=== PATIENT | female | born 1940 | race Caucasian/White ===

== ENCOUNTER 2016-07-08 08:50 | Inpatient (IN) | payer OTHER ==
[~2016-07-08] VITALS: Ht 144.8 cm; Wt 65.0 kg
[~2016-07-08 08:50] MED LIST: METF500T4 PO
[2016-07-08] MEDS ORDERED: SOD CHLORIDE 0.9% 1,000 ML IV STA (09:15)
[2016-07-08] MEDS ORDERED: ONDANSETRON 4 MG INJ IV STA (09:15)
[2016-07-08] MEDS ORDERED: HYDROmorphONE 1 MG/ML SYG IV STA (09:15)
[2016-07-08] MEDS ORDERED: ACETAMINOPHEN 500 MG TAB PO STA (09:20)
--- NOTE | 2016-07-08 09:20 | ERA ---
ER Documentation Chief Complaint Date/Time DATE: 07/08/16 TIME: 09:18 Chief Complaint VOMITING, FEVER, SOB X 2 DAYS HPI This is a 76-year-old female who had the onset this morning at 5 AM of nausea vomiting and diarrhea that is nonbilious and nonbloody. She is complaining of crampy pain in bilateral lower quadrants of the abdomen. She also has pain in her left lower extremity. She has chronic swelling in her left leg which she says the pain is worse in the calf region. No shortness of breath no cough. She patient has had chills and does not know if she has had a fever. Blood sugar is elevated today at 379 at home. The patient takes metformin 500 mg a day. Denies any cough dysuria ROS All systems reviewed and are negative except as per history of present illness. Medications Home Meds Reported Medications Meloxicam* (Meloxicam*) 7.5 Mg/5 Ml Oral.susp, 15 MG PO DAILY, #300 ML 07/08/16 Calcium Carbonate/Vitamin D3 (Oysco 500+D Tablet) 1 Each Tablet, 1 TAB PO DAILY , TAB 07/08/16 Metformin* (Glucophage*) 500 Mg Tab, 500 MG PO 09/21/10 Allergies Allergies: Coded Allergies: No Known Allergy (Verified , 06/06/11) PMhx/Soc History of Surgery: Yes (CSECTION) Anesthesia Reaction: No Hx Neurological Disorder: No Hx Respiratory Disorders: No Hx Cardiac Disorders: No Hx Psychiatric Problems: No Hx Miscellaneous Medical Probl: Yes (CERVICAL CANCER S/P CHEMO XRT 2006) Hx Alcohol Use: No Hx Substance Use: No Hx Tobacco Use: No FmHx Family History: No coronary disease Physical Exam Vitals Vital Signs Date Time Temp Pulse Resp B/P Pulse Ox O2 Delivery O2 Flow Rate FiO2 07/08/16 12:50 92 18 115/50 96 Room Air 07/08/16 11:53 90 18 126/59 96 Room Air 07/08/16 08:56 100.6 99 18 129/60 96 Physical Exam Const: Well-developed, well-nourished Head: Atraumatic, normocephalic Eyes: Normal Conjunctiva, PERRLA, EOMI, normal sclera, no nystagmus ENT: Normal External Ears, Nose and Mouth, moist mucus membranes. Neck: Full range of motion. No meningismus, no lymphadenopathy. Resp: Clear to auscultation bilaterally, no wheezing, rhonchi, rales Cardio: Regular rate and rhythm, no murmurs, S1 S2 present Abd: Soft, mild bilateral lower quadrant abdominal tenderness, non distended. Normal bowel sounds, no guarding or rebound, no pulsitile abdominal masses or bruits Skin: No petechiae or rashes, no ecchymosis , no maculopapular rash Back: No midline or flank tenderness Ext: No cyanosis, left lower leg edema which appears chronic from lymphedema with some firm cath soft tissue is some moderate tenderness, FROM x 4 , normal inspection, neurovascularly intact x 4 Neur: Awake and alert, STR 5/5 x 4, sensation intact x 4, no focal findings, cerebellum intact Psych: Normal Mood and Affect Result Diagram: 07/08/16 0912 07/08/16 0912 Results 24 hrs Laboratory Tests Test 07/08/16 09:12 07/08/16 12:00 White Blood Count 1.210^3/ul Red Blood Count 4.3910^6/ul Hemoglobin 12.4g/dl Hematocrit 38.6% Mean Corpuscular Volume 87.9fl Mean Corpuscular Hemoglobin 28.2pg Mean Corpuscular Hemoglobin Concent 32.1g/dl Red Cell Distribution Width 12.7% Platelet Count 87232^3/UL Mean Platelet Volume 10.8fl Neutrophils % 46.0% Band Neutrophils % 30.0% Lymphocytes % 17.0% Monocytes % 6.0% Eosinophils % 1.0% Neutrophils # 0.610^3/ul Lymphocytes # 0.210^3/ul Monocytes # 0.110^3/ul Eosinophils # 0.010^3/ul Sodium Level 137mmol/L Potassium Level 4.0mmol/L Chloride Level 102mmol/L Carbon Dioxide Level 23mmol/L Anion Gap 16 Blood Urea Nitrogen 24mg/dl Creatinine 1.22mg/dl Glucose Level 295mg/dl Calcium Level 8.9mg/dl Total Bilirubin 0.4mg/dl Direct Bilirubin 0.00mg/dl Indirect Bilirubin 0.4mg/dl Aspartate Amino Transf (AST/SGOT) 29IU/L Alanine Aminotransferase (ALT/SGPT) 34IU/L Alkaline Phosphatase 80IU/L Total Protein 7.3g/dl Albumin 3.8g/dl Globulin 3.50g/dl Albumin/Globulin Ratio 1.08 Lipase 105U/L Urine Color LT. YELLOW Urine Clarity CLEAR Urine pH 6.0 Urine Specific [place] 1.010 Urine Ketones NEGATIVE Urine Nitrite NEGATIVE Urine Bilirubin NEGATIVE Urine Urobilinogen 0.2 E.U./dL Urine Leukocyte Esterase NEGATIVE Urine Microscopic RBC 0-2/HPF Urine Microscopic WBC 0-2/HPF Urine Hemoglobin TRACE Urine Glucose 0.5%% Urine Total Protein NEGATIVE Current Medications Medications (Trade) Dose Ordered Sig/Tristin Route PRN Reason Start Time Stop Time Status Last Admin Dose Admin Sodium Chloride (NS) 1,000 ml @ 1,000 mls/hr Q1H STAT IV 07/08/16 09:15 07/08/16 10:14 DC 07/08/16 09:26 Hydromorphone HCl (Dilaudid) 1 mg ONCE STAT IV 07/08/16 09:15 07/08/16 09:17 DC 07/08/16 09:26 Ondansetron HCl (Zofran Inj) 4 mg ONCE STAT IV 07/08/16 09:15 07/08/16 09:17 DC 07/08/16 09:26 Acetaminophen (Tylenol Tab) 1,000 mg ONCE STAT PO 07/08/16 09:20 07/08/16 09:21 DC 07/08/16 09:26 IV Flush 10 ml 10 ml STK-MED ONCE .ROUTE 07/08/16 10:24 07/08/16 10:25 DC 07/08/16 10:50 Sodium Chloride (NS) 100 ml @ ud STK-MED ONCE .ROUTE 07/08/16 10:24 07/08/16 10:25 DC 07/08/16 10:50 Iohexol 30 ml 30 ml STK-MED ONCE .ROUTE 07/08/16 10:24 07/08/16 10:25 DC 07/08/16 10:50 Cefepime HCl 50 ml @ 100 mls/hr ONCE STAT IVPB 07/08/16 11:17 07/08/16 11:46 DC 07/08/16 11:17 Vancomycin HCl (Vancocin) 250 ml @ 125 mls/hr ONCE ONCE IVPB 07/08/16 11:30 07/08/16 13:29 07/08/16 11:49 Procedures/MDM PROCEDURE: US Lower extremity Venous. CLINICAL INDICATION: Left leg edema TECHNIQUE: Multiple sonographic images of the left lower extremity deep venous system was obtained utilizing grayscale, color-flow, compressive sonography and doppler imaging with augmentation. The images were reviewed on a PACS workstation. COMPARISON: None. FINDINGS: There is normal compressibility and flow within the left common femoral, femoral , posterior tibial, and popliteal veins. The left peroneal vein was not visualized due to edema. RPTAT: AA IMPRESSION: No sonographic evidence for deep venous thrombosis. Left peroneal vein not visualized due to edema. .Davy Bello MD, MD Date Time Electronically viewed and signed by .Davy Bello MD, MD on 07/08/2016 09: 57 .S/ CC: GAGE ORTIZ DO PROCEDURE: CT Abdomen and Pelvis with contrast. CLINICAL INDICATION: Lower abdominal pain. TECHNIQUE: Multiple contiguous axial CT images of the abdomen and pelvis were obtained following the administration of 90 cc of Omnipaque-300. Coronal and sagittal reconstructions were also performed. CTDIvol (mGy): 8.89; Total Exam DLP (mGy-cm): 448.74. One or more of the following dose reduction techniques were utilized: - Automated exposure control. - Adjustment of the mA and/or kV according to patient size. - Use of iterative reconstruction technique. COMPARISON: PET CT 11/20/2011. FINDINGS: Limited imaging of the lower thorax is unremarkable. The liver and spleen are homogeneous in enhancement. The gallbladder, pancreas and adrenal glands are unremarkable. There is considerable decreased asymmetric enhacment of the right kidney which appears secondary to occlusion or severe stenosis of main right renal artery. Enhancement of the peripheral right renal artery branches is observed. The right renal vein appears patent. The right kidney is slightly smaller in size relative to the right kidney. The size of the right kidney is unchanged to slightly smaller when compared to prior examination. There is no perinephric edema. There are no ureteral stones. The abdominal aorta is normal in caliber. Atherosclerotic calcification is present. There is no periaortic / retroperitoneal lymphadenopathy. There is a small hiatal hernia. The stomach is collapsed. The small intestines are unremarkable. Diverticulosis is present. The appendix is normal. There are no focal inflammatory changes of the mesentery. There is no mesenteric lymphadenopathy. There is no ascites. The bladder is distended and normal in contour. Wall thickening of the base of the bladder is observed. Surgical changes compatible with trachelectomy are identified. Extensive arcuate vessel calcification of the residual uterine body is observed. There is no free pelvic fluid. There is no pelvic sidewall or inguinal lymphadenopathy. There is mild concentric wall thickening of the rectosigmoid colon with very mild infiltration of the perirectal fat. Mild facet degenerative changes of the spine are observed. Body wall soft tissues are unremarkable. IMPRESSION: Mild concentric wall thickening of the rectosigmoid colon with very mild infiltration of the perirectal fat. Imaging findings may reflect sequelae of proctocolitis in the appropriate clinical setting. Surgical changes compatible with trachelectomy. The mild thickening of the wall of the base the bladder as well as the thickening of the rectosigmoid colon may be a result of past radiation therapy. Diverticulosis. No evidence of diverticulitis. Considerable decreased asymmetric enhancement of the right kidney with extensive atherosclerotic plaque of the main right renal artery. The smaller peripheral branches demonstrate enhancement. In addition, the right kidney is atrophic. Imaging features suggest sequelae of chronic occlusion or severe stenosis of the right main renal artery. Call report: Imaging findings discussed with Dr. Ortiz at approximately 1135 hours. RPTAT: HLST .Julianne Gama MD, Date Time Electronically viewed and signed by .Julianne Gama MD, MD on 07/08/2016 11:38 .T/ CC: GAGE ORTIZ DO Patient has a low white blood count of 1.2 with 30% bandemia. There is CT evidence of some thickened sigmoid colon could be consistent with a colitis which does fit her clinical picture. Patient had a low-grade temperature 100.6. Lactic acid is currently pending. She received IV fluids as well as intravenous antibiotics. I will admit her to the hospital for fluid resuscitation and intravenous antibiotic therapy and observation. Her neutropenic lab work is concerning Departure Diagnosis: Primary Impression: Neutropenia Qualified Code: D70.9 - Neutropenia, unspecified type Additional Impressions: Bandemia Colitis Condition: Stable GAGE ORTIZ DO July 08, 2016 09:20
[2016-07-08 09:30] LABS: ADD SCAN DIFF NO
[2016-07-08 09:32] LABS: ABNORMAL IP MESSAGE 1; HEMATOCRIT 38.6 % (37.0-47.0); HEMOGLOBIN 12.4 g/dl (12.0-16.0); MEAN CORPUSCULAR HEMOGLOBIN 28.2 pg (29.0-33.0); MEAN CORPUSCULAR HGB CONC 32.1 g/dl (32.0-37.0); MEAN CORPUSCULAR VOLUME 87.9 fl (82.0-101.0); MEAN PLATELET VOLUME 10.8 fl (7.4-10.4); PLATELET COUNT 210 10^3/UL (140-415); RED BLOOD COUNT 4.39 10^6/ul (4.20-5.40); RED CELL DISTRIBUTION WIDTH 12.7 % (11.5-14.5); WHITE BLOOD COUNT 1.2 10^3/ul (4.8-10.8)
--- NOTE | 2016-07-08 09:58 | RADRPT ---
PROCEDURE: US Lower extremity Venous. CLINICAL INDICATION: Left leg edema TECHNIQUE: Multiple sonographic images of the left lower extremity deep venous system was obtained utilizing grayscale, color-flow, compressive sonography and doppler imaging with augmentation. The images were reviewed on a PACS workstation. COMPARISON: None. FINDINGS: There is normal compressibility and flow within the left common femoral, femoral, posterior tibial, and popliteal veins. The left peroneal vein was not visualized due to edema. RPTAT: AA IMPRESSION: No sonographic evidence for deep venous thrombosis. Left peroneal vein not visualized due to edema. .Davy Bello MD, MD Date Time Electronically viewed and signed by .Davy Bello MD, on 07/08/2016 09:57 .S/
[2016-07-08 10:12] LABS: ALBUMIN 3.8 g/dl (3.3-4.9); ALBUMIN/GLOBULIN RATIO 1.08; BILIRUBIN,INDIRECT 0.4 mg/dl (0-1.1); BILIRUBIN,TOTAL 0.4 mg/dl (0.2-1.3); CALCIUM 8.9 mg/dl (8.4-10.2); CREATININE 1.22 mg/dl (0.44-1.00); TOTAL PROTEIN 7.3 g/dl (6.1-8.1)
[2016-07-08] MEDS ORDERED: IOHEXOL 300MG/ML 30 ML BTL ONE (10:24)
[2016-07-08] MEDS ORDERED: SOD CHLORIDE 0.9% 100 ML ONE (10:24)
[2016-07-08] MEDS ORDERED: CALC1TAB79 PO (10:55)
[2016-07-08] MEDS ORDERED: MELO7.5O PO (10:55)
[2016-07-08 11:06] LABS: LYMPHOCYTES # 0.2 10^3/ul (0.8-2.9); MONOCYTE # 0.1 10^3/ul (0.3-0.9); NEUTROPHIL # 0.6 10^3/ul (1.6-7.5)
[2016-07-08] MEDS ORDERED: CEFEPIME 2GM/50 ML (PMX) 50 ML IVPB STA (11:17)
[2016-07-08] MEDS ORDERED: VANCOMYCIN 1 GM (PMX) 250 ML IVPB ONE (11:30)
--- NOTE | 2016-07-08 11:38 | RADRPT ---
PROCEDURE: CT Abdomen and Pelvis with contrast. CLINICAL INDICATION: Lower abdominal pain. TECHNIQUE: Multiple contiguous axial CT images of the abdomen and pelvis were obtained following t he administration of 90 cc of Omnipaque-300. Coronal and sagittal reconstructions were also perform ed. CTDIvol (mGy): 8.89; Total Exam DLP (mGy-cm): 448.74. One or more of the following dose reduction techniques were utilized: - Automated exposure control. - Adjustment of the mA and/or kV according to patient size. - Use of iterative reconstruction technique. COMPARISON: PET CT 11/20/2011. FINDINGS: Limited imaging of the lower thorax is unremarkable. The liver and spleen are homogeneous in enhancement. The gallbladder, pancreas and adrenal glands a re unremarkable. There is considerable decreased asymmetric enhacment of the right kidney which appears secondary to occlusion or severe stenosis of main right renal artery. Enhancement of the peripheral right renal a rtery branches is observed. The right renal vein appears patent. The right kidney is slightly smal ler in size relative to the right kidney. The size of the right kidney is unchanged to slightly sma ller when compared to prior examination. There is no perinephric edema. There are no ureteral ston es. The abdominal aorta is normal in caliber. Atherosclerotic calcification is present. There is no candido aortic / retroperitoneal lymphadenopathy. There is a small hiatal hernia. The stomach is collapsed. The small intestines are unremarkable. Diverticulosis is present. The appendix is normal. There are no focal inflammatory changes of the mesentery. There is no mesenteric lymphadenopathy. There is no ascites. The bladder is distended and normal in contour. Wall thickening of the base of the bladder is obser ihsan. Surgical changes compatible with trachelectomy are identified. Extensive arcuate vessel calcif ication of the residual uterine body is observed. There is no free pelvic fluid. There is no pelvic sidewall or inguinal lymphadenopathy. There is mild concentric wall thickening of the rectosigmoid colon with very mild infiltration of the perirectal fat. Mild facet degenerative changes of the spine are observed. Body wall soft tissues are unremarkable. IMPRESSION: Mild concentric wall thickening of the rectosigmoid colon with very mild infiltration of the perirec jessica fat. Imaging findings may reflect sequelae of proctocolitis in the appropriate clinical setting . Surgical changes compatible with trachelectomy. The mild thickening of the wall of the base the stacy dder as well as the thickening of the rectosigmoid colon may be a result of past radiation therapy. Diverticulosis. No evidence of diverticulitis. Considerable decreased asymmetric enhancement of the right kidney with extensive atherosclerotic jose que of the main right renal artery. The smaller peripheral branches demonstrate enhancement. In ad dition, the right kidney is atrophic. Imaging features suggest sequelae of chronic occlusion or sev ere stenosis of the right main renal artery. Call report: Imaging findings discussed with Dr. Ortiz at approximately 1135 hours. RPTAT: HLST .Julianne Gama MD, MD Date Time Electronically viewed and signed by .Julianne Gama MD, MD on 07/08/2016 11:38 .T/
[2016-07-08 12:19] LABS: ADD UMIC YES; URINE BILIRUBIN (Dip) NEGATIVE (NEGATIVE); URINE BLOOD (Dip) TRACE (NEGATIVE); URINE COLOR LT. YELLOW (YELLOW); URINE KETONES (Dip) NEGATIVE (NEGATIVE); URINE LEUKOCYTE ESTERASE (Dip) NEGATIVE (NEGATIVE); URINE NITRITE (Dip) NEGATIVE (NEGATIVE); URINE TOTAL PROTEIN (Dip) NEGATIVE (NEGATIVE); URINE UROBILINOGEN (Dip) 0.2 E.U./dL (0.1-1.0)
[2016-07-08 12:34] LABS: URINE RBCS 0-2 /HPF (0)
[2016-07-08] MEDS ORDERED: SOD CHLORIDE 0.9% 1,000 ML IV SCH (13:26)
[2016-07-08] MEDS ORDERED: ACETAMINOPHEN 325 MG TAB PO PRN ×2 (13:30→17:30)
[2016-07-08] MEDS ORDERED: ONDANSETRON 4 MG INJ IV PRN (13:30)
[2016-07-08] MEDS ORDERED: SODIUM CHLORIDE 0.9% 1L BAG IV* STA (14:02)
[2016-07-08] MEDS ORDERED: METF500T4 PO (14:54)
[2016-07-08 16:12] VITALS: PULSE 94
[2016-07-08 16:39] VITALS: Ht 144.8 cm; Wt 65.0 kg
[2016-07-08 16:47] VITALS: BP 176/64; PULSE 69; RESP 16
[2016-07-08] MEDS ORDERED: GLUCAGON 1 MG INJ IM PRN (17:30)
[2016-07-08] MEDS ORDERED: GLUCOSE GEL 15 GRAM TUBE BUCCAL PRN (17:30)
[2016-07-08] MEDS ORDERED: NACL 0.9% 3 ML SYG IV SCH (17:30)
[2016-07-08] MEDS ORDERED: DEXTROSE 50% 50 ML SYRINGE IV PRN ×2 (17:30)
[2016-07-08] MEDS ORDERED: VANCOMYCIN IV PER PHARMACY XX SCH (17:30)
[2016-07-08] MEDS ORDERED: ZOLPIDEM 5 MG TAB PO PRN (17:30)
[2016-07-08] MEDS ORDERED: GLUCOSE GEL 15 GRAM TUBE PO PRN ×2 (17:30)
[2016-07-08] MEDS ORDERED: DOCUSATE SODIUM 100 MG CAP PO PRN (17:30)
[2016-07-08] MEDS ORDERED: morphine 2 MG INJ IV PRN (17:30)
[2016-07-08] MEDS ORDERED: HYDROCODONE/APAP (5/325) TAB PO PRN (17:30)
[2016-07-08] MEDS: INSULIN ASPART [NOVOLOG] 3 ML PEN SC SCH ×2 (18:02→20:38)
[2016-07-08] MEDS: SOD CHLORIDE 0.9% 1,000 ML IV SCH (18:07)
[2016-07-08] MEDS: PIPER-TAZO 3.375 GM IV (PMX) 100 ML IVPB SCH (18:07)
[2016-07-08 20:25] VITALS: PULSE 92
[2016-07-08] MEDS: INSULIN GLARGINE [LANtus] 3 ML PEN SC SCH (20:37)
[2016-07-08] MEDS: HEPARIN 5,000 UNIT/0.5 ML VIAL SC SCH (20:37)
[2016-07-08 20:44] VITALS: BP 92/55; RESP 18
[2016-07-08] MEDS ORDERED: SOD CHLORIDE 0.9% 500 ML IV ONE (21:55)
--- NOTE | 2016-07-08 23:07 | CONS ---
DATE OF ADMISSION: 07/08/2016 DATE OF CONSULTATION: 07/08/2016 TYPE OF CONSULTATION: Infectious disease. REASON FOR CONSULTATION: Antibiotic management. HISTORY OF PRESENT ILLNESS: Shakira Byrd is a 76-year-old female who comes in with nausea, vo miting, fever, and shortness of breath of 2 days' duration. The patient had the onset of nausea and vomiting at 5:00 a.m. this morning. She is complaining of crampy abdominal pain in both lower quad rants of the abdomen. She has pain in her left lower extremity as well as swelling, which is chroni c, in her left leg. The pain is worse in the calf region. She complains of chills without fever. Her blood sugar was 379 at home. She takes metformin 500 mg per day. PAST SURGICAL HISTORY: Status post . PAST MEDICAL HISTORY: History of cervical cancer status post chemotherapy in 2006. PHYSICAL EXAMINATION: GENERAL: The patient is an elderly appearing female who is awake, responsive with her daug hter by the bedside. She is in no acute distress, but complaining of pain in both lower extremities . SKIN: Without generalized rash. HEENT: Within normal limits. NECK: Supple. LYMPH NODES: None palpable. CHEST: Decreased breath sounds at the bases. HEART: Without murmur or gallop. ABDOMEN: Soft. She has some bilateral lower quadrant abdominal tenderness without rebound or guard ing. BACK: Without flank tenderness. EXTREMITIES: Without cyanosis or clubbing. The left lower extremity is edematous and also quite re d. The right lower extremity is bandaged. RECTAL AND GENITAL: She has a Angulo catheter in place. NEUROLOGIC: No focal neurological abnormalities. ANCILLARY LABORATORY DATA: White count is 1.2. She has 46% neutrophils, 30% bands, so she is clear ly septic. H and H 12.4 and, platelet count 210,000. BUN and creatinine 24/1.22, glucose is 295. She is chilling, while I am examining her. HOSPITAL COURSE: The patient was started on vancomycin and cefepime. I added 2 blood cultures to h er regimen. An abdominal CT scan was done which showed mild concentric wall thickening of the recto sigmoid colon with very mild infiltration of the perirectal fat that may reflect sequelae of proctoc olitis in the appropriate clinical setting. Surgical changes compatible with ____ colectomy, mild t hickening of the wall at the base of the bladder as well as thickening of the rectosigmoid colon may be result of past radiation therapy for her cervical cancer. IMPRESSION AND PLAN: The patient, no doubt, is septic, etiology is unclear. Her urine is negative, nitrites negative, leukocyte esterase is negative. We have a chest x-ray that I can see. So, ther e are limited images of the lower thorax, which are unremarkable. We should get a chest x-ray in th e a.m. We got 2 sets of blood cultures. I will dictate my findings to the hospitalist. Dictated By: SHANTA JAEGER MD CHET/NTS Conf#: [id number] DID#: [id number] CC: HEDY MAY MD;*End*
--- NOTE | 2016-07-08 23:09 | CONS ---
DATE OF ADMISSION: 07/08/2016 DATE OF CONSULTATION: 07/08/2016 ADDENDUM The patient is obviously septic. The most likely source is cellulitis of the left lower extremity. We have to rule out the possibility of pneumonia as well. The redness in her leg goes up to her th igh and almost up to her groin, so this is the most likely source of her leukopenia and her sepsis. Dictated By: SHANTA JAEGER MD, JD/NTS Conf#: [id number] DID#: [id number] CC: HEDY MAY MD;*EndCC*
[2016-07-08 23:26] VITALS: BP 93/45; RESP 20
[2016-07-09] VITALS (12 sets, daily range): BP systolic 90–128; BP diastolic 54–65; PULSE 45–92; RESP 16–20
[2016-07-09] MEDS: PIPER-TAZO 3.375 GM IV (PMX) 100 ML IVPB SCH ×4 (01:36→17:33)
[2016-07-09] MEDS: ACCU-CHEK XX SCH (01:40)
[2016-07-09 06:47] LABS: ADD SCAN DIFF NO
[2016-07-09 06:52] LABS: ABNORMAL IP MESSAGE 1; HEMATOCRIT 35.7 % (37.0-47.0); HEMOGLOBIN 11.3 g/dl (12.0-16.0); MEAN CORPUSCULAR HGB CONC 31.7 g/dl (32.0-37.0); MEAN CORPUSCULAR VOLUME 88.4 fl (82.0-101.0); MEAN PLATELET VOLUME 10.9 fl (7.4-10.4); PLATELET COUNT 157 10^3/UL (140-415); RED BLOOD COUNT 4.04 10^6/ul (4.20-5.40); RED CELL DISTRIBUTION WIDTH 13.2 % (11.5-14.5); WHITE BLOOD COUNT 9.6 10^3/ul (4.8-10.8)
--- NOTE | 2016-07-09 06:59 | HP ---
DATE OF ADMISSION: 07/08/2016 CHIEF COMPLAINT: Nausea, vomiting and diarrhea. HISTORY OF PRESENT ILLNESS: The patient is a 76-year-old female with a history of cervical cancer, stage II, status post chemoradiation in 2011 as well as bilateral groin lymph node dissection. Stefany ent has had recurrent left lower extremity cellulitis with chronic lymphedema. The patient states t hat starting last night she began to have severe nausea, vomiting as well as diarrhea. She felt ext remely weak to the point where she could not ambulate. The patient presented to the ED where she knox d a CT abdomen that showed proctocolitis. The patient currently has no significant complaints. Mos t of the history is obtained from the patient's daughter who is bedside. PAST MEDICAL HISTORY: 1. Stage II cervical cancer, status post-surgery and chemoradiation in 2011. The patient is not on any chemotherapy at this time, has not been since 2011. 2. Noninsulin requiring diabetes. HOME MEDICATIONS: Calcium vitamin D, metformin, Meloxicam. ALLERGIES: NO KNOWN DRUG ALLERGIES. FAMILY HISTORY: Diabetes. SOCIAL HISTORY: Denies any alcohol, tobacco, or drug abuse. REVIEW OF SYSTEMS: A 12-point review of systems negative except as described. PHYSICAL EXAMINATION: VITAL SIGNS: T-current is 98.1, T-max is 100.6, pulse 69, respiratory rate 16, BP is 136/64, satura tion 97% on room air. GENERAL: No acute distress, lethargic. HEENT: Normocephalic, atraumatic. CHEST: Clear to auscultation. CARDIOVASCULAR: Regular rate and rhythm. ABDOMEN: Nondistended, nontender, soft. EXTREMITIES: No clubbing, cyanosis. Cellulitis with erythema is noted in the left lower extremity. LABORATORY DATA: White count is 1.2, hemoglobin is 12.4. Chemistry within normal limits except for glucose of ____. Lactic acid is 5.3. DIAGNOSTICS: Ultrasound of the lower extremity venous shows no evidence for DVT. Abdominopelvic CT shows proctocolitis, diverticulosis, no evidence of diverticulitis, atherosclerosis in the right re nal artery, right kidney is atrophic. Image suggests sequellae of coronary occlusion or severe sten osis of the right renal artery. ASSESSMENT AND PLAN: 1. Severe sepsis, likely secondary to colitis and/or cellulitis in the left lower extremity. The p atient has been having symptoms of gastroenteritis. The patient also has cellulitis in the left low er extremity, but this is a chronic issue as the patient has presumed lymphedema with intermittent e rythema. Will treat with broad spectrum antibiotics. We will follow up on lactic acid level. We w ill get an infectious disease consultation. We will follow up on cultures. 2. History of diabetes. Will check A1c. Sugars are severely elevated at this time. Will put the patient on sliding scale as well as Lantus. 3. History of cervical cancer, status post-surgery and chemoradiation in 2011. The patient is no l onger on any chemotherapy. 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 5. Severe leukopenia, this could be from underlying sepsis. We will continue to monitor. 6. Acute versus chronic kidney injury. The patient's creatinine was normal in 2011. The patient m ay have elevation of creatinine secondary to acute tubular necrosis from sepsis. Will monitor renal function. Will treat with IV fluids. 7. Prophylaxis. Lovenox. Dictated By: HEDY MAY MD BS/NTS Conf#: [id number] DID#: [id number]
[2016-07-09 07:09] LABS: ALBUMIN 2.6 g/dl (3.3-4.9); POTASSIUM 4.7 mmol/L (3.5-5.1)
[2016-07-09 07:12] LABS: ALBUMIN/GLOBULIN RATIO 0.81; BILIRUBIN,INDIRECT 0.2 mg/dl (0-1.1); BILIRUBIN,TOTAL 0.2 mg/dl (0.2-1.3); CALCIUM 7.4 mg/dl (8.4-10.2); CREATININE 1.78 mg/dl (0.44-1.00); PHOSPHORUS 5.6 mg/dl (2.5-4.9); TOTAL PROTEIN 5.8 g/dl (6.1-8.1)
[2016-07-09 07:13] LABS: CHOL/HDL RATIO 2.1 RATIO; MAGNESIUM 1.2 mg/dl (1.7-2.5)
[2016-07-09] MEDS: INSULIN ASPART [NOVOLOG] 3 ML PEN SC SCH ×4 (07:55→20:20)
--- NOTE | 2016-07-09 08:11 | RADRPT ---
PROCEDURE: XR Chest. CLINICAL INDICATION: Sepsis TECHNIQUE: A single AP view of the chest was obtained. COMPARISON: Chest x-ray dated 11/26/2006 FINDINGS: No focal airspace opacification, pleural effusion or pneumothorax is seen. There is mild bibasilar a telectasis. The cardiomediastinal silhouette is within normal limits for size. Calcifications are s een within the aortic arch. The osseous structures are unremarkable. IMPRESSION: 1. No radiographic evidence of acute cardiopulmonary disease. 2. Mild bibasilar atelectasis. 3. Aortic atherosclerosis. RPTAT: HH .Delphine Burns MD, MD Date Time Electronically viewed and signed by .Delphine Burns MD, on 07/09/2016 08:10 .G/
[2016-07-09] MEDS: HEPARIN 5,000 UNIT/0.5 ML VIAL SC SCH ×2 (08:51→20:27)
[2016-07-09] MEDS: SOD CHLORIDE 0.9% 1,000 ML IV SCH ×3 (08:51→21:20)
[2016-07-09 09:19] LABS: MONOCYTE # 0.3 10^3/ul (0.3-0.9); MYELOCYTES # 0.5; NEUTROPHIL # 2.5 10^3/ul (1.6-7.5)
[2016-07-09] MEDS ORDERED: VANCOMYCIN 1 GM in NS 250 ML IVPB SCH (11:00)
--- NOTE | 2016-07-09 11:56 | CONS ---
DATE OF ADMISSION: 07/08/2016 DATE OF CONSULTATION: 07/09/2016 TYPE OF CONSULTATION: Nephrology. REASON FOR CONSULTATION: Acute kidney injury. PHYSICIAN REQUESTING CONSULT: Dr. Albarran. HISTORY OF PRESENT ILLNESS: This is a 76-year-old female with a past medical history of cervical ca ncer stage II, status post chemo and radiation in 2011, history of diabetes, questionable history of CKD, who presents to [facility] with fever, vomiting and shortness of breath x2 d ays. Patient does complain of abdominal pain with associated nausea and vomiting during this time. She was also noted to have increased erythema o the lower extremity. As a result, she came to [facility] for evaluation. Upon arrival, the patient had a CT scan of the abdomen and pelvis with contrast which showed evidence of right renal artery stenosis and concentric wall thick ening of the rectosigmoid colon suggesting proctocolitis. The patient in the emergency room was giv en IV fluids, IV antibiotics and admitted to telemetry for evaluation. In terms of the patient's renal history, the patient is not aware of having underlying CKD. The pat iebob does have longstanding diabetes. She denies any diabetic retinopathy. She does complain of na usea, vomiting, but denies any rash or frothy urine. PAST MEDICAL HISTORY: As stated above, history of cervical cancer, history of diabetes. PAST SURGICAL HISTORY: Status post , status post cervical resection. ALLERGIES: NO KNOWN DRUG ALLERGIES. FAMILY HISTORY: Noncontributory. SOCIAL HISTORY: Does not drink, smoke or do drugs. MEDICATIONS: Patient medications have been reviewed. REVIEW OF SYSTEMS: A 14-point review of systems was conducted. Pertinent positives stated in HPI, otherwise negative. PHYSICAL EXAMINATION: VITAL SIGNS: Blood pressure is 103/55, respirations 20, pulse 68, temperature 98.4. HEENT: Head is normocephalic. NECK: Supple. HEART: Regular rate. LUNGS: Show diminished breath sounds at the base. ABDOMEN: Soft, nontender to palpation. No rebound or guarding. EXTREMITIES: Negative for clubbing, cyanosis. Positive edema, positive erythema of lower extremity . DERMATOLOGIC: No rashes. MUSCULOSKELETAL: No joint effusions. NEUROLOGIC: No focal deficits. MEDICATIONS: Have been reviewed. LABORATORY DATA: Shows a white count of 9.6, hemoglobin 9.2, hematocrit 35.7, platelet count of 157 . Sodium 135, potassium 4.7, chloride 103, BUN 32, creatinine 1.78. Lactic acid 3.2. Hemoglobin A 1c 8.6. Urinalysis reviewed. No RBCs, WBCs, no protein noted. IMAGING STUDIES: As stated in HPI. ASSESSMENT AND PLAN: This is a 76-year-old female who presents with: 1. Nonoliguric acute kidney injury on top of chronic kidney disease with unknown baseline creatinin e. Etiology of acute kidney injury is likely multifactorial secondary to hemodynamics, sepsis, NSAI D use, possible contrast-associated nephropathy. The patient's initial urinalysis was bland. The p atient's CT scan shows no hydronephrosis, but there is evidence of renal artery stenosis. Plan at t his point is to repeat the patient's urinalysis. Will check urine electrolytes, check a FENa (fract ional excretion of urea). We will also quantify the patient's proteinuria by checking a protein/cre atinine ratio and albumin/creatinine ratio. Would continue IV fluids. Continue IV antibiotics. Ot herwise, continue supportive care, renally dose meds, avoid nephrotoxins. 2. Chronic kidney disease secondary to possible renal vascular hypertension and diabetes. The yogesh ent is currently in acute kidney injury as stated above. The patient's CT scan does show evidence o f right renal artery stenosis. Plan at this point is to treat acute kidney injury as stated above. Will continue disease factor modification. We will do further evaluation of renal artery stenosis. 3. Renal artery stenosis. Patient's CT angio shows possible stenosis of the right main artery. Pl an at this point is to get a right renal arterial Doppler ultrasound to evaluate renal parenchyma an d to blood flow in the right renal artery. If the patient's right kidney is significantly atrophic, it is unclear if intervention would provide any clinical benefit. Would also possibly consider a v ascular surgery evaluation. Will monitor closely. 4. Mineral bone disorder. Continue to monitor calcium and phosphorus levels. 5. Anemia. Continue to monitor H and H levels. No need for Epogen. 6. Severe sepsis and lower extremity cellulitis. Continue current antibiotic regimen. 7. Diabetes. Continue current insulin regimen. 8. Gastrointestinal and deep vein thrombosis prophylaxis. 9. History of cervical cancer status post chemoradiation. 10. Hypomagnesemia. Replete with magnesium sulfate. Dictated By: KANDY MCELROY Conf#: [id number] DID#: [id number]
--- NOTE | 2016-07-09 12:04 | PN ---
Date/Time of Note Date/Time of Note DATE: 07/09/16 TIME: 11:57 Assessment/Plan VTE Prophylaxis VTE Prophylaxis Intervention: LMWH Lines/Catheters IV Catheter Type (from Nrs): Peripheral IV Assessment/Plan Chief Complaint/Hosp Course 1. Severe sepsis secondary to sepsis from left lower extremity cellulitis as well as UTI Patient has chronic lymphedema in this left lower extremity secondary to previous surgery for cervical cancer Blood culture shows likely strep and 2 out of 2 cultures Urine culture is positive for gram-negative rods Continue broad-spectrum antibiotics with vancomycin and Zosyn ID consultation appreciated 2. History of diabetes-A1c is 8.6 Continue Lantus and sliding scale 3. History of cervical cancer, status post-surgery and chemoradiation in 2012 The patient is no longer on any chemotherapy, no acute issues 4. 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 5. Severe leukopenia secondary to severe sepsis-resolved 6. Acute versus chronic kidney injury likely secondary to ATN from sepsis Creatinine was normal in 2012 Nephrology consultation Increase IV fluid rate 7. Chronic ulcer in medial malleolus of right lower extremity likely a venous insufficiency ulcer Vascular consult Wound care consult Prophylaxis- Lovenox Problems: Subjective 24 Hr Interval Summary Constitutional: no complaints Exam/Review of Systems Vital Signs Vitals Vital Signs Date Time Temp Pulse Resp B/P Pulse Ox O2 Delivery O2 Flow Rate FiO2 07/09/16 11:15 98.2 78 16 98/65 97 07/08/16 16:47 Room Air Intake and Output 07/08/16 07/08/16 07/09/16 15:00 23:00 07:00 Intake Total 150 ml 1550 ml Output Total 400 ml 350 ml Balance -250 ml 1200 ml Exam Constitutional: alert Respiratory: clear to auscultation Cardiovascular: regular rate and rhythm Gastrointestinal: soft, No distended Musculoskeletal: No nl extremities to inspection Results Result Diagram: 07/09/16 0610 07/09/16 0610 Results 24 hrs Laboratory Tests Test 07/08/16 12:00 07/08/16 12:55 07/08/16 17:35 07/08/16 20:29 Urine Color LT. YELLOW Urine Clarity CLEAR Urine pH 6.0 Urine Specific [place] 1.010 Urine Ketones NEGATIVE Urine Nitrite NEGATIVE Urine Bilirubin NEGATIVE Urine Urobilinogen 0.2 E.U./dL Urine Leukocyte Esterase NEGATIVE Urine Microscopic RBC 0-2 Urine Microscopic WBC 0-2 Urine Hemoglobin TRACE Urine Glucose 0.5% H Urine Total Protein NEGATIVE Lactic Acid Level 5.3 *H Bedside Glucose 165 206 Test 07/08/16 21:05 07/09/16 01:40 07/09/16 06:10 07/09/16 08:34 Lactic Acid Level 4.7 *H 3.2 H Bedside Glucose 164 114 White Blood Count 9.6 # Red Blood Count 4.04 L Hemoglobin 11.3 L Hematocrit 35.7 L Mean Corpuscular Volume 88.4 Mean Corpuscular Hemoglobin 28.0 L Mean Corpuscular Hemoglobin Concent 31.7 L Red Cell Distribution Width 13.2 Platelet Count 157 # Mean Platelet Volume 10.9 H Neutrophils % 26.0 L Band Neutrophils % 48.0 H Lymphocytes % 10.0 L Monocytes % 3.0 Eosinophils % Metamyelocytes % 7.0 H Myelocytes % 5.0 H Promyelocytes % 1.0 H Neutrophils # 2.5 Lymphocytes # 1.0 Monocytes # 0.3 Eosinophils # Metamyelocytes # 0.7 Myelocytes # 0.5 Promyelocytes # 0.1 Differential Comment MANUAL DIFF Sodium Level 135 Potassium Level 4.7 Chloride Level 103 Carbon Dioxide Level 22 Anion Gap 15 Blood Urea Nitrogen 32 H Creatinine 1.78 H Glucose Level 138 # Hemoglobin A1c 8.6 H Calcium Level 7.4 L Phosphorus Level 5.6 H Magnesium Level 1.2 L Total Bilirubin 0.2 Direct Bilirubin 0.00 Indirect Bilirubin 0.2 Aspartate Amino Transf (AST/SGOT) 71 H Alanine Aminotransferase (ALT/SGPT) 36 Alkaline Phosphatase 39 #L Total Protein 5.8 #L Albumin 2.6 #L Globulin 3.20 Albumin/Globulin Ratio 0.81 Triglycerides Level 83 Cholesterol Level 104 LDL Cholesterol, Calculated 38 HDL Cholesterol 49 Cholesterol/HDL Ratio 2.1 Medications Medications Current Medications Sodium Chloride (NS) 1,000 ml @ 150 mls/hr Q6H40M IV Last administered on 07/09t 08:51; Admin Dose 100 MLS/HR; Start 07/08/16 at 17:04 Ondansetron HCl (Zofran Inj) 4 mg Q6H PRN IV NAUSEA AND/OR VOMITING; Start at 17:30 Acetaminophen (Tylenol Tab) 650 mg Q6H PRN PO PAIN LEVEL 1-3 OR FEVER; Start at 17:30 Acetaminophen/ Hydrocodone Bitart ([place] (5/325)) 1 tab Q6H PRN PO MODERATE PAIN LEVEL 4-6; Start 07/08/16 at 17:30 Morphine Sulfate (morphine) 2 mg Q4H PRN IV SEVERE PAIN LEVEL 7-10 Last administered on 07/08/16 21:30; Admin Dose 2 MG; Start 07/08/16 at 17:30 Docusate Sodium (Colace) 100 mg Q12H PRN PO CONSTIPATION; Start 07/08/16 at 17: 30 Zolpidem Tartrate (Ambien) 5 mg QHS PRN PO SLEEP; Start 07/08/16 at 17:30 Heparin Sodium (Porcine) 5000 unit 5,000 unit Q12 SC Last administered on 08:51; Admin Dose 5,000 UNIT; Start 07/08/16 at 21:00 Piperacillin Sod/ Tazobactam Sod (Zosyn 3.375gm/ 100 ml (Pmx)) 100 ml @ 200 mls /hr Q6 IVPB Last administered on 07/09/16 06:43; Admin Dose 200 MLS/HR; Start 07/08/16 at 18:00 Insulin Glargine (Lantus) 10 unit DAILY@20 SC Last administered on 07/08/16 20 :37; Admin Dose 10 UNIT; Start 07/08/16 at 20:00 Diagnostic Test (Pha) (Accu-Chek) 1 ea 02 XX ; Start 07/09/16 at 02:00 Miscellaneous Information 1 ea NOTE XX ; Start 07/08/16 at 17:30 Glucose (Glutose) 15 gm Q15M PRN PO DECREASED GLUCOSE; Start 07/08/16 at 17:30 Glucose (Glutose) 22.5 gm Q15M PRN PO DECREASED GLUCOSE; Start 07/08/16 at 17: 30 Dextrose (D50w Syringe) 25 ml Q15M PRN IV DECREASED GLUCOSE; Start 07/08/16 at 17:30 Dextrose (D50w Syringe) 50 ml Q15M PRN IV DECREASED GLUCOSE; Start 07/08/16 at 17:30 Glucagon (Glucagen) 1 mg Q15M PRN IM DECREASED GLUCOSE; Start 07/08/16 at 17:30 Glucose 15 gm 15 gm Q15M PRN BUCCAL DECREASED GLUCOSE; Start 07/08/16 at 17:30 Vancomycin HCl (Vancocin) 250 ml @ 125 mls/hr Q24H IVPB Last administered on t 11:18; Admin Dose 125 MLS/HR; Start 07/09/16 at 11:00 HEDY MAY July 09, 2016 12:04
[2016-07-09] MEDS: ONDANSETRON 4 MG INJ IV PRN ×2 (12:31→17:32)
--- NOTE | 2016-07-09 19:00 | PN ---
DATE: 07/09/2016 SUBJECTIVE: The patient is alert, lying comfortably in bed, complaining of left lower extremity miladis n. No fevers. WBC today 9.6, platelets 157, neutrophils 26, bands 48, lymphs 10, monos 3. BUN 32, creatinine 1.78 . MICROBIOLOGY: Blood cultures are growing gram-positive cocci in pairs and chains. Urine culture gr owing gram-negative rods. ANTIMICROBIALS: The patient is on: 1. IV vancomycin. 2. Zosyn. PHYSICAL EXAMINATION: GENERAL: This is an obese, well-developed, elderly woman who is awake, in no distress. HEENT: Head atraumatic, normocephalic. Sclerae anicteric. Buccal mucosa dry. NECK: Supple, trachea midline. CHEST: Rise symmetrical. Breath sounds diminished to bases. HEART: S1, S2. ABDOMEN: Soft, bowel tones present. EXTREMITIES: With left lower extremity edema, erythema. ASSESSMENT: 1. Sepsis with fever, bandemia, leukopenia, present on admission. 2. Bacteremia, possibly secondary to cellulitis of left lower extremity. 3. Gram-negative rods urinary tract infection. 4. History of cervical cancer, status post chemotherapy in 2006 as well as radiation. 5. Diabetes. PLAN: The patient remains clinically stable. Extremity ultrasound revealed no evidence of thrombos is. She is on broad-spectrum antibiotics. Chest x-ray revealed no evidence of pneumonia, pending f inal cultures. Dictated By: MAXIME BLACKWELL CERTIFIED NOVELL ADMINISTRATOR for SHANTA CURTIS/NTS Conf#: [id number] DID#: [id number]
[2016-07-09] MEDS: INSULIN GLARGINE [LANtus] 3 ML PEN SC SCH (20:27)
[2016-07-10] VITALS (13 sets, daily range): BP systolic 116–142; BP diastolic 54–68; PULSE 79–92; RESP 18–20
[2016-07-10] MEDS: PIPER-TAZO 3.375 GM IV (PMX) 100 ML IVPB SCH ×2 (00:46→05:46)
[2016-07-10] MEDS: ACCU-CHEK XX SCH (02:00)
[2016-07-10] MEDS: SOD CHLORIDE 0.9% 1,000 ML IV SCH ×3 (05:46→21:05)
[2016-07-10 07:20] LABS: ADD SCAN DIFF NO
[2016-07-10 07:38] LABS: ABNORMAL IP MESSAGE 1; HEMATOCRIT 30.9 % (37.0-47.0); HEMOGLOBIN 10.3 g/dl (12.0-16.0); MEAN CORPUSCULAR HEMOGLOBIN 28.5 pg (29.0-33.0); MEAN CORPUSCULAR HGB CONC 33.3 g/dl (32.0-37.0); MEAN CORPUSCULAR VOLUME 85.4 fl (82.0-101.0); MEAN PLATELET VOLUME 11.3 fl (7.4-10.4); PLATELET COUNT 144 10^3/UL (140-415); RED BLOOD COUNT 3.62 10^6/ul (4.20-5.40); RED CELL DISTRIBUTION WIDTH 13.2 % (11.5-14.5); WHITE BLOOD COUNT 12.4 10^3/ul (4.8-10.8)
[2016-07-10 07:54] LABS: POTASSIUM 3.4 mmol/L (3.5-5.1)
[2016-07-10] MEDS: INSULIN ASPART [NOVOLOG] 3 ML PEN SC SCH ×4 (07:55→20:23)
[2016-07-10 07:57] LABS: CREATININE 1.64 mg/dl (0.44-1.00)
[2016-07-10 07:58] LABS: CALCIUM 6.9 mg/dl (8.4-10.2); MAGNESIUM 1.4 mg/dl (1.7-2.5); PHOSPHORUS 3.4 mg/dl (2.5-4.9)
[2016-07-10] MEDS ORDERED: POTASSIUM CHLORIDE (SR) 20 MEQ TAB PO STA ×2 (08:12→10:02)
[2016-07-10 09:51] LABS: LYMPHOCYTES # 0.4 10^3/ul (0.8-2.9)
[2016-07-10] MEDS: HEPARIN 5,000 UNIT/0.5 ML VIAL SC SCH ×2 (10:01→21:09)
--- NOTE | 2016-07-10 10:22 | PN ---
DATE: 07/10/2016 SUBJECTIVE: The patient is stable, no acute events overnight. No fevers, chills, nausea, vomiting. No shortness of breath. OBJECTIVE: VITAL SIGNS: Blood pressure is 131/56, respirations 18, pulse 90, temperature 97.9. HEENT: Head is normocephalic. NECK: Supple. HEART: Regular rate. LUNGS: Show diminished breath sounds at the bases. ABDOMEN: Soft, nontender to palpation. No rebound or guarding. EXTREMITIES: Negative for clubbing, cyanosis. Positive erythema. Trace edema. DERMATOLOGIC: No rashes. MUSCULOSKELETAL: No joint effusions. NEUROLOGIC: No change in exam. MEDICATIONS: The patient's medications have been reviewed. LABORATORY DATA: Shows sodium 132, potassium 3.4, chloride 109, BUN 36, creatinine 1.65, glucose __ ___65. White count 12.4, hemoglobin 10.3, hematocrit 30.9, platelet count is 144. IMAGING: The patient's CT scan was reviewed. Doppler renal arterial ultrasound is pending. ASSESSMENT AND PLAN: 1. Nonoliguric acute kidney injury on top of chronic kidney disease with unknown baseline creatinin e. Etiology of acute kidney injury is multifactorial secondary to hemodynamics, sepsis, NSAID use, possible contrast-associated nephropathy. The patient's renal function appears to be stabilized in the last 24 hours, as patient may be entering maintenance phase of acute tubular necrosis. Repeat u rinalysis, urine electrolytes are pending. At this point, continue current treatment plan, supporti ve care. We will decrease the IV fluids to 75 mL an hour and monitor closely. 2. Chronic kidney disease likely secondary to renovascular hypertension and diabetes. The patient is currently in acute kidney injury as stated above. We will continue current treatment plan. Cont inue disease factor modification and monitor closely. 3. Renal artery stenosis. The patient's CT angio shows possible stenosis right main artery. We wi ll get a right renal arterial Doppler ultrasound to evaluate renal parenchyma and blood flow to righ t renal artery. If patient's renal artery is significantly atrophic, it is unclear if intervention would provide benefit. We would also consider possible vascular evaluation. 4. Mineral bone disorder. Continue to monitor calcium and phosphorus levels. 5. Hypokalemia, replete with potassium chloride. 6. Anemia. Continue to monitor hemoglobin and hematocrit levels. 7. Severe sepsis and cellulitis. Continue current antibiotic regimen. 8. Diabetes. Continue current insulin regimen. 9. History of cervical cancer, status post chemoradiation. 10. Hypomagnesemia. 11. Gastrointestinal and deep venous thrombosis prophylaxis. Dictated By: KANDY JUDD/NICOL Conf#: [id number] DID#: [id number]
[2016-07-10 10:52] LABS: ADD UMIC YES; URINE BILIRUBIN (Dip) NEGATIVE (NEGATIVE); URINE BLOOD (Dip) 2+ (NEGATIVE); URINE COLOR LT. YELLOW (YELLOW); URINE GLUCOSE (Dip) NEGATIVE (NEGATIVE); URINE KETONES (Dip) NEGATIVE (NEGATIVE); URINE LEUKOCYTE ESTERASE (Dip) NEGATIVE (NEGATIVE); URINE NITRITE (Dip) NEGATIVE (NEGATIVE); URINE TOTAL PROTEIN (Dip) 1+ (NEGATIVE); URINE UROBILINOGEN (Dip) 0.2 E.U./dL (0.1-1.0)
--- NOTE | 2016-07-10 11:47 | RADRPT ---
PROCEDURE: US Renal Artery Duplex CLINICAL INDICATION: renal artery stenosis TECHNIQUE: Pulse wave and color duplex Doppler ultrasound of the aorta and the renal arteries was done. COMPARISON: None. FINDINGS: The right kidney measures 9.8 cm in length and the left kidney 10.7 cm in length. Bilaterally, ther e is no evidence of hydronephrosis, cysts, mass or calcifications. Peak systolic velocity within the aorta was 69 cm/sec. The right renal artery is not visualized. Peak systolic velocities within the left renal artery were as follows: Flow in the proximal to mid left renal artery is not visualized. Distal -60 cm/sec Left Renal-Aortic ratio: 0.9 IMPRESSION: Markedly limited study. The right renal artery and flow in the proximal to mid left renal artery are not visualized. Consid er an MRA study for further evaluation of renal artery stenosis. No hydronephrosis bilaterally. RPTAT: EE Physician Gail Date Time Electronically viewed and signed by Physician Gail on 07/10/2016 11:46 /
[2016-07-10] MEDS ORDERED: MAGNESIUM SULFATE 4 GM/100 ML 100 ML IVPB ONE (12:00)
[2016-07-10] MEDS ORDERED: PIPER-TAZO 2.25 GM (PMX) 50 ML IVPB SCH (12:00)
[2016-07-10] MEDS: CEFTRIAXONE 1 GM/50 ML (PMX) 50 ML IVPB SCH (12:29)
--- NOTE | 2016-07-10 13:14 | PN ---
DATE: 07/10/2016 SUBJECTIVE: No acute changes. The patient is alert, feels better. Looks comfortable, no fevers. WBC 12.4, platelets 144, neutrophils 89, bands 8, lymphs 3. BUN 33, creatinine 1.64. ANTIMICROBIALS: 1. Vancomycin. 2. Zosyn. MICROBIOLOGY: Blood culture growing strep. Urine culture growing E. coli. Repeat blood cultures n egative. PHYSICAL EXAMINATION: GENERAL: Obese, well-developed elderly woman who is awake, in no distress. HEENT: Head atraumatic, normocephalic. Sclerae anicteric. Buccal mucosa pink. NECK: Supple, trachea midline. CHEST: Rise symmetrical. Breath sounds clear. HEART: S1, S2. ABDOMEN: Soft, bowel tones present. EXTREMITIES: Left lower extremity decreasing erythema. ASSESSMENT: 1. Resolving sepsis. 2. Streptococcal bacteremia with repeat blood cultures preliminary negative. 3. Urinary tract infection. 4. Left lower extremity acute on chronic cellulitis. 5. History of cervical cancer status post chemoradiation. 6. Diabetes. PLAN: The patient remains stable and overall improving. We are going to change Zosyn to Rocephin, continue vancomycin, continue left lower extremity elevation. Dictated By: MAXIME BLACKWELL GEOPHYSICAL SUPPORT SPECIALIST for SHANTA CURTIS/NICOL Conf#: [id number] DID#: [id number]
--- NOTE | 2016-07-10 17:18 | PN ---
Date/Time of Note Date/Time of Note DATE: 07/10/16 TIME: 17:10 Assessment/Plan VTE Prophylaxis VTE Prophylaxis Intervention: LMWH Lines/Catheters IV Catheter Type (from Nrs): Peripheral IV Assessment/Plan Chief Complaint/Hosp Course 1. Severe sepsis secondary to sepsis from left lower extremity cellulitis as well as UTI Patient has chronic lymphedema in this left lower extremity secondary to previous surgery for cervical cancer Blood culture shows likely strep and 2 out of 2 cultures Urine culture is positive for gram-negative rods Continue broad-spectrum antibiotics with vancomycin and Zosyn ID consultation appreciated 2. History of diabetes-A1c is 8.6 Continue Lantus and sliding scale 3. History of cervical cancer, status post-surgery and chemoradiation in 2011 The patient is no longer on any chemotherapy, no acute issues 4. 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 5. Severe leukopenia secondary to severe sepsis-resolved 6. Acute versus chronic kidney injury likely secondary to ATN from sepsis- creatinine now trending down Creatinine was normal in 2011 Nephrology consultation appreciated Continue IV fluids 7. Chronic ulcer in medial malleolus of right lower extremity likely a venous insufficiency ulcer Vascular consult Wound care consult Prophylaxis- Lovenox Problems: Subjective 24 Hr Interval Summary Constitutional: no complaints Exam/Review of Systems Vital Signs Vitals Vital Signs Date Time Temp Pulse Resp B/P Pulse Ox O2 Delivery O2 Flow Rate FiO2 07/10/16 16:13 79 07/10/16 15:40 98.2 19 118/56 98 07/08/16 16:47 Room Air Intake and Output 07/09/16 07/09/16 07/10/16 15:00 23:00 07:00 Intake Total 580 ml 1325 ml Output Total 500 ml Balance 80 ml 1325 ml Exam Constitutional: alert Respiratory: clear to auscultation Cardiovascular: regular rate and rhythm Gastrointestinal: soft, No distended Musculoskeletal: No nl extremities to inspection Results Result Diagram: 07/10/16 0705 07/10/16 0705 Results 24 hrs Laboratory Tests Test 07/09/16 17:34 07/09/16 20:19 07/10/16 06:45 07/10/16 07:05 Bedside Glucose 115 104 Urine Color LT. YELLOW Urine Clarity CLEAR Urine pH 5.5 Urine Specific [place] 1.025 Urine Ketones NEGATIVE Urine Nitrite NEGATIVE Urine Bilirubin NEGATIVE Urine Urobilinogen 0.2 E.U./dL Urine Leukocyte Esterase NEGATIVE Urine Microscopic RBC 2-5 Urine Microscopic WBC 0-2 Urine Coarse Granular Casts RARE Urine Hemoglobin 2+ H Urine Random Creatinine 57.84 Urine Random Sodium 114 H Urine Glucose NEGATIVE Urine Total Protein 77.0 H White Blood Count 12.4 #H Red Blood Count 3.62 L Hemoglobin 10.3 L Hematocrit 30.9 L Mean Corpuscular Volume 85.4 Mean Corpuscular Hemoglobin 28.5 L Mean Corpuscular Hemoglobin Concent 33.3 Red Cell Distribution Width 13.2 Platelet Count 144 Mean Platelet Volume 11.3 H Neutrophils % 89.0 H Band Neutrophils % 8.0 H Lymphocytes % 3.0 L Monocytes % Eosinophils % Basophils % Nucleated Red Blood Cells % Neutrophils # 11.0 H Lymphocytes # 0.4 L Monocytes # Eosinophils # Basophils # Nucleated Red Blood Cells # Sodium Level 136 Potassium Level 3.4 L Chloride Level 109 Carbon Dioxide Level 20 L Anion Gap 10 # Blood Urea Nitrogen 33 H Creatinine 1.64 H Glucose Level 65 #L Calcium Level 6.9 L Phosphorus Level 3.4 # Magnesium Level 1.4 L Test 07/10/16 08:14 07/10/16 08:33 07/10/16 09:13 07/10/16 12:16 Bedside Glucose 68 L 69 L 111 98 Medications Medications Current Medications Sodium Chloride (NS) 1,000 ml @ 75 mls/hr [id number] IV Last administered on 07/10 15:49; Admin Dose 75 MLS/HR; Start 07/08/16 at 17:04 Ondansetron HCl (Zofran Inj) 4 mg Q6H PRN IV NAUSEA AND/OR VOMITING Last administered on 07/09/16 17:32; Admin Dose 4 MG; Start 07/08/16 at 17:30 Acetaminophen (Tylenol Tab) 650 mg Q6H PRN PO PAIN LEVEL 1-3 OR FEVER Last administered on 07/10/16 12:17; Admin Dose 650 MG; Start 07/08/16 at 17:30 Acetaminophen/ Hydrocodone Bitart ([place] (5/325)) 1 tab Q6H PRN PO MODERATE PAIN LEVEL 4-6; Start 07/08/16 at 17:30 Morphine Sulfate (morphine) 2 mg Q4H PRN IV SEVERE PAIN LEVEL 7-10 Last administered on 5/22/17at 21:30; Admin Dose 2 MG; Start 07/08/16 at 17:30 Docusate Sodium (Colace) 100 mg Q12H PRN PO CONSTIPATION; Start 07/08/16 at 17: 30 Zolpidem Tartrate (Ambien) 5 mg QHS PRN PO SLEEP; Start 07/08/16 at 17:30 Heparin Sodium (Porcine) (Heparin (5000 Units/0.5 ml)) 5,000 unit Q12 SC Last administered on 07/10/16 10:01; Admin Dose 5,000 UNIT; Start 07/08/16 at 21:00 Insulin Glargine (Lantus) 10 unit DAILY@20 SC Last administered on 07/09/16 20 :27; Admin Dose 10 UNIT; Start 07/08/16 at 20:00 Diagnostic Test (Pha) (Accu-Chek) 1 ea 02 XX ; Start 07/09/16 at 02:00 Miscellaneous Information 1 ea NOTE XX ; Start 07/08/16 at 17:30 Glucose (Glutose) 15 gm Q15M PRN PO DECREASED GLUCOSE Last administered on 07/10 08:22; Admin Dose 15 GM; Start 07/08/16 at 17:30 Glucose (Glutose) 22.5 gm Q15M PRN PO DECREASED GLUCOSE; Start 07/08/16 at 17: 30 Dextrose (D50w Syringe) 25 ml Q15M PRN IV DECREASED GLUCOSE; Start 07/08/16 at 17:30 Dextrose (D50w Syringe) 50 ml Q15M PRN IV DECREASED GLUCOSE; Start 07/08/16 at 17:30 Glucagon (Glucagen) 1 mg Q15M PRN IM DECREASED GLUCOSE; Start 07/08/16 at 17:30 Glucose 15 gm 15 gm Q15M PRN BUCCAL DECREASED GLUCOSE; Start 07/08/16 at 17:30 Vancomycin HCl 250 ml @ 125 mls/hr Q48H IVPB ; Start 07/11/16 at 11:00 Ceftriaxone Sodium (Rocephin) 50 ml @ 100 mls/hr Q24H IVPB Last administered on 07/10/16 12:29; Admin Dose 100 MLS/HR; Start 07/10/16 at 12:30 HEDY MAY July 10, 2016 17:18
[2016-07-10] MEDS: ONDANSETRON 4 MG INJ IV PRN (17:26)
[2016-07-10] MEDS: INSULIN GLARGINE [LANtus] 3 ML PEN SC SCH (20:00)
--- NOTE | 2016-07-10 22:17 | CONS ---
DATE OF ADMISSION: 07/08/2016 DATE OF CONSULTATION: 07/09/2016 Dear Doctors: HISTORY OF PRESENT ILLNESS: Ms. Byrd is a 76-year-old female who presents to [facility] secondary to recurrent left lower extremity cellulitis and chronic lymphedema. It seems the patient has had a previous history of cervical cancer, stage II, status post chemoradiation in 2011. The patient further presents with a right lower extremity venous stasis ulcer, which she ment ioned that actually gotten worse since she had gone to [place] and upon her return when it has just g yuniel larger in size. At the moment, the patient denies shortness of breath, chest pain, nausea, vo miting, fever, or chills. The patient does have disabling claudication and has become a little bit limited with left lower extremity recurrent cellulitis and the chronic lymphedema. REVIEW OF SYSTEMS: A 14-point review performed and negative except what is mentioned in the HPI. PAST MEDICAL HISTORY: Entails hypertension, hyperlipidemia, diabetes, cholesterol, cervical cancer stage II status post chemoradiation in 2011, morbidly obese, left lower extremity venous insufficien cy. ALLERGIES: NO KNOWN DRUG ALLERGIES. FAMILY HISTORY: Diabetes and hypertension. SOCIAL HISTORY: Denies tobacco, alcohol, or illicit drug use. PHYSICAL EXAMINATION: GENERAL: Alert and oriented x3, no apparent distress. HEENT: Normocephalic, atraumatic. PERRLA, EOMI. Mucosa moist. NECK: Supple. No carotid bruit. PULMONARY: Clear to auscultation bilaterally. No crackles. CARDIOVASCULAR: S1, S2 present. No murmurs. ABDOMEN: Soft, nontender, nondistended. Bowel sounds positive. Truncal obesity. Some mild abdomi nal tenderness diffusely. EXTREMITIES: Right lower extremity: Palpable femoral pulse, nonpalpable pedal pulse. Motor, sensory intact. Ca p refill 3 to 4 seconds. Presence of lipodermatosclerosis and a medial ulcer with necrotic tissue a t the base. Minimal surrounding erythema. No pus identified. Presence of spider veins. Left lower extremity: Palpable femoral pulse, nonpalpable pedal pulse. Motor and sensory intact. Capillary refill 3 to 4 seconds. There is edema of 4+ that extends from the ankle all the way up to the groin. Tenderness in the calf area. Presence of lipodermatosclerosis and spider veins. ASSESSMENT AND PLAN: 1. Bilateral lower extremity atherosclerosis with intermittent claudication: It seems the patient has a component of infrainguinal atherosclerotic disease. We will plan to obtain noninvasive vascul ar studies to better delineate her vascular status in that regard and the patient not having palpabl e pedal pulses may be concerning as we will plan to try to treat her venous insufficiency with compr ession dressing, would be ideal to have adequate perfusion to the lower leg. 2. Bilateral lower extremity venous insufficiency and right lower extremity venous stasis ulcer (CE AP classification 6): It seems the patient has had a longstanding history of venous insufficiency i n which she has had recurrent right lower extremity medial malleolar venous stasis ulcers. At the [facility], would recommend for the patient to have Aquacel silver or Melgisorb silver applied to every o ther day with 2-layer compression dressings. The patient also has what is likely to be a mixed abdi rial and venous disease, as she has nonpalpable pedal pulses. 3. In regards to her left lower extremity chronic lymphedema, upon evaluating her CT scan of her ab domen and pelvis, it seems that there is a left common iliac compression in which the patient may re quire a venogram to further delineate her venous drainage in the pelvis. The patient also may have vascular sclerosis in her pelvis, as the patient has had previous chemo and radiation in that area. 4. Optimize vascular status (BP meds, diet, nutrition, exercise, sugar control, antiplatelets). 5. Discussed findings, plan and management with the patient and her family at the bedside and they understand. 6. We will consult our wound care management team to apply the 2-layer compression dressings for re lieving her edema. Thank you for allowing us to partake in the care of your patient. Please call with any questions. Dictated By: NAT OROURKE/NICOL Conf#: [id number] DID#: [id number] CC: HEDY MAY MD;*EndCC*
[2016-07-11] VITALS (11 sets, daily range): BP systolic 146–166; BP diastolic 65–72; PULSE 80–84; RESP 18–20
[2016-07-11] MEDS: ACCU-CHEK XX SCH (01:38)
[2016-07-11 07:05] LABS: ADD SCAN DIFF NO
[2016-07-11 07:23] LABS: HEMATOCRIT 32.2 % (37.0-47.0); HEMOGLOBIN 10.8 g/dl (12.0-16.0); MEAN CORPUSCULAR HEMOGLOBIN 28.3 pg (29.0-33.0); MEAN CORPUSCULAR HGB CONC 33.5 g/dl (32.0-37.0); MEAN CORPUSCULAR VOLUME 84.3 fl (82.0-101.0); MEAN PLATELET VOLUME 11.5 fl (7.4-10.4); PLATELET COUNT 162 10^3/UL (140-415); RED BLOOD COUNT 3.82 10^6/ul (4.20-5.40); WHITE BLOOD COUNT 15.4 10^3/ul (4.8-10.8)
[2016-07-11] MEDS: INSULIN ASPART [NOVOLOG] 3 ML PEN SC SCH ×4 (07:49→20:55)
[2016-07-11 07:56] LABS: CALCIUM 7.1 mg/dl (8.4-10.2); CREATININE 1.34 mg/dl (0.44-1.00); MAGNESIUM 2.6 mg/dl (1.7-2.5); PHOSPHORUS 2.3 mg/dl (2.5-4.9); POTASSIUM 3.8 mmol/L (3.5-5.1)
[2016-07-11] MEDS: HEPARIN 5,000 UNIT/0.5 ML VIAL SC SCH ×2 (09:27→21:03)
[2016-07-11] MEDS ORDERED: NEUTRA-PHOS 250 MG PACKET PO ONE (09:30)
--- NOTE | 2016-07-11 09:40 | PN ---
DATE: 07/11/2016 SUBJECTIVE: The patient is stable, no acute events overnight. No hemoptysis, hematemesis, or hemat ochezia. OBJECTIVE: VITAL SIGNS: Blood pressure 152/67, respirations 18, pulse 74, temperature 99.7. HEENT: Head is normocephalic. NECK: Supple. HEART: Regular rate. LUNGS: Show diminished breath sounds at the base. ABDOMEN: Soft, nontender to palpation, no rebound or guarding. EXTREMITIES: Negative for clubbing, cyanosis. Positive erythema. Trace edema. DERMATOLOGIC: No rashes. MUSCULOSKELETAL: No joint effusions. NEUROLOGIC: No change in exam. MEDICATIONS: Reviewed. LABORATORY DATA: Showed sodium 131, potassium ____, chloride 110, BUN 25, creatinine 1.34, calcium 7.1, phosphorus 2.3, magnesium 2.6. White count 15.4, hemoglobin 10.8, hematocrit 32.2, and platele t count is 162. The patient's repeat cultures have been negative. ASSESSMENT AND PLAN: 1. Nonoliguric acute kidney injury on top of chronic kidney disease with unknown baseline creatinin e. Etiology of acute kidney injury is secondary to acute tubular necrosis due to multifactorial corey ologies such as contrast-associated nephropathy and hemodynamic sepsis. The patient's renal functio n stabilized in the last 24 hours. At this point, continue current treatment plan, supportive care, renally dose all meds. Will discontinue IV fluids and monitor. 2. 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 The patient is curre ntly in acute kidney injury as stated above. Renal function has been improving. Continue disease f actor modification, continue to monitor closely. 3. Renal artery stenosis. The patient's CT angio shows possible stenosis, right main artery. [facility] Doppler ultrasounds could not visualize any flow to the right renal artery. At this point, emma wilkins follow up with, vascular surgeon, Dr. Bain for evaluation and consideration of a renal artery stent. We will continue to monitor closely. 4. Mineral bone disorder. The patient is hypophosphatemic. Will repleted with sodium phosphate. 5. Hypokalemia, improved. 6. Anemia. Continue to monitor H and H levels. 7. Severe sepsis, cellulitis. Continue current antibiotic regimen. 8. Peripheral arterial disease with venous insufficiency. Continue medical management and follow u p with vascular surgery's recommendations. 9. Diabetes. Continue Accu-Cheks and insulin sliding scale. 10. History of cervical cancer status post chemoradiation. 11. Gastrointestinal and deep venous thrombosis prophylaxis. 12. Mild hypermagnesemia. Continue to monitor. 13. Hyponatremia, etiology is likely secondary to acute kidney injury causing decreased free water urinary excretion. Continue to monitor and limit free water intake. Dictated By: KANDY SHEN DO NR/NTS Conf#: [id number] DID#: [id number]
[2016-07-11 10:51] LABS: LYMPHOCYTES # 0.8 10^3/ul (0.8-2.9); MONOCYTE # 0.5 10^3/ul (0.3-0.9); NEUTROPHIL # 12.9 10^3/ul (1.6-7.5)
[2016-07-11] MEDS ORDERED: VANCOMYCIN 1 GM in NS 250 ML IVPB SCH (11:00)
--- NOTE | 2016-07-11 11:49 | RADRPT ---
PROCEDURE: US Lower extremity arterial. CLINICAL INDICATION: peripheral arterial disease, claudication, leg pain TECHNIQUE: Multiple sonographic images of the bilateral lower extremity arteries were obtained uti lizing grayscale, color-flow and doppler imaging. The images were reviewed on a PACS workstation. COMPARISON: None. FINDINGS: There is no significant calcific plaque. Velocities and waveforms were obtained as described below. RIGHT LEG: Right common femoral artery: 114 cm/s; triphasic waveforms Right profunda femoral artery: 103 cm/s; triphasic waveforms Right proximal superficial femoral artery: 126 cm/s; triphasic waveforms Right mid superficial femoral artery: 92.5 cm/s; triphasic waveforms Right distal superficial femoral artery: 104.3 cm/s; triphasic waveforms Right popliteal artery: 63 cm/s; biphasic waveforms Right posterior tibial artery: 66 cm/s; biphasic waveforms Right dorsalis pedis artery: 20 cm/s; biphasic and dampened waveforms Right JOCY: 1.0 LEFT LEG: Left common femoral artery: 145 cm/s; triphasic waveforms Left profunda femoral artery: 128 cm/s; triphasic waveforms Left proximal superficial femoral artery: 137 cm/s; triphasic waveforms Left mid superficial femoral artery: 120 cm/s; biphasic waveforms Left distal superficial femoral artery: 35 cm/s; monophasic and dampened waveforms Left popliteal artery: 95 cm/s; monophasic waveforms Left posterior tibial artery: 65 cm/s; monophasic waveforms Left dorsalis pedis artery: 29 cm/s; monophasic waveforms Left JOCY: 0.9 RPTAT: AA IMPRESSION: Elevated velocities from the left common femoral artery to the mid superficial femoral artery with d ecreased velocities and dampened 24 to the distal left superficial femoral artery consistent with a high-grade stenosis in the mid to distal left superficial femoral artery. Consider a CTA runoff stud y for further evaluation. Non hemodynamically significant multifocal narrowing within the right lower extremity arteries. Physician Gail Date Time Electronically viewed and signed by Physician Gail on 07/11/2016 11:49 /
[2016-07-11] MEDS: CEFTRIAXONE 1 GM/50 ML (PMX) 50 ML IVPB SCH (12:17)
--- NOTE | 2016-07-11 14:20 | CONS ---
Date/Time of Note Date/Time of Note DATE: 07/11/16 TIME: 14:17 Assessment/Plan Assessment/Plan Chief Complaint/Hosp Course SUBJECTIVE: No acute changes. The patient is alert, looks comfortable, no fevers. ANTIMICROBIALS: 1. Vancomycin. 2. Rocephin. MICROBIOLOGY: Blood culture growing strep. Urine culture growing E. coli. Repeat blood cultures negative. PHYSICAL EXAMINATION: GENERAL: Obese, well-developed elderly woman who is awake, in no distress. HEENT: Head atraumatic, normocephalic. Sclerae anicteric. Buccal mucosa pink. NECK: Supple, trachea midline. CHEST: Rise symmetrical. Breath sounds clear. HEART: S1, S2. ABDOMEN: Soft, bowel tones present. EXTREMITIES: Left lower extremity + swelling/erythema. ASSESSMENT: 1. Sepsis. 2. Streptococcal bacteremia with repeat blood cultures preliminary negative. 3. Urinary tract infection. 4. Left lower extremity acute on chronic cellulitis. 5. History of cervical cancer status post chemoradiation. 6. Diabetes. 7. PAD==> with a high-grade stenosis in the mid to distal left superficial femoral artery per arterial study PLAN: The patient remains stable, continue abx, left lower extremity elevation , f/u vascular rec-s. DW pt/staff Problems: Consultation Date/Type/Reason Admit Date/Time July 08, 2016 at 13:27 Initial Consult Date Type of Consultation: ID Exam/Review of Systems Vital Signs Vitals Vital Signs Date Time Temp Pulse Resp B/P Pulse Ox O2 Delivery O2 Flow Rate FiO2 07/11/16 12:00 81 07/11/16 11:19 99.0 20 161/72 98 07/08/16 16:47 Room Air Intake and Output 07/10/16 07/10/16 07/11/16 15:00 23:00 07:00 Intake Total 400 ml 1300 ml Output Total 700 ml 1500 ml Balance -300 ml -200 ml Results Result Diagram: 07/11/16 0630 07/11/16 0630 Results 24 hrs Laboratory Tests Test 07/10/16 17:22 07/10/16 20:16 07/11/16 06:30 07/11/16 07:47 Bedside Glucose 122 97 121 White Blood Count 15.4 #H Red Blood Count 3.82 L Hemoglobin 10.8 L Hematocrit 32.2 L Mean Corpuscular Volume 84.3 Mean Corpuscular Hemoglobin 28.3 L Mean Corpuscular Hemoglobin Concent 33.5 Red Cell Distribution Width 13.0 Platelet Count 162 Mean Platelet Volume 11.5 H Neutrophils % 84.0 H Band Neutrophils % 8.0 H Lymphocytes % 5.0 L Monocytes % 3.0 Eosinophils % Neutrophils # 12.9 H Lymphocytes # 0.8 Monocytes # 0.5 Eosinophils # Sodium Level 131 L Potassium Level 3.8 Chloride Level 110 Carbon Dioxide Level 18 L Anion Gap 7 L Blood Urea Nitrogen 25 H Creatinine 1.34 H Glucose Level 116 # Calcium Level 7.1 L Phosphorus Level 2.3 #L Magnesium Level 2.6 #H Test 07/11/16 12:16 Bedside Glucose 183 Medications Medications Current Medications Ondansetron HCl (Zofran Inj) 4 mg Q6H PRN IV NAUSEA AND/OR VOMITING Last administered on 07/10/16 17:26; Admin Dose 4 MG; Start 07/08/16 at 17:30 Acetaminophen (Tylenol Tab) 650 mg Q6H PRN PO PAIN LEVEL 1-3 OR FEVER Last administered on 07/10/16 12:17; Admin Dose 650 MG; Start 07/08/16 at 17:30 Acetaminophen/ Hydrocodone Bitart (Sigel (5/325)) 1 tab Q6H PRN PO MODERATE PAIN LEVEL 4-6; Start 07/08/16 at 17:30 Morphine Sulfate (morphine) 2 mg Q4H PRN IV SEVERE PAIN LEVEL 7-10 Last administered on 07/08/16 21:30; Admin Dose 2 MG; Start 07/08/16 at 17:30 Docusate Sodium (Colace) 100 mg Q12H PRN PO CONSTIPATION; Start 07/08/16 at 17: 30 Zolpidem Tartrate (Ambien) 5 mg QHS PRN PO SLEEP; Start 07/08/16 at 17:30 Heparin Sodium (Porcine) (Heparin (5000 Units/0.5 ml)) 5,000 unit Q12 SC Last administered on 07/11/16 09:27; Admin Dose 5,000 UNIT; Start 07/08/16 at 21:00 Insulin Glargine (Lantus) 10 unit DAILY@20 SC Last administered on 07/09/16 20 :27; Admin Dose 10 UNIT; Start 07/08/16 at 20:00 Diagnostic Test (Pha) (Accu-Chek) 1 ea 02 XX ; Start 07/09/16 at 02:00 Miscellaneous Information 1 ea NOTE XX ; Start 07/08/16 at 17:30 Glucose (Glutose) 15 gm Q15M PRN PO DECREASED GLUCOSE Last administered on 07/10 08:22; Admin Dose 15 GM; Start 07/08/16 at 17:30 Glucose (Glutose) 22.5 gm Q15M PRN PO DECREASED GLUCOSE; Start 07/08/16 at 17: 30 Dextrose (D50w Syringe) 25 ml Q15M PRN IV DECREASED GLUCOSE; Start 07/08/16 at 17:30 Dextrose (D50w Syringe) 50 ml Q15M PRN IV DECREASED GLUCOSE; Start 07/08/16 at 17:30 Glucagon (Glucagen) 1 mg Q15M PRN IM DECREASED GLUCOSE; Start 07/08/16 at 17:30 Glucose 15 gm 15 gm Q15M PRN BUCCAL DECREASED GLUCOSE; Start 07/08/16 at 17:30 Vancomycin HCl 250 ml @ 125 mls/hr Q48H IVPB Last administered on 07/11/16 10 :35; Admin Dose 125 MLS/HR; Start 07/11/16 at 11:00 Ceftriaxone Sodium (Rocephin) 50 ml @ 100 mls/hr Q24H IVPB Last administered on 07/11/16 12:17; Admin Dose 100 MLS/HR; Start 07/10/16 at 12:30 MAXIME BLACKWELL NP July 11, 2016 14:20
[2016-07-11 14:32] LABS: MICROALBUMIN 2.8 mg/dL
[2016-07-11] MEDS ORDERED: PENDING SANTYL ORDER FOR WOUND CARE XX PRN (15:00)
[2016-07-11] MEDS ORDERED: COLLAGENASE 30 GM TUBE TOP PRN (15:30)
--- NOTE | 2016-07-11 15:31 | PN ---
Date/Time of Note Date/Time of Note DATE: 07/11/16 TIME: 15:25 Assessment/Plan VTE Prophylaxis VTE Prophylaxis Intervention: LMWH Lines/Catheters IV Catheter Type (from Nrs): Peripheral IV Assessment/Plan Chief Complaint/Hosp Course 1. Severe sepsis secondary to sepsis from left lower extremity cellulitis as well as UTI Patient has chronic lymphedema in this left lower extremity secondary to previous surgery for cervical cancer Blood culture shows strep in 2 out of 2 cultures, repeat blood cultures are now negative Urine culture is positive for E. coli Continue vancomycin and Rocephin ID following 2. History of diabetes-A1c is 8.6 Continue Lantus and sliding scale 3. History of cervical cancer, status post-surgery and chemoradiation in 2012 The patient is no longer on any chemotherapy, no acute issues 4. 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 5. Severe leukopenia secondary to severe sepsis-resolved 6. Acute versus chronic kidney injury likely secondary to ATN from sepsis- creatinine now trending down Creatinine was normal in 2011 Nephrology consultation appreciated Continue IV fluids 7. Chronic ulcer in medial malleolus of right lower extremity secondary to a venous insufficiency ulcer with likely peripheral vascular disease Vascular consult appreciated, workup in progress Wound care consult Prophylaxis- Lovenox Problems: Subjective 24 Hr Interval Summary Musculoskeletal: other (Pain in the left lower extremity) Exam/Review of Systems Vital Signs Vitals Vital Signs Date Time Temp Pulse Resp B/P Pulse Ox O2 Delivery O2 Flow Rate FiO2 07/11/16 12:00 81 07/11/16 11:19 99.0 20 161/72 98 07/08/16 16:47 Room Air Intake and Output 07/10/16 07/10/16 07/11/16 15:00 23:00 07:00 Intake Total 400 ml 1300 ml Output Total 700 ml 1500 ml Balance -300 ml -200 ml Exam Constitutional: alert Respiratory: clear to auscultation Cardiovascular: regular rate and rhythm Gastrointestinal: soft, No distended Musculoskeletal: No nl extremities to inspection Results Result Diagram: 07/11/16 0630 07/11/16 0630 Results 24 hrs Laboratory Tests Test 07/10/16 17:22 07/10/16 20:16 07/11/16 06:30 07/11/16 07:47 Bedside Glucose 122 97 121 White Blood Count 15.4 #H Red Blood Count 3.82 L Hemoglobin 10.8 L Hematocrit 32.2 L Mean Corpuscular Volume 84.3 Mean Corpuscular Hemoglobin 28.3 L Mean Corpuscular Hemoglobin Concent 33.5 Red Cell Distribution Width 13.0 Platelet Count 162 Mean Platelet Volume 11.5 H Neutrophils % 84.0 H Band Neutrophils % 8.0 H Lymphocytes % 5.0 L Monocytes % 3.0 Eosinophils % Neutrophils # 12.9 H Lymphocytes # 0.8 Monocytes # 0.5 Eosinophils # Sodium Level 131 L Potassium Level 3.8 Chloride Level 110 Carbon Dioxide Level 18 L Anion Gap 7 L Blood Urea Nitrogen 25 H Creatinine 1.34 H Glucose Level 116 # Calcium Level 7.1 L Phosphorus Level 2.3 #L Magnesium Level 2.6 #H Test 07/11/16 12:16 Bedside Glucose 183 Medications Medications Current Medications Ondansetron HCl (Zofran Inj) 4 mg Q6H PRN IV NAUSEA AND/OR VOMITING Last administered on 07/10/16 17:26; Admin Dose 4 MG; Start 07/08/16 at 17:30 Acetaminophen (Tylenol Tab) 650 mg Q6H PRN PO PAIN LEVEL 1-3 OR FEVER Last administered on 07/10/16 12:17; Admin Dose 650 MG; Start 07/08/16 at 17:30 Acetaminophen/ Hydrocodone Bitart (Barre (5/325)) 1 tab Q6H PRN PO MODERATE PAIN LEVEL 4-6; Start 07/08/16 at 17:30 Morphine Sulfate (morphine) 2 mg Q4H PRN IV SEVERE PAIN LEVEL 7-10 Last administered on 07/08/16 21:30; Admin Dose 2 MG; Start 07/08/16 at 17:30 Docusate Sodium (Colace) 100 mg Q12H PRN PO CONSTIPATION; Start 07/08/16 at 17: 30 Zolpidem Tartrate (Ambien) 5 mg QHS PRN PO SLEEP; Start 07/08/16 at 17:30 Heparin Sodium (Porcine) (Heparin (5000 Units/0.5 ml)) 5,000 unit Q12 SC Last administered on 07/11/16 09:27; Admin Dose 5,000 UNIT; Start 07/08/16 at 21:00 Insulin Glargine (Lantus) 10 unit DAILY@20 SC Last administered on 07/09/16 20 :27; Admin Dose 10 UNIT; Start 07/08/16 at 20:00 Diagnostic Test (Pha) (Accu-Chek) 1 ea 02 XX ; Start 07/09/16 at 02:00 Miscellaneous Information 1 ea NOTE XX ; Start 07/08/16 at 17:30 Glucose (Glutose) 15 gm Q15M PRN PO DECREASED GLUCOSE Last administered on 07/10 08:22; Admin Dose 15 GM; Start 07/08/16 at 17:30 Glucose (Glutose) 22.5 gm Q15M PRN PO DECREASED GLUCOSE; Start 07/08/16 at 17: 30 Dextrose (D50w Syringe) 25 ml Q15M PRN IV DECREASED GLUCOSE; Start 07/08/16 at 17:30 Dextrose (D50w Syringe) 50 ml Q15M PRN IV DECREASED GLUCOSE; Start 07/08/16 at 17:30 Glucagon (Glucagen) 1 mg Q15M PRN IM DECREASED GLUCOSE; Start 07/08/16 at 17:30 Glucose 15 gm 15 gm Q15M PRN BUCCAL DECREASED GLUCOSE; Start 07/08/16 at 17:30 Vancomycin HCl 250 ml @ 125 mls/hr Q48H IVPB Last administered on 07/11/16 10 :35; Admin Dose 125 MLS/HR; Start 07/11/16 at 11:00 Ceftriaxone Sodium (Rocephin) 50 ml @ 100 mls/hr Q24H IVPB Last administered on 07/11/16 12:17; Admin Dose 100 MLS/HR; Start 07/10/16 at 12:30 Miscellaneous Information [facility] This patient knox... PRN PRN XX WOUND CARE; Start 07/11/16 at 15:00 HEDY MAY July 11, 2016 15:31
[2016-07-11] MEDS: INSULIN GLARGINE [LANtus] 3 ML PEN SC SCH (21:02)
[2016-07-12] VITALS (13 sets, daily range): BP systolic 133–168; BP diastolic 61–74; PULSE 73–81; RESP 16–20
--- NOTE | 2016-07-12 | PN ---
Date/Time of Note Date/Time of Note DATE: 07/12/16 TIME: 00:00 Assessment/Plan Lines/Catheters IV Catheter Type (from [facility]): Saline Lock Angulo in Place (from [facility]): Yes Assessment/Plan Chief Complaint/Hosp Course -Bilateral lower extremity atherosclerosis with intermittent claudication: It seems the patient has a component of infrainguinal atherosclerotic disease. Likely a component of mixed disease involving venous insufficiency. The noninvasive vascular studies demonstrated LLE infrainguinal disease. Will await improvement of her infection and her renal patient -Bilateral lower extremity venous insufficiency and right lower extremity venous stasis ulcer (CEAP classification 6): It seems the patient has had a longstanding history of venous insufficiency in which she has recurrent of the right lower extremity medial malleolar venous stasis ulcers. -Recommend Aquacel silver or Melgisorb silver applied to wound every other day with 2-layer compression dressings. The patient also has what is likely to be a mixed arterial and venous disease, as she has nonpalpable pedal pulses. -In regards to her left lower extremity she has chronic lymphedema, her CT scan of her abdomen and pelvis, it seems that there is a left common iliac compression in which the patient may require a venogram to further delineate her venous drainage in the pelvis. The patient also may have vascular sclerosis in her pelvis, as the patient has had previous chemo and radiation in that area.will schedule as an outpatient - -Optimize vascular status (BP meds, diet, nutrition, exercise, sugar control, antiplatelets). -Discussed findings, plan and management with the patient and her family at the bedside and they understand. -We will consult our wound care management team to apply the 2-layer compression dressings for relieving her edema. -Thank you for allowing us to partake in the care of your patient. Please call with any questions. Problems: Exam/Review of Systems Vital Signs Vitals Vital Signs Date Time Temp Pulse Resp B/P Pulse Ox O2 Delivery O2 Flow Rate FiO2 07/12/16 00:15 98.0 79 20 133/61 96 07/08/16 16:47 Room Air Intake and Output 07/11/16 07/11/16 07/12/16 15:00 23:00 07:00 Intake Total 1250 ml Output Total 950 ml Balance 300 ml Exam Free Text/Dictation GENERAL: Alert and oriented x3, PULMONARY: Clear to auscultation bilaterally. CARDIOVASCULAR: S1, S2 present. ABDOMEN: Soft, nontender, nondistended. Bowel sounds positive. Truncal obesity. Some mild abdominal tenderness diffusely. EXTREMITIES: Right lower extremity: Palpable femoral pulse, nonpalpable pedal pulse. Motor , sensory intact. Cap refill 3 to 4 seconds. Presence of lipodermatosclerosis and a medial ulcer with necrotic tissue at the base. Minimal surrounding erythema - improving , spider veins. Left lower extremity: Palpable femoral pulse, nonpalpable pedal pulse. Motor and sensory intact. Capillary refill 3 to 4 seconds. There is edema of 4+ that extends from the ankle all the way up to the groin. Tenderness in the calf area-improving. Presence of lipodermatosclerosis and spider veins. Results Result Diagram: 07/11/1630 07/11/1630 NAT GARCIA MD July 12, 2016 00:00
[2016-07-12] MEDS: ACCU-CHEK XX SCH (02:00)
[2016-07-12 06:38] LABS: ADD SCAN DIFF NO
[2016-07-12 06:43] LABS: BASOPHILS % 0.2 % (0.0-2.0); EOSINOPHILS # 0.3 10^3/ul (0.0-0.5); EOSINOPHILS % 2.6 % (0.0-7.0); HEMATOCRIT 30.3 % (37.0-47.0); HEMOGLOBIN 10.3 g/dl (12.0-16.0); LYMPHOCYTES % 10.2 % (15.0-51.0); MEAN CORPUSCULAR HEMOGLOBIN 28.3 pg (29.0-33.0); MEAN CORPUSCULAR VOLUME 83.2 fl (82.0-101.0); MEAN PLATELET VOLUME 10.7 fl (7.4-10.4); MONOCYTE # 0.8 10^3/ul (0.3-0.9); MONOCYTES % 8.2 % (0.0-11.0); NEUTROPHIL # 7.4 10^3/ul (1.6-7.5); NEUTROPHILS % 76.3 % (39.0-77.0); NUCLEATED RED BLOOD CELLS% 0.2 /100WBC (0.0-0.0); PLATELET COUNT 166 10^3/UL (140-415); RED BLOOD COUNT 3.64 10^6/ul (4.20-5.40); WHITE BLOOD COUNT 9.7 10^3/ul (4.8-10.8)
[2016-07-12 07:09] LABS: CALCIUM 7.6 mg/dl (8.4-10.2); CREATININE 1.37 mg/dl (0.44-1.00); MAGNESIUM 2.5 mg/dl (1.7-2.5); PHOSPHORUS 2.4 mg/dl (2.5-4.9); POTASSIUM 3.4 mmol/L (3.5-5.1)
[2016-07-12] MEDS: INSULIN ASPART [NOVOLOG] 3 ML PEN SC SCH ×4 (07:44→21:00)
[2016-07-12] MEDS ORDERED: POTASSIUM CHLORIDE (SR) 20 MEQ TAB PO STA (08:06)
[2016-07-12] MEDS: COLLAGENASE 30 GM TUBE TOP SCH (08:20)
[2016-07-12] MEDS: HEPARIN 5,000 UNIT/0.5 ML VIAL SC SCH ×2 (08:21→22:05)
--- NOTE | 2016-07-12 08:38 | PN ---
DATE: 07/12/2016 SUBJECTIVE: The patient is stable, no acute events overnight. No fever, chills, nausea or vomiting. VITAL SIGNS: Blood pressure 140/62, respiratory rate 20, pulse 77, temperature 99.6. HEENT: Head is normocephalic. NECK: Supple. HEART: Regular rate. LUNGS: Show diminished breath sounds at the base. ABDOMEN: Soft, nontender to palpation without rebound or guarding. EXTREMITIES: Negative for clubbing, cyanosis, positive erythema, trace edema. DERMATOLOGIC: No rashes. MUSCULOSKELETAL: No joint effusions. NEUROLOGIC: No change in exam. MEDICATIONS: The patient's medications have been reviewed. LABORATORY DATA: Shows a white count of 9.7, hemoglobin 10.3, hematocrit 30.3, platelet count is 16 6. Sodium 131, potassium 3.4, BUN 21, creatinine 1.37, phosphorus 2.4. ASSESSMENT AND PLAN: 1. Nonoliguric acute kidney injury on top of chronic kidney disease with unknown baseline creatinin e. Etiology secondary to acute tubular necrosis due to contrast-induced nephropathy, hemodynamics. The patient's renal function is stabilized in the last 24 hours. The patient appears to be on maint enance phase of acute tubular necrosis. At this point, continue current treatment plan, supportive care, renally dose all meds. 2. 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 The patient's curre ntly acute kidney as stated above. Renal function has been improving. Continue disease factor dorothy fications, continue to monitor closely. 3. Renal artery stenosis. The patient's CT angio shows possible stenosis. Arterial Doppler ultras ound was unable to visualize renal artery. The patient was evaluated by Dr. Bain. Plan at thi s point would be to continue medical management of underlying hypertension. We will follow up with vascular surgery for recommendations. 4. Mineral bone disorder. Continue patient's hyperphosphatemia. We will replete with sodium phosp hate. 5. Hypokalemia, replete with potassium chloride. 6. Hyponatremia, etiology secondary to acute kidney injury causing decreased free water urinary exc retion. Continue to monitor and limit free water intake. 7. Anemia. Continue to monitor hemoglobin and hematocrit levels. 8. Severe sepsis, cellulitis. Continue current antibiotic regimen. 9. Peripheral vascular disease, venous insufficiency. Continue to monitor. Continue medical manag ement. 10. Diabetes. Continue current insulin regimen. 11. History of cervical cancer status post chemoradiation. 12. GI and deep vein thrombosis prophylaxis. 13. Mild hypomagnesemia. Continue to monitor. Dictated By: KANDY JUDD/NICOL Conf#: [id number] DID#: [id number]
[2016-07-12] MEDS ORDERED: NEUTRA-PHOS 250 MG PACKET PO ONE (09:00)
[2016-07-12] MEDS ORDERED: LIDOCAINE 1% (MPF) 5 ML VIAL SC ONE ×3 (12:30→19:00)
[2016-07-12] MEDS: CEFTRIAXONE 1 GM/50 ML (PMX) 50 ML IVPB SCH (12:32)
--- NOTE | 2016-07-12 13:57 | PN ---
Date/Time of Note Date/Time of Note DATE: 07/12/16 TIME: 13:54 Assessment/Plan Lines/Catheters IV Catheter Type (from [facility]): Saline Lock Angulo in Place (from [facility]): Yes Assessment/Plan Chief Complaint/Hosp Course -Bilateral lower extremity atherosclerosis with intermittent claudication: It seems the patient has a component of infrainguinal atherosclerotic disease. Likely a component of mixed disease involving venous insufficiency. The noninvasive vascular studies demonstrated LLE infrainguinal disease. Will await improvement of her infection and her renal function prior to an angiogram (this can also be done as an outpatient) -Bilateral lower extremity venous insufficiency and right lower extremity venous stasis ulcer (CEAP classification 6): It seems the patient has had a longstanding history of venous insufficiency in which she has recurrent of the right lower extremity medial malleolar venous stasis ulcers. Consult our wound care management team to apply the 2-layer compression dressings. -Recommend Aquacel silver or Melgisorb silver applied to wound every other day with 2-layer compression dressings. The patient also has what is likely to be a mixed arterial and venous disease, as she has nonpalpable pedal pulses. -In regards to her left lower extremity she has chronic lymphedema, her CT scan of her abdomen and pelvis, it seems that there is a left common iliac compression in which the patient may require a venogram to further delineate her venous drainage in the pelvis. The patient also may have vascular sclerosis in her pelvis, as the patient has had previous chemo and radiation in that area.will schedule as an outpatient -Optimize vascular status (BP meds, diet, nutrition, exercise, sugar control, antiplatelets). -Discussed findings, plan and management with the patient and her family at the bedside and they understand. -Thank you for allowing us to partake in the care of your patient. Please call with any questions. Problems: Subjective 24 Hr Interval Summary no new vascular events overnight Exam/Review of Systems Vital Signs Vitals Vital Signs Date Time Temp Pulse Resp B/P Pulse Ox O2 Delivery O2 Flow Rate FiO2 07/12/16 12:03 77 07/12/16 11:30 99.6 20 145/68 98 07/08/16 16:47 Room Air Intake and Output 07/11/16 07/11/16 07/12/16 15:00 23:00 07:00 Intake Total 1250 ml 400 ml Output Total 950 ml 800 ml Balance 300 ml -400 ml Exam Free Text/Dictation GENERAL: Alert and oriented x3, PULMONARY: Clear to auscultation bilaterally. CARDIOVASCULAR: S1, S2 present. ABDOMEN: Soft, nontender, nondistended. Bowel sounds positive. Truncal obesity. Some mild abdominal tenderness diffusely. EXTREMITIES: Right lower extremity: Palpable femoral pulse, nonpalpable pedal pulse. Motor , sensory intact. Cap refill 3 to 4 seconds. Lipodermatosclerosis, medial ulcer with necrotic tissue at the base. Minimal surrounding erythema - improving , spider veins. Left lower extremity: Palpable femoral pulse, nonpalpable pedal pulse. Motor and sensory intact. Capillary refill 3 to 4 seconds. Edema of 4+ that extends from the ankle all the way up to the groin. Tenderness in the calf area- improving. Lipodermatosclerosis and spider veins. Results Result Diagram: 07/12/16 0630 07/12/16 0602 NAT GARCIA MD July 12, 2016 13:57
--- NOTE | 2016-07-12 14:41 | CONS ---
Date/Time of Note Date/Time of Note DATE: 07/12/16 TIME: 14:40 Assessment/Plan Assessment/Plan Chief Complaint/Hosp Course SUBJECTIVE: No acute changes. The patient is alert, looks comfortable, no fevers. ANTIMICROBIALS: 1. Vancomycin. 2. Rocephin. MICROBIOLOGY: Blood culture growing strep. Urine culture growing E. coli. Repeat blood cultures negative. PHYSICAL EXAMINATION: GENERAL: Obese, well-developed elderly woman who is awake, in no distress. HEENT: Head atraumatic, normocephalic. Sclerae anicteric. Buccal mucosa pink. NECK: Supple, trachea midline. CHEST: Rise symmetrical. Breath sounds clear. HEART: S1, S2. ABDOMEN: Soft, bowel tones present. EXTREMITIES: Left lower extremity=> decreased swelling/erythema. ASSESSMENT: 1. Sepsis==> resolving. 2. Streptococcal bacteremia with repeat blood cultures preliminary negative. 3. Urinary tract infection. 4. Left lower extremity acute on chronic cellulitis. 5. History of cervical cancer status post chemoradiation. 6. Diabetes. 7. PAD==> with a high-grade stenosis in the mid to distal left superficial femoral artery per arterial study PLAN: The patient remains stable, wbc decreasing, continue abx, left lower extremity elevation, f/u vascular rec-s. Consider PICC DW pt/staff Problems: Consultation Date/Type/Reason Admit Date/Time July 08, 2016 at 13:27 Type of Consultation: ID Exam/Review of Systems Vital Signs Vitals Vital Signs Date Time Temp Pulse Resp B/P Pulse Ox O2 Delivery O2 Flow Rate FiO2 07/12/16 12:03 77 07/12/16 11:30 99.6 20 145/68 98 07/08/16 16:47 Room Air Intake and Output 07/11/16 07/11/16 07/12/16 15:00 23:00 07:00 Intake Total 1250 ml 400 ml Output Total 950 ml 800 ml Balance 300 ml -400 ml Results Result Diagram: 07/12/16 0630 07/12/16 0602 Results 24 hrs Laboratory Tests Test 07/11/16 17:24 07/11/16 20:52 07/12/16 02:34 07/12/16 06:02 Bedside Glucose 115 115 127 Sodium Level 131 L Potassium Level 3.4 L Chloride Level 108 Carbon Dioxide Level 22 Anion Gap 4 L Blood Urea Nitrogen 21 H Creatinine 1.37 H Glucose Level 89 Calcium Level 7.6 L Phosphorus Level 2.4 L Magnesium Level 2.5 Test 07/12/16 06:30 07/12/16 07:43 07/12/16 12:29 White Blood Count 9.7 # Red Blood Count 3.64 L Hemoglobin 10.3 L Hematocrit 30.3 L Mean Corpuscular Volume 83.2 Mean Corpuscular Hemoglobin 28.3 L Mean Corpuscular Hemoglobin Concent 34.0 Red Cell Distribution Width 13.0 Platelet Count 166 Mean Platelet Volume 10.7 H Neutrophils % 76.3 Lymphocytes % 10.2 L Monocytes % 8.2 Eosinophils % 2.6 Basophils % 0.2 Nucleated Red Blood Cells % 0.2 H Neutrophils # 7.4 Lymphocytes # 1.0 Monocytes # 0.8 Eosinophils # 0.3 Basophils # 0.0 Nucleated Red Blood Cells # 0.0 Bedside Glucose 90 169 Medications Medications Current Medications Ondansetron HCl (Zofran Inj) 4 mg Q6H PRN IV NAUSEA AND/OR VOMITING Last administered on 07/10/16 17:26; Admin Dose 4 MG; Start 07/08/16 at 17:30 Acetaminophen (Tylenol Tab) 650 mg Q6H PRN PO PAIN LEVEL 1-3 OR FEVER Last administered on 07/10/16 12:17; Admin Dose 650 MG; Start 07/08/16 at 17:30 Acetaminophen/ Hydrocodone Bitart ([place] (5/325)) 1 tab Q6H PRN PO MODERATE PAIN LEVEL 4-6; Start 07/08/16 at 17:30 Morphine Sulfate (morphine) 2 mg Q4H PRN IV SEVERE PAIN LEVEL 7-10 Last administered on 07/08/16 21:30; Admin Dose 2 MG; Start 07/08/16 at 17:30 Docusate Sodium (Colace) 100 mg Q12H PRN PO CONSTIPATION; Start 07/08/16 at 17: 30 Zolpidem Tartrate (Ambien) 5 mg QHS PRN PO SLEEP; Start 07/08/16 at 17:30 Heparin Sodium (Porcine) (Heparin (5000 Units/0.5 ml)) 5,000 unit Q12 SC Last administered on 07/12/16 08:21; Admin Dose 5,000 UNIT; Start 07/08/16 at 21:00 Insulin Glargine (Lantus) 10 unit DAILY@20 SC Last administered on 07/11/16 21 :02; Admin Dose 10 UNIT; Start 07/08/16 at 20:00 Diagnostic Test (Pha) (Accu-Chek) 1 ea 02 XX ; Start 07/09/16 at 02:00 Miscellaneous Information 1 ea NOTE XX ; Start 07/08/16 at 17:30 Glucose (Glutose) 15 gm Q15M PRN PO DECREASED GLUCOSE Last administered on 07/10 08:22; Admin Dose 15 GM; Start 07/08/16 at 17:30 Glucose (Glutose) 22.5 gm Q15M PRN PO DECREASED GLUCOSE; Start 07/08/16 at 17: 30 Dextrose (D50w Syringe) 25 ml Q15M PRN IV DECREASED GLUCOSE; Start 07/08/16 at 17:30 Dextrose (D50w Syringe) 50 ml Q15M PRN IV DECREASED GLUCOSE; Start 07/08/16 at 17:30 Glucagon (Glucagen) 1 mg Q15M PRN IM DECREASED GLUCOSE; Start 07/08/16 at 17:30 Glucose 15 gm 15 gm Q15M PRN BUCCAL DECREASED GLUCOSE; Start 07/08/16 at 17:30 Vancomycin HCl 250 ml @ 125 mls/hr Q48H IVPB Last administered on 07/11/16 10 :35; Admin Dose 125 MLS/HR; Start 07/11/16 at 11:00 Ceftriaxone Sodium (Rocephin) 50 ml @ 100 mls/hr Q24H IVPB Last administered on 07/12/16 12:32; Admin Dose 100 MLS/HR; Start 07/10/16 at 12:30 Collagenase (Santyl) 1 applic DAILY TOP Last administered on 07/12/16 08:20; Admin Dose 1 APPLIC; Start 07/12/16 at 09:00 Collagenase (Santyl) 1 applic PRN PRN TOP WOUND CARE; Start 07/11/16 at 15:30 Miscellaneous Information (*Rx Drug Level Order Reminder*) 1 ONCE ONCE XX ; Start 07/13/16 at 10:00; Stop 07/13/16 at 10:01 MAXIME BLACKWELL NP July 12, 2016 14:41
--- NOTE | 2016-07-12 16:42 | PN ---
Date/Time of Note Date/Time of Note DATE: 07/12/16 TIME: 16:40 Assessment/Plan VTE Prophylaxis VTE Prophylaxis Intervention: LMWH Lines/Catheters [facility] Saline Lock Assessment/Plan Chief Complaint/Hosp Course 1. Severe sepsis secondary to sepsis from left lower extremity cellulitis as well as UTI Patient has chronic lymphedema in this left lower extremity secondary to previous surgery for cervical cancer Blood culture shows strep in 2 out of 2 cultures, repeat blood cultures are now negative Urine culture is positive for E. coli Continue vancomycin and Rocephin until July 21, PICC line to be placed the patient to continue antibiotics via home health ID following 2. History of diabetes-A1c is 8.6 Continue Lantus and sliding scale 3. History of cervical cancer, status post-surgery and chemoradiation in 2011 The patient is no longer on any chemotherapy, no acute issues 4. 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 5. Severe leukopenia secondary to severe sepsis-resolved 6. Acute versus chronic kidney injury likely secondary to ATN from sepsis- creatinine now trending down Creatinine was normal in 2011 Nephrology consultation appreciated Continue IV fluids 7. Chronic ulcer in medial malleolus of right lower extremity secondary to a venous insufficiency ulcer with likely peripheral vascular disease Vascular consult appreciated, patient will require to follow-up with vascular surgery as an outpatient for further workup Wound care consult Prophylaxis- Lovenox Discharge planning: Anticipate DC tomorrow once PICC line placed and antibiotics have been arranged Problems: Subjective 24 Hr Interval Summary Constitutional: no complaints Exam/Review of Systems Vital Signs Vitals Vital Signs Date Time Temp Pulse Resp B/P Pulse Ox O2 Delivery O2 Flow Rate FiO2 07/12/16 16:12 73 07/12/16 15:58 98.3 20 168/61 100 07/08/16 16:47 Room Air Intake and Output 07/11/16 07/11/16 07/12/16 15:00 23:00 07:00 Intake Total 1250 ml 400 ml Output Total 950 ml 800 ml Balance 300 ml -400 ml Exam Constitutional: alert Respiratory: clear to auscultation Cardiovascular: regular rate and rhythm Gastrointestinal: soft, No distended Musculoskeletal: No nl extremities to inspection Results Result Diagram: 07/12/16 0630 07/12/16 0602 Results 24 hrs Laboratory Tests Test 07/11/16 17:24 07/11/16 20:52 07/12/16 02:34 07/12/16 06:02 Bedside Glucose 115 115 127 Sodium Level 131 L Potassium Level 3.4 L Chloride Level 108 Carbon Dioxide Level 22 Anion Gap 4 L Blood Urea Nitrogen 21 H Creatinine 1.37 H Glucose Level 89 Calcium Level 7.6 L Phosphorus Level 2.4 L Magnesium Level 2.5 Test 07/12/16 06:30 07/12/16 07:43 07/12/16 12:29 White Blood Count 9.7 # Red Blood Count 3.64 L Hemoglobin 10.3 L Hematocrit 30.3 L Mean Corpuscular Volume 83.2 Mean Corpuscular Hemoglobin 28.3 L Mean Corpuscular Hemoglobin Concent 34.0 Red Cell Distribution Width 13.0 Platelet Count 166 Mean Platelet Volume 10.7 H Neutrophils % 76.3 Lymphocytes % 10.2 L Monocytes % 8.2 Eosinophils % 2.6 Basophils % 0.2 Nucleated Red Blood Cells % 0.2 H Neutrophils # 7.4 Lymphocytes # 1.0 Monocytes # 0.8 Eosinophils # 0.3 Basophils # 0.0 Nucleated Red Blood Cells # 0.0 Bedside Glucose 90 169 Medications Medications Current Medications Ondansetron HCl (Zofran Inj) 4 mg Q6H PRN IV NAUSEA AND/OR VOMITING Last administered on 07/10/16 17:26; Admin Dose 4 MG; Start 07/08/16 at 17:30 Acetaminophen (Tylenol Tab) 650 mg Q6H PRN PO PAIN LEVEL 1-3 OR FEVER Last administered on 07/10/16 12:17; Admin Dose 650 MG; Start 07/08/16 at 17:30 Acetaminophen/ Hydrocodone Bitart ([place] (5/325)) 1 tab Q6H PRN PO MODERATE PAIN LEVEL 4-6; Start 07/08/16 at 17:30 Morphine Sulfate (morphine) 2 mg Q4H PRN IV SEVERE PAIN LEVEL 7-10 Last administered on 07/08/16 21:30; Admin Dose 2 MG; Start 07/08/16 at 17:30 Docusate Sodium (Colace) 100 mg Q12H PRN PO CONSTIPATION; Start 07/08/16 at 17: 30 Zolpidem Tartrate (Ambien) 5 mg QHS PRN PO SLEEP; Start 07/08/16 at 17:30 Heparin Sodium (Porcine) (Heparin (5000 Units/0.5 ml)) 5,000 unit Q12 SC Last administered on 07/12/16 08:21; Admin Dose 5,000 UNIT; Start 07/08/16 at 21:00 Insulin Glargine (Lantus) 10 unit DAILY@20 SC Last administered on 07/11/16 21 :02; Admin Dose 10 UNIT; Start 07/08/16 at 20:00 Diagnostic Test (Pha) (Accu-Chek) 1 ea 02 XX ; Start 07/09/16 at 02:00 Miscellaneous Information 1 ea NOTE XX ; Start 07/08/16 at 17:30 Glucose (Glutose) 15 gm Q15M PRN PO DECREASED GLUCOSE Last administered on 07/10 08:22; Admin Dose 15 GM; Start 07/08/16 at 17:30 Glucose (Glutose) 22.5 gm Q15M PRN PO DECREASED GLUCOSE; Start 07/08/16 at 17: 30 Dextrose (D50w Syringe) 25 ml Q15M PRN IV DECREASED GLUCOSE; Start 07/08/16 at 17:30 Dextrose (D50w Syringe) 50 ml Q15M PRN IV DECREASED GLUCOSE; Start 07/08/16 at 17:30 Glucagon (Glucagen) 1 mg Q15M PRN IM DECREASED GLUCOSE; Start 07/08/16 at 17:30 Glucose 15 gm 15 gm Q15M PRN BUCCAL DECREASED GLUCOSE; Start 07/08/16 at 17:30 Vancomycin HCl 250 ml @ 125 mls/hr Q48H IVPB Last administered on 07/11/16 10 :35; Admin Dose 125 MLS/HR; Start 07/11/16 at 11:00 Ceftriaxone Sodium (Rocephin) 50 ml @ 100 mls/hr Q24H IVPB Last administered on 07/12/16 12:32; Admin Dose 100 MLS/HR; Start 07/10/16 at 12:30 Collagenase (Santyl) 1 applic DAILY TOP Last administered on 07/12/16 08:20; Admin Dose 1 APPLIC; Start 07/12/16 at 09:00 Collagenase (Santyl) 1 applic PRN PRN TOP WOUND CARE; Start 07/11/16 at 15:30 Miscellaneous Information (*Rx Drug Level Order Reminder*) 1 ONCE ONCE XX ; Start 5/27/17 at 10:00; Stop 07/13/16 at 10:01 HEDY MAY July 12, 2016 16:42
[2016-07-12] MEDS: INSULIN GLARGINE [LANtus] 3 ML PEN SC SCH (22:09)
[2016-07-13] VITALS (12 sets, daily range): BP systolic 135–160; BP diastolic 63–72; PULSE 69–76; RESP 16–20
[2016-07-13] MEDS: ACCU-CHEK XX SCH (02:00)
[2016-07-13] MEDS: INSULIN ASPART [NOVOLOG] 3 ML PEN SC SCH ×4 (07:55→20:48)
[2016-07-13] MEDS: COLLAGENASE 30 GM TUBE TOP SCH (08:37)
[2016-07-13] MEDS: HEPARIN 5,000 UNIT/0.5 ML VIAL SC SCH ×2 (08:44→20:49)
--- NOTE | 2016-07-13 10:19 | PN ---
DATE: 07/13/2016 SUBJECTIVE: The patient is stable. No events overnight. No fevers, chills, nausea, vomiting. OBJECTIVE: VITAL SIGNS: Blood pressure 139/63, respirations 20, pulse 75, temperature 98.9. HEENT: Head is normocephalic. NECK: Supple. HEART: Regular rate. LUNGS: Show diminished breath sounds at base. ABDOMEN: Soft and nontender to palpation without rebound or guarding. EXTREMITIES: Negative for clubbing, cyanosis, no edema. DERMATOLOGIC: No rashes. MUSCULOSKELETAL: No joint effusions. NEUROLOGIC: No change in exam. MEDICATIONS: Have been reviewed. LABORATORY DATA: Has been reviewed, currently pending. ASSESSMENT AND PLAN: 1. Nonoliguric acute kidney injury on top of chronic kidney disease with unknown baseline creatinin e. Etiology is secondary to acute tubular necrosis. Patient's renal function has been stable over the last 24 hours. Continue current treatment plan, supportive care, renally dose medications. Follow up renal panel. 2. Chronic kidney disease secondary to diabetes, hypertension, nephrosclerosis, questionable ischem ic nephropathy. The patient is currently in acute kidney injury as stated above. Continue current treatment plan. Continue disease factor modification, monitor renal function closely. 3. Renal artery stenosis. The patient's CT angio and arterial Doppler ultrasound has been reviewed . At this point, will monitor closely. Continue medical management. No immediate need for interve ntion. If the patient does show signs of ischemic nephropathy, that would require intervention. Ho wever, patient's renal function has been improving. Will continue to observe. The findings were di scussed with ____. 4. Mineral bone disorder. Continue to monitor calcium and phosphorus levels. 5. Hyponatremia secondary to acute kidney injury causing decreased free water urinary excretion, wo uld recommend to limit free water intake. 6. Hypokalemia. Continue to monitor and replete. 7. Anemia. Continue to monitor hemoglobin and hematocrit levels. 8. Severe sepsis, cellulitis. Continue current antibiotic regimen. 9. Peripheral vascular disease, venous insufficiency. Continue to monitor. 10. Diabetes. Continue Accu-Cheks, insulin sliding scale. 11. History of cervical cancer, status post chemoradiation. 12. Gastrointestinal and deep venous thrombosis prophylaxis. Dictated By: KANDY JUDD/NICOL Conf#: [id number] [facility]#: [id number]
--- NOTE | 2016-07-13 10:53 | PDOCDIS ---
Discharge Instructions CONDITION Patient Condition: Good HOME CARE INSTRUCTIONS: Diet Instructions: Regular ACTIVITY: Activity Restrictions: No Restrictions FOLLOW UP/APPOINTMENTS Appointments F/U WITH YOUR PCP IN 1-2 WEEKS HEDY MAY July 13, 2016 10:53
--- NOTE | 2016-07-13 10:59 | CONS ---
Date/Time of Note Date/Time of Note DATE: 07/13/16 TIME: 10:59 Assessment/Plan Assessment/Plan Chief Complaint/Hosp Course ID PROGRESS NOTE CURRENT ABX: Vanco IV + Ceftriaxone => Total ABX day #5 * 07/12/16 0630 07/12/16 0602 24H INTERVAL SUMMARY * 76 yo F A/A/O Mohawk speaking, family in room able to interpret. She c/p LLEXT pain mainly in her posterior thigh and calf. * PAD per lower extremity duplex scan (+) high-grade stenosis in the mid to distal left superficial femoral artery. * CT ABD: Proctocolitis / chronic occlusion or severe stenosis of the right main renal artery. * BCx on admission (+) for Organism 1 STREPTOCOCCUS GROUP C * URINE CULTURE Final Organism 1 ESCHERICHIA COLI COLONY COUNT 20,000 - 30,000 CFU/ml . ------ PHYSICAL EXAMINATION: VITAL SIGNS: Afebrile, VSS GENERAL: Overweight F, sitting up eating lunch, c/o llext pain HEENT: Unremarkable NECK: supple LUNGS: Equal chest rise without dyspnea on observation HEART: RRR ABDOMEN: Soft, EXTREMITIES: Warm, LLEXT w/resolving cellulitis, scab lesions pre-tibial healing. SKIN: Intact ID IMPRESSION: 76 yo F admit with: 1. Sepsis=> resolving. 2. Streptococcal bacteremia with repeat blood cultures preliminary negative. 3. Urinary tract infection => E.Coli low colony counts 4. Left lower extremity acute on chronic cellulitis. 5. PAD=> with a high-grade stenosis in the mid to distal left superficial femoral artery per arterial study 6. Diabetes. 7. Proctocolitis per CT ABD due to History of cervical cancer status post chemoradiation. 8. Renal insufficiency (-) MRSA Nares INVASIVES: PIV CURRENT ABX: Ceftriaxone + Vanco IV ID RECOMMENDATION 1. Cellulitis improved overall -- BCx grew Strep C likely source is cellulitis sensitive to cephalosporins * DC Vanco IV & Continue Ceftriaxone 2. When cleared for DC home -> Anticipate DC home with [id number] IV daily until last day July 23, 2016 to cover concern bacteremia. ' UPTODATE LITERATURE REVIEW => [email or web address] Group C and group G streptococcal infection Author: Lui Carlton MD Section Marketing Sales Representative: Rell Salamanca MD [employer] Sales Representative: Chelsey Garcia MD, [facility] Contributor Disclosures All topics are updated as new evidence becomes available and our peer review process is complete. Literature review current through: May 2016. | This topic last updated: July 01, 2016. INTRODUCTION The designations "group C Streptococcus" (GCS) and "group G Streptococcus" (GGS) are used by clinical microbiology laboratories to denote clinical isolates of streptococci that react with [place] group C or G typing serum and, like Streptococcus pyogenes (group A Streptococcus), form large colonies on sheep blood agar, typically surrounded by a zone of beta- hemolysis. GCS and GGS are normal commensal trevor of the human upper airway and frequently are asymptomatic colonizers of the skin, gastrointestinal tract, and female genital tract. They are also implicated in mono- and polymicrobial infections of the skin and soft tissues, pharyngitis, bacteremia and endocarditis, septic arthritis and osteomyelitis, puerperal infections, and meningitis. GCS and GGS of human origin are now considered to constitute a single subspecies , Streptococcus dysgalactiae subsp equisimilis. A comparison of the complete genome sequence of a clinical isolate of GGS S. dysgalactiae subsp equisimilis with that of other streptococcal species demonstrated it is most closely related to S. pyogenes, with 72 percent sequence similarity [1]. S. dysgalactiae subsp equisimilis shares many virulence determinants with S. pyogenes, including the antiphagocytic M protein, streptolysin O, streptolysin S , streptokinase, and one or more pyrogenic exotoxins similar to those implicated in streptococcal toxic shock [1,2]. Problems: Consultation Date/Type/Reason Admit Date/Time July 08, 2016 at 13:27 Initial Consult Date Type of Consultation: ID Exam/Review of Systems Vital Signs Vitals Vital Signs Date Time Temp Pulse Resp B/P Pulse Ox O2 Delivery O2 Flow Rate FiO2 07/13/16 08:35 75 07/13/16 07:33 98.9 20 139/63 95 Intake and Output 07/12/16 07/12/16 07/13/16 15:00 23:00 07:00 Intake Total 1000 ml 600 ml Output Total 1400 ml 950 ml Balance -400 ml -350 ml Results Result Diagram: 07/12/16 0630 07/12/16 0602 Results 24 hrs Laboratory Tests Test 07/12/16 12:29 07/12/16 17:54 07/12/16 20:44 07/13/16 02:44 Bedside Glucose 169 121 145 158 Test 07/13/16 07:56 Bedside Glucose 107 Medications Medications Current Medications Ondansetron HCl (Zofran Inj) 4 mg Q6H PRN IV NAUSEA AND/OR VOMITING Last administered on 07/10/16 17:26; Admin Dose 4 MG; Start 07/08/16 at 17:30 Acetaminophen (Tylenol Tab) 650 mg Q6H PRN PO PAIN LEVEL 1-3 OR FEVER Last administered on 07/10/16 12:17; Admin Dose 650 MG; Start 07/08/16 at 17:30 Acetaminophen/ Hydrocodone Bitart ([place] (5/325)) 1 tab Q6H PRN PO MODERATE PAIN LEVEL 4-6; Start 07/08/16 at 17:30 Morphine Sulfate (morphine) 2 mg Q4H PRN IV SEVERE PAIN LEVEL 7-10 Last administered on 07/08/16 21:30; Admin Dose 2 MG; Start 07/08/16 at 17:30 Docusate Sodium (Colace) 100 mg Q12H PRN PO CONSTIPATION; Start 07/08/16 at 17: 30 Zolpidem Tartrate (Ambien) 5 mg QHS PRN PO SLEEP; Start 07/08/16 at 17:30 Heparin Sodium (Porcine) (Heparin (5000 Units/0.5 ml)) 5,000 unit Q12 SC Last administered on 07/13/16 08:44; Admin Dose 5,000 UNIT; Start 07/08/16 at 21:00 Insulin Glargine (Lantus) 10 unit DAILY@20 SC Last administered on 07/12/16 22 :09; Admin Dose 10 UNIT; Start 07/08/16 at 20:00 Diagnostic Test (Pha) (Accu-Chek) 1 ea 02 XX ; Start 07/09/16 at 02:00 Miscellaneous Information 1 ea NOTE XX ; Start 07/08/16 at 17:30 Glucose (Glutose) 15 gm Q15M PRN PO DECREASED GLUCOSE Last administered on 07/10 08:22; Admin Dose 15 GM; Start 07/08/16 at 17:30 Glucose (Glutose) 22.5 gm Q15M PRN PO DECREASED GLUCOSE; Start 07/08/16 at 17: 30 Dextrose (D50w Syringe) 25 ml Q15M PRN IV DECREASED GLUCOSE; Start 07/08/16 at 17:30 Dextrose (D50w Syringe) 50 ml Q15M PRN IV DECREASED GLUCOSE; Start 07/08/16 at 17:30 Glucagon (Glucagen) 1 mg Q15M PRN IM DECREASED GLUCOSE; Start 07/08/16 at 17:30 Glucose 15 gm 15 gm Q15M PRN BUCCAL DECREASED GLUCOSE; Start 07/08/16 at 17:30 Vancomycin HCl 250 ml @ 125 mls/hr Q48H IVPB Last administered on 07/11/16 10 :35; Admin Dose 125 MLS/HR; Start 07/11/16 at 11:00 Ceftriaxone Sodium (Rocephin) 50 ml @ 100 mls/hr Q24H IVPB Last administered on 07/12/16 12:32; Admin Dose 100 MLS/HR; Start 07/10/16 at 12:30 Collagenase (Santyl) 1 applic DAILY TOP Last administered on 07/13/16 08:37; Admin Dose 1 APPLIC; Start 07/12/16 at 09:00 Collagenase (Santyl) 1 applic PRN PRN TOP WOUND CARE; Start 07/11/16 at 15:30 CHRISSIE RAMIREZ NP July 13, 2016 10:59
--- NOTE | 2016-07-13 11:01 | RADRPT ---
PROCEDURE: Ultrasound guided PICC line placement CLINICAL INDICATION: PICC line placement COMPARISON: None available TECHNIQUE: Real-time high-resolution ultrasound imaging in transverse and longitudinal planes was p erformed in the upper arm to evaluate venous size and location for needle insertion during PICC line placement. Lead Esthetician images were submitted for interpretation. FINDINGS: Focused ultrasound imaging of the upper arm was performed for placement of PICC line. No radiologist was present for the procedure. No diagnosis was made from the images. IMPRESSION: 1. Focused ultrasound for placement of PICC line. RPTAT: QQ .Ronaldo Levy MD, Date Time Electronically viewed and signed by .Ronaldo Levy MD, on 07/13/2016 11:00 .Link/
--- NOTE | 2016-07-13 11:08 | RADRPT ---
PROCEDURE: XR Chest. CLINICAL INDICATION: PICC line placement TECHNIQUE: PA and lateral chest x-ray. COMPARISON: 07/08/2016 FINDINGS: There is interval placement right-sided PICC line which terminates 1 cm into right atrium. There is retrocardiac consolidation with obscured left hemidiaphragm. Blunting of left costophrenic angle may represent trace effusion. No evidence of pneumothorax. The heart size is large. There is atherosclerotic calcification of the aorta. The cardiomediastina l silhouette is otherwise unremarkable. The soft tissues are within normal limits. Bony structures are unremarkable. IMPRESSION: 1. Interval placement right-sided PICC line which terminates 1 cm into the right atrium. 2. New retrocardiac atelectasis versus infiltrate. 3. Possible trace left pleural effusion. 4. Cardiomegaly. 5. Atherosclerotic calcification of the aorta. RPTAT: QQ .Ronaldo Levy MD, MD Date Time Electronically viewed and signed by .Ronaldo Levy MD, on 07/13/2016 11:08 .M/
[2016-07-13 11:13] LABS: ADD SCAN DIFF NO
[2016-07-13 11:17] LABS: ABNORMAL IP MESSAGE 1; BASOPHILS % 0.2 % (0.0-2.0); EOSINOPHILS # 0.3 10^3/ul (0.0-0.5); EOSINOPHILS % 2.5 % (0.0-7.0); HEMATOCRIT 31.2 % (37.0-47.0); HEMOGLOBIN 10.5 g/dl (12.0-16.0); LYMPHOCYTES # 1.1 10^3/ul (0.8-2.9); LYMPHOCYTES % 11.6 % (15.0-51.0); MEAN CORPUSCULAR HEMOGLOBIN 28.2 pg (29.0-33.0); MEAN CORPUSCULAR HGB CONC 33.7 g/dl (32.0-37.0); MEAN CORPUSCULAR VOLUME 83.6 fl (82.0-101.0); MONOCYTE # 0.8 10^3/ul (0.3-0.9); MONOCYTES % 8.1 % (0.0-11.0); NEUTROPHIL # 6.9 10^3/ul (1.6-7.5); NEUTROPHILS % 69.7 % (39.0-77.0); NUCLEATED RED BLOOD CELLS% 0.2 /100WBC (0.0-0.0); PLATELET COUNT 206 10^3/UL (140-415); RED BLOOD COUNT 3.73 10^6/ul (4.20-5.40); RED CELL DISTRIBUTION WIDTH 13.1 % (11.5-14.5); WHITE BLOOD COUNT 9.8 10^3/ul (4.8-10.8)
[2016-07-13 11:39] LABS: CALCIUM 7.8 mg/dl (8.4-10.2); CREATININE 1.22 mg/dl (0.44-1.00); MAGNESIUM 2.1 mg/dl (1.7-2.5); PHOSPHORUS 2.7 mg/dl (2.5-4.9); POTASSIUM 3.8 mmol/L (3.5-5.1)
[2016-07-13] MEDS: CEFTRIAXONE 1 GM/50 ML (PMX) 50 ML IVPB SCH (11:44)
[2016-07-13] MEDS ORDERED: VANCOMYCIN 1 GM in NS 250 ML IVPB SCH (13:00)
[2016-07-13] MEDS: INSULIN GLARGINE [LANtus] 3 ML PEN SC SCH (21:33)
[2016-07-14] VITALS (8 sets, daily range): BP systolic 139–161; BP diastolic 64–72; PULSE 70–80; RESP 16–20
[2016-07-14] MEDS: ACCU-CHEK XX SCH (02:35)
--- NOTE | 2016-07-14 06:24 | DS ---
DATE OF ADMISSION: 07/08/2016 DATE OF DISCHARGE: 07/13/2016 DISCHARGE DIAGNOSES: 1. Severe sepsis secondary to sepsis from left lower extremity cellulitis as well as urinary tract infection. Continue vancomycin and Rocephin via PICC line and home health until 07/21/2016. Infect ious disease consultation is appreciated. The etiology of ____ lower extremity cellulitis is second odette to chronic lymphedema from previous surgery for cervical cancer. 2. History of diabetes. A1c is 8.6. Continue home regimen. 3. History of cervical cancer, status post-surgery and chemoradiation in 2011. 4. 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 5. Severe leukopenia secondary to severe sepsis, resolved. 6. Acute kidney injury secondary to sepsis, stable. 7. Chronic ulcer of the medial malleolus of the right lower extremity secondary to venous insuffici ency ulcer with likely peripheral vascular disease. Vascular consultation appreciated during the ho spitalization. The patient will follow up with vascular surgery for further outpatient workup. The patient will also get home health for wound care. HOSPITAL COURSE: The patient is a 76-year-old female with a history of cervical cancer, status post chemoradiation in 2011, as well as bilateral groin lymph node dissection with recurrent left lower extremity cellulitis and chronic lymphedema. The patient had persistent nausea, vomiting, diarrhea; was found to have severe sepsis, likely secondary to left lower extremity cellulitis. The patient' s blood cultures indeed did show strep Group C and 2 occupational therapy of 2 cultures. The patien t's urine culture also showed E. coli. The patient was seen by ID. The patient was put on vancomyc in and Rocephin. The patient did have a chronic ulcer of the right medial malleolus, felt to be sec ondary to venous insufficiency ulcer. The patient was seen by vascular surgery and workup including extremity arterial study showed high grade stenosis in the mid to distal left superficial femoral a rtery. The patient did have extremity venous study that showed no evidence of DVT. Further diagnos tics were limited secondary to the patient's acute kidney injury from sepsis. The patient was seen by nephrology. CTA was not done as the patient once again has kidney injury at this time and it was improving. It was felt the patient had bilateral lower extremity atherosclerosis with intermittent claudication. Vascular surgery did agree that the patient did have right lower extremity venous st asis ulcer. She does have a longstanding history of this. The patient was recommended to follow up with vascular surgery as an outpatient. The patient was felt to be stable for discharge with IV an tibiotics. PICC line was placed. The patient was to continue receiving vancomycin and Rocephin unt mn 07/21/2016. This was discussed with ID. On day of discharge, the patient's vitals were stable. Labs were stable as was physical exam. She had no acute complaints. Questions were answered. [facility] hrology agreed the patient was cleared for discharge. Vascular surgery ____ follow up with them as an outpatient and vascular surgery agreed that outpatient workup would be indicated. Once again on day of discharge the patient's vitals, labs, physical exam were stable. She had no acute complaints . Questions were answered. CONDITION ON DISCHARGE: Stable. DISPOSITION: To home with home health for IV antibiotics. MEDICATIONS: The patient is to continue her usual home medications. She is also to continue vancom ycin and Rocephin until 07/21/2016. FOLLOWUP: The patient is to follow up with her PCP in 1 to 2 weeks and is follow up with ____ o f vascular surgery. Greater than 30 minutes was spent coordinating discharge of this patient. Dictated By: HEDY MAY MD BS/NTS Conf#: [id number] DID#: [id number]
[2016-07-14 06:30] LABS: ADD SCAN DIFF NO
[2016-07-14 06:48] LABS: ABNORMAL IP MESSAGE 1; BASOPHILS % 0.2 % (0.0-2.0); EOSINOPHILS # 0.3 10^3/ul (0.0-0.5); EOSINOPHILS % 2.2 % (0.0-7.0); HEMATOCRIT 30.3 % (37.0-47.0); HEMOGLOBIN 10.2 g/dl (12.0-16.0); LYMPHOCYTES # 1.3 10^3/ul (0.8-2.9); LYMPHOCYTES % 11.3 % (15.0-51.0); MEAN CORPUSCULAR HGB CONC 33.7 g/dl (32.0-37.0); MEAN CORPUSCULAR VOLUME 83.2 fl (82.0-101.0); MONOCYTE # 0.9 10^3/ul (0.3-0.9); MONOCYTES % 7.5 % (0.0-11.0); NEUTROPHILS % 70.6 % (39.0-77.0); NUCLEATED RED BLOOD CELLS% 0.4 /100WBC (0.0-0.0); PLATELET COUNT 231 10^3/UL (140-415); RED BLOOD COUNT 3.64 10^6/ul (4.20-5.40); RED CELL DISTRIBUTION WIDTH 12.9 % (11.5-14.5); WHITE BLOOD COUNT 11.3 10^3/ul (4.8-10.8)
[2016-07-14 07:02] LABS: CALCIUM 7.9 mg/dl (8.4-10.2); CREATININE 1.2 mg/dl (0.44-1.00); POTASSIUM 3.8 mmol/L (3.5-5.1)
[2016-07-14] MEDS: INSULIN ASPART [NOVOLOG] 3 ML PEN SC SCH ×3 (07:55→17:47)
[2016-07-14] MEDS: COLLAGENASE 30 GM TUBE TOP SCH (09:25)
[2016-07-14] MEDS: HEPARIN 5,000 UNIT/0.5 ML VIAL SC SCH (09:26)
--- NOTE | 2016-07-14 11:45 | PN ---
DATE: 07/14/2016 SUBJECTIVE: The patient is stable, no acute events overnight. No fevers, chills, nausea, vomiting, no shortness of breath. OBJECTIVE: VITAL SIGNS: Blood pressure is 159/68, respiratory rate 20, pulse 76, temperature 98.7. HEENT: Head is normocephalic. NECK: Supple. HEART: Regular rate. LUNGS: Show diminished breath sounds at the base. ABDOMEN: Soft, nontender to palpation, no rebound or guarding. EXTREMITIES: Negative for clubbing, cyanosis. Trace edema. DERMATOLOGIC: No rashes. MUSCULOSKELETAL: No joint effusions. NEUROLOGIC: No change in exam. MEDICATIONS: The patient's medications have been reviewed. LABORATORY DATA: Shows sodium 138, potassium 3.8, BUN 20, creatinine 1.20. White count 11.3, hemog lobin 10.2, hematocrit 30.3, platelet count is 231. ASSESSMENT AND PLAN: 1. Nonoliguric acute kidney injury on top of chronic kidney disease with unknown baseline creatinin e. Etiology secondary to acute tubular necrosis. Renal function has been improving. Continue curr ent treatment plan, supportive care, renally dose all medications. 2. Chronic kidney disease, secondary to diabetes, hypertension, nephrosclerosis. The patient is cu rrently in acute condition stated above with improvement in renal function. Otherwise, continue dis ease factor modifications. 3. Renal artery stenosis. The patient's CT angio arterial Doppler study has been reviewed. The pa tient has no immediate need for intervention as renal function is improving and blood pressure is we ll controlled. We will continue to monitor closely in outpatient setting. 4. Mineral bone disorder. Continue to monitor calcium and phosphorus levels. 5. Hyponatremia, resolved. Continue to monitor. 6. Anemia. Continue to monitor H and H levels. 7. Sepsis, cellulitis. Continue current antibiotic regimen. 8. Peripheral vascular disease with venous insufficiency. Continue to monitor. Follow up with vas cular surgery. 9. Diabetes, continue Accu-Cheks and insulin sliding scale. 10. History of cervical cancer status post chemoradiation. 11. Gastrointestinal and deep venous thrombosis prophylaxis. Dictated By: KANDY JUDD/NTS Conf#: [id number] DID#: [id number]
[2016-07-14] MEDS: CEFTRIAXONE 1 GM/50 ML (PMX) 50 ML IVPB SCH (13:00)
--- NOTE | 2016-07-14 16:15 | CONS ---
Date/Time of Note Date/Time of Note DATE: 07/14/16 TIME: 16:13 Assessment/Plan Assessment/Plan Chief Complaint/Hosp Course ID PROGRESS NOTE CURRENT ABX: Vanco IV + Ceftriaxone => Total ABX day #6 24H INTERVAL SUMMARY * Worked w/PTx today per notes, low grade Tmax 99.6 w/WBC slightly elevated * 76 yo F A/A/O Kyrgyz speaking, family in room able to interpret. She c/p LLEXT pain mainly in her posterior thigh and calf. * PAD per lower extremity duplex scan (+) high-grade stenosis in the mid to distal left superficial femoral artery. * CT ABD: Proctocolitis / chronic occlusion or severe stenosis of the right main renal artery. * BCx on admission (+) for Organism 1 STREPTOCOCCUS GROUP C * URINE CULTURE Final Organism 1 ESCHERICHIA COLI COLONY COUNT 20,000 - 30,000 CFU/ml . ------ PHYSICAL EXAMINATION: VITAL SIGNS: Afebrile, VSS GENERAL: Overweight F, sitting up eating lunch, c/o llext pain HEENT: Unremarkable NECK: supple LUNGS: Equal chest rise without dyspnea on observation HEART: RRR ABDOMEN: Soft, EXTREMITIES: Warm, LLEXT w/resolving cellulitis, scab lesions pre-tibial healing. SKIN: Intact ID IMPRESSION: 76 yo F admit with: 1. Sepsis=> resolving. 2. Streptococcal bacteremia with repeat blood cultures preliminary negative. 3. Urinary tract infection => E.Coli low colony counts 4. Left lower extremity acute on chronic cellulitis. 5. PAD=> with a high-grade stenosis in the mid to distal left superficial femoral artery per arterial study 6. Diabetes. 7. Proctocolitis per CT ABD due to History of cervical cancer status post chemoradiation. 8. Renal insufficiency (-) MRSA Nares INVASIVES: PIV CURRENT ABX: Ceftriaxone + Vanco IV ID RECOMMENDATION 1. Cellulitis improved overall -- BCx grew Strep C likely source is cellulitis sensitive to cephalosporins * DC Vanco IV & Continue Ceftriaxone 2. When cleared for DC home -> Anticipate DC home with [id number] IV daily until last day July 23, 2016 to cover concern bacteremia. ' UPTODATE LITERATURE REVIEW => [email or web address] Group C and group G streptococcal infection Author: Lui Carlton MD Section Car Dispatcher: Rell Salamanca MD [place] Car Dispatcher: Chelsey Garcia MD, [facility] Contributor Disclosures All topics are updated as new evidence becomes available and our peer review process is complete. Literature review current through: May 2016. | This topic last updated: July 01, 2016. INTRODUCTION The designations "group C Streptococcus" (GCS) and "group G Streptococcus" (GGS) are used by clinical microbiology laboratories to denote clinical isolates of streptococci that react with [place] group C or G typing serum and, like Streptococcus pyogenes (group A Streptococcus), form large colonies on sheep blood agar, typically surrounded by a zone of beta- hemolysis. GCS and GGS are normal commensal trevor of the human upper airway and frequently are asymptomatic colonizers of the skin, gastrointestinal tract, and female genital tract. They are also implicated in mono- and polymicrobial infections of the skin and soft tissues, pharyngitis, bacteremia and endocarditis, septic arthritis and osteomyelitis, puerperal infections, and meningitis. GCS and GGS of human origin are now considered to constitute a single subspecies , Streptococcus dysgalactiae subsp equisimilis. A comparison of the complete genome sequence of a clinical isolate of GGS S. dysgalactiae subsp equisimilis with that of other streptococcal species demonstrated it is most closely related to S. pyogenes, with 72 percent sequence similarity [1]. S. dysgalactiae subsp equisimilis shares many virulence determinants with S. pyogenes, including the antiphagocytic M protein, streptolysin O, streptolysin S , streptokinase, and one or more pyrogenic exotoxins similar to those implicated in streptococcal toxic shock [1,2]. Problems: Consultation Date/Type/Reason Admit Date/Time July 08, 2016 at 13:27 Type of Consultation: ID Exam/Review of Systems Vital Signs Vitals Vital Signs Date Time Temp Pulse Resp B/P Pulse Ox O2 Delivery O2 Flow Rate FiO2 07/14/16 16:08 98.5 07/14/16 16:07 77 07/14/16 15:25 16 139/68 95 Intake and Output 07/13/16 07/13/16 07/14/16 15:00 23:00 07:00 Intake Total 1020 ml 500 ml Output Total 1200 ml 1200 ml Balance -180 ml -700 ml Results Result Diagram: 07/14/16 0545 07/14/16 0552 Results 24 hrs Laboratory Tests Test 07/13/16 17:04 07/13/16 20:40 07/14/16 02:30 07/14/16 05:45 Bedside Glucose 168 170 110 White Blood Count 11.3 H Red Blood Count 3.64 L Hemoglobin 10.2 L Hematocrit 30.3 L Mean Corpuscular Volume 83.2 Mean Corpuscular Hemoglobin 28.0 L Mean Corpuscular Hemoglobin Concent 33.7 Red Cell Distribution Width 12.9 Platelet Count 231 Mean Platelet Volume 11.0 H Neutrophils % 70.6 Lymphocytes % 11.3 L Monocytes % 7.5 Eosinophils % 2.2 Basophils % 0.2 Nucleated Red Blood Cells % 0.4 H Neutrophils # 8.0 H Lymphocytes # 1.3 Monocytes # 0.9 Eosinophils # 0.3 Basophils # 0.0 Nucleated Red Blood Cells # 0.0 Test 07/14/16 05:52 07/14/16 07:55 07/14/16 11:56 Sodium Level 135 Potassium Level 3.8 Chloride Level 104 Carbon Dioxide Level 24 Anion Gap 11 Blood Urea Nitrogen 20 Creatinine 1.20 H Glucose Level 101 # Calcium Level 7.9 L Bedside Glucose 96 171 Medications Medications Current Medications Ondansetron HCl (Zofran Inj) 4 mg Q6H PRN IV NAUSEA AND/OR VOMITING Last administered on 07/10/16 17:26; Admin Dose 4 MG; Start 07/08/16 at 17:30 Acetaminophen (Tylenol Tab) 650 mg Q6H PRN PO PAIN LEVEL 1-3 OR FEVER Last administered on 07/10/16 12:17; Admin Dose 650 MG; Start 07/08/16 at 17:30 Acetaminophen/ Hydrocodone Bitart ([place] (5/325)) 1 tab Q6H PRN PO MODERATE PAIN LEVEL 4-6; Start 07/08/16 at 17:30 Morphine Sulfate (morphine) 2 mg Q4H PRN IV SEVERE PAIN LEVEL 7-10 Last administered on 07/08/16 21:30; Admin Dose 2 MG; Start 07/08/16 at 17:30 Docusate Sodium (Colace) 100 mg Q12H PRN PO CONSTIPATION; Start 07/08/16 at 17: 30 Zolpidem Tartrate (Ambien) 5 mg QHS PRN PO SLEEP; Start 07/08/16 at 17:30 Heparin Sodium (Porcine) (Heparin (5000 Units/0.5 ml)) 5,000 unit Q12 SC Last administered on 07/14/16 09:26; Admin Dose 5,000 UNIT; Start 07/08/16 at 21:00 Insulin Glargine (Lantus) 10 unit DAILY@20 SC Last administered on 07/13/16 21 :33; Admin Dose 10 UNIT; Start 07/08/16 at 20:00 Diagnostic Test (Pha) (Accu-Chek) 1 ea 02 XX Last administered on 07/14/16 02: 35; Admin Dose 1 EA; Start 07/09/16 at 02:00 Miscellaneous Information 1 ea NOTE XX ; Start 07/08/16 at 17:30 Glucose (Glutose) 15 gm Q15M PRN PO DECREASED GLUCOSE Last administered on 07/10 08:22; Admin Dose 15 GM; Start 07/08/16 at 17:30 Glucose (Glutose) 22.5 gm Q15M PRN PO DECREASED GLUCOSE; Start 07/08/16 at 17: 30 Dextrose (D50w Syringe) 25 ml Q15M PRN IV DECREASED GLUCOSE; Start 07/08/16 at 17:30 Dextrose (D50w Syringe) 50 ml Q15M PRN IV DECREASED GLUCOSE; Start 07/08/16 at 17:30 Glucagon (Glucagen) 1 mg Q15M PRN IM DECREASED GLUCOSE; Start 07/08/16 at 17:30 Glucose 15 gm 15 gm Q15M PRN BUCCAL DECREASED GLUCOSE; Start 07/08/16 at 17:30 Ceftriaxone Sodium (Rocephin) 50 ml @ 100 mls/hr Q24H IVPB Last administered on 07/14/16 13:00; Admin Dose 100 MLS/HR; Start 07/10/16 at 12:30 Collagenase (Santyl) 1 applic DAILY TOP Last administered on 07/14/16 09:25; Admin Dose 1 APPLIC; Start 07/12/16 at 09:00 Collagenase (Santyl) 1 applic PRN PRN TOP WOUND CARE; Start 07/11/16 at 15:30 IV Flush (NS 10 ml) 10 ml PRN PRN IV FLUSH LINE; Start 07/13/16 at 16:30 CHRISSIE RAMIREZ NP July 14, 2016 16:15
--- NOTE | 2016-07-14 20:50 | DS ---
DATE OF ADMISSION: 07/08/2016 DATE OF DISCHARGE: 07/14/2016 ADDENDUM DISCHARGE DIAGNOSES: 1. Severe sepsis secondary to sepsis from left lower extremity cellulitis as well as urinary tract infection. The patient to continue antibiotics via home health and via the peripherally inserted ce ntral catheter with vancomycin and Rocephin until 07/21/2016. 2. Diabetes. A1c is 8.6. The patient is to follow up with PCP and continue regimen. 3. History of cervical cancer, status post surgery and chemoradiation in 2011. 4. Right renal artery occlusion, likely chronic. 5. Severe leukopenia secondary to severe sepsis, resolved. 6. Acute kidney injury secondary to sepsis, stable. 7. Chronic ulcer of the medial malleolus of the right lower extremity secondary to venous insuffici ency ulcer with likely peripheral vascular disease. Vascular consultation appreciated during the ho spitalization. The patient to follow up with Vascular Surgery as an outpatient. HOSPITAL COURSE: Please see discharge summary from 07/13/2016 for hospital course. CONDITION ON DISCHARGE: Stable. DISPOSITION: To home with home health for IV antibiotics. MEDICATIONS: The patient to continue her usual home medications. She is also to continue vancomyci n and Rocephin until 07/21/2016. FOLLOWUP: The patient is to follow up with her PCP in 1 to 2 weeks, to follow up with Dr. Bain of Vascular Surgery. The patient to also follow up with home health agency. Greater than 30 minutes was spent coordinating discharge of patient. Dictated By: HEDY MAY MD BS/NTS Conf#: [id number] DID#: [id number]
== END 2016-07-14 18:10 | disposition home health service (06) | DRG 871 ==
LOC: E/R 08:50 → TEL 13:27 → UNDOADMIN 16:18 → TEL 07-09 23:55
PROVIDERS: ADMIT Internal Medicine; ATTEND Internal Medicine
PROC: 02H633Z Insertion of Infusion Device into Right Atrium, Percutaneous Approach (ICD-10-PCS; principal; 2016-07-13)
PROC: B244ZZZ Ultrasonography of Right Heart (ICD-10-PCS; 2016-07-13)
DX: A40.8 Other streptococcal sepsis (principal); N17.0 Acute kidney failure with tubular necrosis; R65.20 Severe sepsis without septic shock; L03.116 Cellulitis of left lower limb; E11.51 Type 2 diabetes mellitus with diabetic peripheral angiopathy without gangrene; E11.22 Type 2 diabetes mellitus with diabetic chronic kidney disease; E87.1 Hypo-osmolality and hyponatremia; N39.0 Urinary tract infection, site not specified; N28.0 Ischemia and infarction of kidney; L97.319 Non-pressure chronic ulcer of right ankle with unspecified severity; I97.89 Other postprocedural complications and disorders of the circulatory system, not elsewhere classified; A41.51 Sepsis due to Escherichia coli [E. coli]; Z85.41 Personal history of malignant neoplasm of cervix uteri; Z92.21 Personal history of antineoplastic chemotherapy; Z92.3 Personal history of irradiation; I89.0 Lymphedema, not elsewhere classified; I12.9 Hypertensive chronic kidney disease with stage 1 through stage 4 chronic kidney disease, or unspecified chronic kidney disease; N18.9 Chronic kidney disease, unspecified; E83.89 Other disorders of mineral metabolism; D64.9 Anemia, unspecified; E83.42 Hypomagnesemia; Y83.8 Other surgical procedures as the cause of abnormal reaction of the patient, or of later complication, without mention of misadventure at the time of the procedure; I70.213 Atherosclerosis of native arteries of extremities with intermittent claudication, bilateral legs; I83.013 Varicose veins of right lower extremity with ulcer of ankle; N14.1 Nephropathy induced by other drugs, medicaments and biological substances; T50.8X5A Adverse effect of diagnostic agents, initial encounter
CPT/HCPCS: 36415; 36569; 71010; 74177; 76937; 80048; 80053; 80061; 80202; 81001; 81003; 82043; 82962; 83036; 83605; 83690; 83735; 84100; 84155; 84300; 85025; 87040; 87086; 93922; 93971; 93976; 96374; 96375; 97162; J0692; J0696; J1170; J1644; J1815; J2270; J2405; J2543; J3370; J7030; J7040; Q9967

== ENCOUNTER 2016-12-06 19:21 | Inpatient (IN) | payer OTHER ==
[~2016-12-06] VITALS: Ht 142.2 cm; Wt 66.5 kg
[~2016-12-06 19:21] MED LIST changes: +CALC1TAB79 PO; +MELO7.5O PO
[2016-12-06] MEDS ORDERED: PIPER-TAZO 3.375 GM IV (PMX) 100 ML IVPB STA (20:07)
[2016-12-06] MEDS ORDERED: SODIUM CHLORIDE 0.9% 1L BAG IV* STA (20:07)
[2016-12-06] MEDS ORDERED: morphine 4 MG/ML VIAL IV STA (20:07)
[2016-12-06] MEDS ORDERED: VANCOMYCIN 1 GM (PMX) 250 ML IVPB ONE (20:30)
[2016-12-06 20:37] LABS: ABNORMAL IP MESSAGE 1; HEMATOCRIT 41.6 % (37.0-47.0); HEMOGLOBIN 13.2 g/dl (12.0-16.0); MEAN CORPUSCULAR HEMOGLOBIN 25.8 pg (29.0-33.0); MEAN CORPUSCULAR HGB CONC 31.7 g/dl (32.0-37.0); MEAN CORPUSCULAR VOLUME 81.3 fl (82.0-101.0); MEAN PLATELET VOLUME 10.5 fl (7.4-10.4); PLATELET COUNT 244 10^3/UL (140-415); RED BLOOD COUNT 5.12 10^6/ul (4.20-5.40); RED CELL DISTRIBUTION WIDTH 14.4 % (11.5-14.5)
[2016-12-06 20:41] LABS: INR 1.06; PROTIME 13.8 Sec (12.2-14.2); PT RATIO 1.1
[2016-12-06 20:42] LABS: PARTIAL THROMBOPLASTIN TIME 25.7 Sec (25.0-35.0)
[2016-12-06 20:45] LABS: ALBUMIN 3.6 g/dl (3.3-4.9); BILIRUBIN,INDIRECT 0.2 mg/dl (0-1.1); BILIRUBIN,TOTAL 0.2 mg/dl (0.2-1.3); CALCIUM 8.9 mg/dl (8.4-10.2); CREATININE 1.79 mg/dl (0.44-1.00); POTASSIUM 3.4 mmol/L (3.5-5.1); TOTAL PROTEIN 7.2 g/dl (6.1-8.1)
[2016-12-06 20:51] LABS: POSITIVE DIFF @See below
[2016-12-06 20:55] LABS: TROPONIN-I 0.065 ng/ml (0.00-0.12)
[2016-12-06 22:04] LABS: BASOPHIL # 0.1 10^3/ul (0.0-0.1); LYMPHOCYTES # 0.3 10^3/ul (0.8-2.9); METAMYELOCYTES %M 3 % (0-0); MONOCYTE # 0.2 10^3/ul (0.3-0.9); MONOCYTES % (M) 6 % (0-11)
--- NOTE | 2016-12-06 22:17 | RADRPT ---
PROCEDURE: X-ray Chest. CLINICAL INDICATION: Sepsis. TECHNIQUE: Single view chest x-ray. COMPARISON: Exam dated 07/13/2016. FINDINGS: There are atherosclerotic changes of the aorta. The cardiomediastinal silhouette remains enlarged. Patchy scarring at the lateral right lung base is unchanged. The lungs are otherwise ivory r without focal consolidation, effusion, or pneumothorax. There are no acute osseous abnormalities. IMPRESSION: 1. Cardiomegaly, unchanged. No new focal consolidation. 2. Vascular calcifications consistent with atherosclerosis. RPTAT: HLBP .Les Perry MD, MD Date Time Electronically viewed and signed by .Les Perry MD, MD on 12/06/2016 22:17 .P/
[2016-12-06 23:00] VITALS: TEMP 98.7
[2016-12-06] MEDS ORDERED: SOD CHLORIDE 0.9% 1,000 ML IV ONE (23:00)
[2016-12-06 23:29] LABS: ADD UMIC NO; UR ASCORBIC ACID NEGATIVE (NEGATIVE); UR BILIRUBIN (Dip) NEGATIVE (NEGATIVE); UR BLOOD (Dip) NEGATIVE (NEGATIVE); UR CLARITY CLEAR (CLEAR); UR COLOR YELLOW (YELLOW); UR GLUCOSE (Dip) 1+ mg/dL (NEGATIVE); UR KETONES (Dip) NEGATIVE (NEGATIVE); UR LEUKOCYTE ESTERASE (Dip) NEGATIVE Leu/ul (NEGATIVE); UR NITRITE (Dip) NEGATIVE (NEGATIVE); UR TOTAL PROTEIN (Dip) NEGATIVE (NEGATIVE); UR UROBILINOGEN (Dip) NEGATIVE (NEGATIVE)
[2016-12-07] VITALS (11 sets, daily range): BP systolic 97–138; BP diastolic 54–62; PULSE 84–100; RESP 16–19; Ht 142.2 cm; Wt 66.5 kg
[2016-12-07] MEDS ORDERED: MULTI PO (01:04)
--- NOTE | 2016-12-07 01:09 | ERD ---
ER Documentation Chief Complaint Chief Complaint hypotension, swelling of left leg, treated today at [facility] This 76-year-old female presents for left leg swelling. She was seen at another emergency room today with a partly treated her at all and give her Tylenol for her leg pain. She is a diabetic on metformin with several days of increasing leg swelling and pain. The pain is circumferential. The patient has chills but no fevers. Denies any chest pain shortness of breath occasionally has nausea and currently has nausea. ROS All systems reviewed and are negative except as per history of present illness. Medications Home Meds Reported Medications Multivitamins* (Theragran*) 1 Tab Tab, 1 TAB PO DAILY, TAB 12/07/16 Metformin* (Glucophage*) 500 Mg Tab, 500 MG PO BID, #30 TAB 07/08/16 Discontinued Reported Medications Meloxicam* (Meloxicam*) 7.5 Mg/5 Ml Oral.susp, 15 MG PO DAILY, #300 ML 07/08/16 Calcium Carbonate/Vitamin D3 (Oysco 500+D Tablet) 1 Each Tablet, 1 TAB PO DAILY , TAB 07/08/16 Allergies Allergies: Coded Allergies: No Known Allergy (Verified , 07/11/16) PMhx/Soc History of Surgery: Yes (LYMPH NODE REMOVAL LEFT LEG , C SECTION, CERVICAL ) Anesthesia Reaction: No Hx Neurological Disorder: No Hx Respiratory Disorders: No Hx Cardiac Disorders: Yes (HTN) Hx Psychiatric Problems: No Hx Miscellaneous Medical Probl: Yes (cervical CA stage 2, LLE cellulitis. 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 Neck: Full range of motion..~ No meningismus. Resp: Clear to auscultation bilaterally Cardio: Regular rate and rhythm, no murmurs Abd: Soft, non tender, non distended. Normal bowel sounds Skin: No petechiae or rashes Back: No midline or flank tenderness Ext: No cyanosis, significant circumferential right lower extremity edema from level of the upper foot tracking up more than half-way up the lower leg to the calf, this is tender, significant for marketed calor, erythematous. Distal capillary refill is intact. Distal pulses are intact. Neur: Awake and alert and oriented 3, no focal deficits Psych: Normal Mood and Affect Result Diagram: 12/06/16200612/06/161945 Results 24 hrs Laboratory Tests Test 12/06/16 19:46 12/06/16 20:07 12/06/16 20:47 Sodium Level 137mmol/L Potassium Level 3.4mmol/L Chloride Level 99mmol/L Carbon Dioxide Level 24mmol/L Anion Gap 17 Blood Urea Nitrogen 24mg/dl Creatinine 1.79mg/dl Glucose Level 201mg/dl Lactic Acid Level 5.0mmol/L Calcium Level 8.9mg/dl Total Bilirubin 0.2mg/dl Direct Bilirubin 0.00mg/dl Indirect Bilirubin 0.2mg/dl Aspartate Amino Transf (AST/SGOT) 38IU/L Alanine Aminotransferase (ALT/SGPT) 24IU/L Alkaline Phosphatase 85IU/L Troponin I 0.065ng/ml Total Protein 7.2g/dl Albumin 3.6g/dl Globulin 3.60g/dl Albumin/Globulin Ratio 1.00 White Blood Count 3.010^3/ul Red Blood Count 5.1210^6/ul Hemoglobin 13.2g/dl Hematocrit 41.6% Mean Corpuscular Volume 81.3fl Mean Corpuscular Hemoglobin 25.8pg Mean Corpuscular Hemoglobin Concent 31.7g/dl Red Cell Distribution Width 14.4% Platelet Count 67920^3/UL Mean Platelet Volume 10.5fl Neutrophils % % Segmented Neutrophils % (Manual) 56% Band Neutrophils % (Manual) 22% Lymphocytes % (Manual) 11% Monocytes % (Manual) 6% Eosinophils % % Metamyelocytes % (manual) 3% Nucleated Red Blood Cells % 0.0/100WBC Neutrophils # 10^3/ul Neutrophils # (Manual) 1.710^3/ul Band Neutrophils # 0.610^3/ul Absolute Lymphocytes (Manual) 0.310^3/ul Lymphocytes # 0.310^3/ul Monocytes # 0.210^3/ul Absolute Monocytes (Manual) 0.110^3/ul Eosinophils # 10^3/ul Basophils # 0.110^3/ul Metamyelocytes # 0.010^3/ul Prothrombin Time 13.8Sec Prothrombin Time Ratio 1.1 INR International Normalized Ratio 1.06 Activated Partial Thromboplast Time 25.7Sec Urine Color YELLOW Urine Clarity CLEAR Urine pH 6.0 Urine Specific [place] 1.010 Urine Ketones NEGATIVEmg/dL Urine Nitrite NEGATIVEmg/dL Urine Bilirubin NEGATIVEmg/dL Urine Urobilinogen NEGATIVEmg/dL Urine Leukocyte Esterase NEGATIVELeu/ul Urine Hemoglobin NEGATIVEmg/dL Urine Glucose 1+mg/dL Urine Total Protein NEGATIVEmg/dl Current Medications Medications (Trade) Dose Ordered Sig/Tristin Route PRN Reason Start Time Stop Time Status Last Admin Dose Admin Sodium Chloride 1890 ml 1,890 ml BOLUS OVER 2 HOURS STAT IV* 12/06/16 20:07 12/06/16 20:13 DC 12/06/16 20:28 Vancomycin HCl 250 ml @ 125 mls/hr ONCE ONCE IVPB 12/06/16 20:30 12/06/16 22:29 DC 12/06/16 23:00 Piperacillin Sod/ Tazobactam Sod (Zosyn 3.375gm/ 100 ml (Pmx)) 100 ml @ 100 mls/hr ONCE STAT IVPB 12/06/16 20:07 12/06/16 21:06 DC 12/06/16 20:48 Morphine Sulfate 4 mg 4 mg ONCE STAT IV 12/06/16 20:07 12/06/16 20:13 DC 12/06/16 20:28 Sodium Chloride (NS) 1,000 ml @ 1,000 mls/hr Q1H ONCE IV 12/06/16 23:00 12/06/16 23:59 DC 12/06/16 23:00 Procedures/MDM Significant right lower extremity cellulitis with sepsis. This is circumferential and will not be amenable to outpatient therapy. She was given vancomycin and Zosyn and IV fluids to complete 30 cc/kg. Blood cultures were obtained. Patient was given morphine and Zofran. Blood pressure was initially low but responded well to fluids. Pain was improved with morphine. She is going to be admitted by Dr. Patel for further monitoring and treatment. EKG interpretation: Normal sinus rhythm rate of 94, left axis deviation, T-wave inversions in the anteroseptal leads, no ST elevations or depressions concerning for acute ischemia. message and delivery service pricer interpretation: Normal sinus rhythm without arrhythmia, [place] interpretation: I see no acute process, no infiltrate, pulmonary edema, pneumothorax, no fractures. Care timE 35 minutes: This includes treatment of sepsis from severe cellulitis of left lower extremity, careful fluid administration, antibiotic administration , repeat visits patient's bedside to reassess status, review of chart, this does not include any billable procedures. Departure Diagnosis: Primary Impression: Left leg cellulitis Additional Impressions: Sepsis due to cellulitis Renal insufficiency Hypotension Condition: Serious VIKAS NEW DO Dec 07, 2016 01:09
[2016-12-07] MEDS ORDERED: ACETAMINOPHEN 325 MG TAB PO PRN (01:30)
[2016-12-07] MEDS ORDERED: ONDANSETRON 4 MG INJ IV PRN ×2 (01:30→05:00)
[2016-12-07] MEDS ORDERED: SOD CHLORIDE 0.9% 1,000 ML IV SCH (03:00)
[2016-12-07] MEDS ORDERED: morphine 2 MG INJ IV PRN (05:00)
[2016-12-07] MEDS ORDERED: NACL 0.9% 3 ML SYG IV SCH (05:00)
[2016-12-07] MEDS ORDERED: VANCOMYCIN IV PER PHARMACY XX SCH (05:00)
[2016-12-07] MEDS ORDERED: BARIUM SULF 2% 450 ML BTL (BERRY SMOOTHIE) PO ONE (05:00)
[2016-12-07] MEDS: SOD CHLORIDE 0.9% 1,000 ML IV SCH ×2 (05:19→16:29)
[2016-12-07] MEDS ORDERED: DEXTROSE 50% 50 ML SYRINGE IV PRN ×2 (05:30)
[2016-12-07] MEDS ORDERED: GLUCOSE GEL 15 GRAM TUBE PO PRN ×2 (05:30)
[2016-12-07] MEDS ORDERED: GLUCOSE GEL 15 GRAM TUBE BUCCAL PRN (05:30)
[2016-12-07] MEDS ORDERED: GLUCAGON 1 MG INJ IM PRN (05:30)
--- NOTE | 2016-12-07 05:31 | HP ---
Date/Time of Note Date/Time of Note DATE: 12/07/16 TIME: 05:21 Assessment/Plan VTE Prophylaxis VTE Prophylaxis Intervention: SCD's Lines/Catheters IV C[facility]ter Type [facility]from [facility] Saline Lock Assessment/Plan Chief Complaint/Hosp Course This is a 76 year female being admitted to the telemetry floor for: #1 sepsis: Likely secondary to underlying cellulitis of the left lower extremity. Patient received vancomycin from the transferring facility. She also apparently has gram-positive cocci in pairs and clusters on her blood culture at the transferring facility hospital. At the current time will continue vancomycin. Will consult infectious disease for further antibiotic management. Will follow up on further blood cultures from the transfer facility. #2 lactic acidosis: Likely secondary from underlying infection and dehydration. Will continue IV fluid hydration at this time and antibiotics #3 chronic left lower extremity lymphedema: This remains a chronic issue as a result likely from her this remains a chronic issue likely from lymph damage from her chemoradiation. At the current time we will treat this for underlying cellulitis of the area. She was seen by vascular surgery during the previous admission. We may need a consult with them as well. History of diabetes. Will check A1c. Sugars are severely elevated at this time. Will put the patient on sliding scale as well as Lantus. #4. History of cervical cancer, status post-surgery and chemoradiation in 2011. The patient is no longer on any chemotherapy. #5 acute versus chronic kidney injury. Will continue monitor renal function. Renally dose antibiotics. Provide IV fluid hydration. #6 Diabetes: will check an a1c. ISS, hold metformin secondary to lactic acidosis. #6 DVT and GI prolapses on heparin, acid clarence Further treatment strategy will be implemented with clinical course Problems: HPI/ROS Admit Date/Time Admit Date/Time Dec 07, 2016 at 01:29 Hx of Present Illness This 76-year-old female presents for left leg swelling. She went to the [place] ER for confusion and nausea and vomitting. She was seen at another emergency room today with a partly treated her at all and give her Tylenol for her leg pain. The daughter also is present and she said they were " taking too long to do anything for her" so they left the hospital and brought her here. She did receive antibiotics before she left. She has a chronic issue with her legs secondary to damaged lymph nodes from her radiation treatment for her cancer. She is a diabetic on metformin with several days of increasing leg swelling and pain. The pain is circumferential. The patient has chills but no fevers. Her left lower extremity is baseline swollen/edematous compared to the left, but today there was warm and redness noted. The redness has improved since she left the hospital in [place] according to her daughter. allergies: nkda meds: see apr ROS Const: As per HPI Eyes : No pain discharge or redness or change in visual acuity ENT: No pain, sore throat, congestion, congestion, dysphagia or discharge Respiratory: No shortness of breath, cough, sputum, wheezing, or pleuritic pain Cardiovascular: No chest pain, palpitation, PND, or edema GI : As per HPI Genitourinary: No dysuria, hematuria, flank pain , discharge or CVA tenderness Musculoskeletal: No joint pain, back pain, neck pain, restricted range of motion in neck or joints Skin: As per HPI Neuro: No headache, dizziness, syncope, seizure, focal weakness Endocrine: No polyuria, polydipsia, temperature intolerance Psych: No hallucination, depression, anxiety or suicidal ideation PMH/Family/Social Past Medical History 1. Stage II cervical cancer, status post-surgery and chemoradiation in 2012. The patient is not on any chemotherapy at this time, has not been since 2011. hypertension, hyperlipidemia, diabetes, cholesterol, chronic left lower extremity lymphedema Past Surgical History Stage II cervical cancer, status post-surgery and chemoradiation in 2012. Family History Significant Family History: diabetes Social History Alcohol Use: none Smoking Status: Never smoker Drug Use: none Exam/Review of Systems Vital Signs Vitals Vital Signs Date Time Temp Pulse Resp B/P Pulse Ox O2 Delivery O2 Flow Rate FiO2 12/07/16 04:25 94 12/07/16 04:00 100.1 17 138/60 99 12/07/16 01:00 Room Air 12/06/16 20:15 2 Exam Exam General: Lying in bed in no acute distress, she does appear lethargic. HEENT: Atraumatic, normocephalic. The pupils are equal, round and reactive. Extraocular motor are intact Neck: Supple with full range of motion. No rigidity or meningismus Chest: Nontender Lungs: Clear to auscultation bilaterally no crackles rales or wheezing Heart: Normal S1-S2, Regular rhythm and rate. No murmur, S3, or S4 Abdomen: Soft , nontender, nondistended , bowel sounds are present. No guarding no rebound tenderness , No masses or organomegaly. No costovertebral temporal angle mass Extremities: Left lower extremity edema which is chronic according to the patient and the daughter, however there is erythema noted circumferentially, there is warmth trailing from the left lower extremity up to the pelvic area, no underlying crepitus can be appreciated. Neurologic: Patient does appear lethargic, but she is alert and oriented 3. Cranial nerves II to XII intact. Labs Result Diagram: 12/06/16200612/06/161945 Medications Medications Current Medications Sodium Chloride 1,000 ml @ 70 mls/hr [id number] IV Last administered on 04:15; Admin Dose 70 MLS/HR; Start 12/07/16 at 03:00 Sodium Chloride (NS) 1,000 ml @ 80 mls/hr [id number] IV Last administered on 05:19; Admin Dose 80 MLS/HR; Start 12/07/16 at 04:56 Ondansetron HCl (Zofran Inj) 4 mg Q6H PRN IV NAUSEA AND/OR VOMITING; Start at 05:00 Acetaminophen (Tylenol Tab) 650 mg Q6H PRN PO PAIN LEVEL 1-3 OR FEVER; Start 12/07/16 at 05:00 Morphine Sulfate (morphine) 2 mg Q4H PRN IV PAIN LEVEL 7-10; Start 12/07/16 at 05:00 Pantoprazole (Protonix Tab) 40 mg DAILY@06 PO ; Start 12/07/16 at 06:00 Heparin Sodium (Porcine) 5000 unit 5,000 unit Q8 SC ; Start 12/07/16 at 06:00 Vancomycin HCl (Vancocin) 250 ml @ 125 mls/hr Q48H IVPB ; Start 12/07/16 at 23 :00 ADA ARSHAD Dec 07, 2016 05:30
[2016-12-07] MEDS: PANTOPRAZOLE (EC) 40 MG TAB PO SCH (06:44)
[2016-12-07] MEDS: HEPARIN 5,000 UNIT/0.5 ML VIAL SC SCH ×3 (06:52→22:11)
[2016-12-07] MEDS: INSULIN ASPART [NOVOLOG] 3 ML PEN SC SCH ×5 (08:00→21:00)
[2016-12-07 09:32] LABS: ABNORMAL IP MESSAGE 1; HEMATOCRIT 39.2 % (37.0-47.0); HEMOGLOBIN 12.4 g/dl (12.0-16.0); MEAN CORPUSCULAR HEMOGLOBIN 25.7 pg (29.0-33.0); MEAN CORPUSCULAR HGB CONC 31.6 g/dl (32.0-37.0); MEAN CORPUSCULAR VOLUME 81.2 fl (82.0-101.0); PLATELET COUNT 204 10^3/UL (140-415); RED BLOOD COUNT 4.83 10^6/ul (4.20-5.40); RED CELL DISTRIBUTION WIDTH 14.7 % (11.5-14.5); WHITE BLOOD COUNT 11.7 10^3/ul (4.8-10.8)
[2016-12-07 09:37] LABS: POSITIVE DIFF @See below
[2016-12-07 09:50] LABS: ALBUMIN 2.9 g/dl (3.3-4.9); ALBUMIN/GLOBULIN RATIO 0.8; BILIRUBIN,INDIRECT 0.2 mg/dl (0-1.1); BILIRUBIN,TOTAL 0.2 mg/dl (0.2-1.3); CALCIUM 8.3 mg/dl (8.4-10.2); CHOL/HDL RATIO 3.1 RATIO; CREATININE 1.53 mg/dl (0.44-1.00); MAGNESIUM 1.3 mg/dl (1.7-2.5); TOTAL PROTEIN 6.5 g/dl (6.1-8.1)
[2016-12-07 09:54] LABS: POTASSIUM 5.7 mmol/L (3.5-5.1)
--- NOTE | 2016-12-07 09:55 | RADRPT ---
PROCEDURE: CT abdomen and pelvis without contrast. CLINICAL INDICATION: Abdominal pain. TECHNIQUE: CT scan of the abdomen and pelvis without contrast was performed on a multi-slice CT [facility] . Oral contrast was also administered. Sagittal and coronal reformatted images were obtaine d from the axial source images. One or more of the following dose reduction techniques were used: - Automated exposure control. - Adjustment of the mA and/or kV according to patient size. - Use of iterative reconstruction technique. DLP 634.8 mGycm. CTDIvol 11.8 mGy COMPARISON: 07/08/16 FINDINGS: Mild bibasilar atelectasis is present. Coronary artery calcifications are seen in the heart. There is limited evaluation of the solid viscera from the lack of IV contrast. There is continued concentric wall thickening of the distal colon involving the sigmoid colon extend ing down to the anus with surrounding fat stranding of the mesentery and a spiculated appearance of the colonic soft tissue margin. There is also confluent irregular soft tissue thickening seen around the cervix which appears stable. The bladder is collapsed around a Angulo catheter with diffuse irre gular wall thickening of the bladder is well with mild surrounding fat stranding which appears stabl e. There is no evidence of bowel obstruction. Oral contrast extends through the entirety the small b owel and colon. There is no appendicitis. There is no free air or free fluid. There is slight anasarca type appearance of the abdomen and pelvis soft tissues with generalize fat stranding. There is a diminutive right kidney consistent with atrophy. There is a punctate calcification in the left mid kidney which may represent a vascular calcification versus a small nonobstructing stone. T here is no ureteral stone present with no left-sided hydronephrosis. There is uniform density of the liver with no gross focal lesion or biliary ductal dilatation. The gallbladder is distended without surrounding inflammation. The spleen is diminutive. The adrenal glands are within normal limits without mass. The pancreas is moderately atrophic without focal lesion or surrounding inflammatory changes. Ther e are no enlarged lymph nodes. There is aortic atherosclerosis without aneurysmal dilatation. Degenerative changes are seen in t he lumbar spine with no acute osseous abnormality. IMPRESSION: There is stable appearance of diffuse concentric wall thickening of the distal colon extending from the mid sigmoid colon to the rectum along with fat stranding and soft tissue thickening around the c ervix and of the bladder and this could represent postradiation therapy changes. There is no obstruc tion or appendicitis. Diminutive right kidney is consistent with atrophy. Atherosclerotic disease. RPTAT: AA .Zaina Correa MD, MD Date Time Electronically viewed and signed by .Zaina Correa MD, MD on 12/07/2016 09:55 .J/
--- NOTE | 2016-12-07 10:12 | RADRPT ---
PROCEDURE: Extremity CT CLINICAL INDICATION: Cellulitis. Evaluate for subcutaneous gas. TECHNIQUE: Multiplanar CT imaging of the left lower extremity with evaluation of soft tissue and b one algorithm. 4.92 mGyand 454.81 mGy.cm. One or more of the following dose reduction techniques were utilized: Au tomated exposure control, adjustment of the mA and/or kV according to patient size, use of iterative reconstruction technique. COMPARISON: None. FINDINGS: There is diffuse circumferential subcutaneous soft tissue edema/cellulitis from the level of the lef t hip to reflect. This is most pronounced post or laterally from the level of the hip to the knee an d slightly asymmetric laterally below the knee with marked skin thickening. There is no evidence of focal fluid collection or subcutaneous gas to suggest abscess. The fascial planes are well maintaine d. No evidence of fasciitis or necrotizing fasciitis. The study is somewhat limited due to lack of i ntravenous contrast. There is no evidence of cortical irregularity or periosteal elevation to suggest osteomyelitis. No d estructive bone lesion. Visualized intrapelvic contents are grossly unremarkable. Arterial atherosclerotic calcification of the lower extremity. IMPRESSION: 1. Diffuse skin thickening and subcutaneous edema/cellulitis of the left lower extremity. No eviden ce of subcutaneous gas or abnormal fluid collection to suggest abscess or fasciitis/necrotizing. The study is limited due to lack of intravenous contrast. 2. No evidence of osteomyelitis, lytic or blastic destructive bone lesion. 3. No discrete soft tissue mass. 4. Atherosclerotic arterial calcification . RPTAT: HH Physician Higinio Date Time Electronically viewed and signed by Physician Higinio on 12/07/2016 10:12 MIKAYLA/
--- NOTE | 2016-12-07 10:43 | PN ---
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 weight based insulin here Subjective 24 Hr Interval Summary Free Text/Dictation feels ok. Exam/Review of Systems Vital Signs Vitals Vital Signs Date Time Temp Pulse Resp B/P Pulse Ox O2 Delivery O2 Flow Rate FiO2 12/07/16 08:13 93 12/07/16 08:09 98.0 19 115/57 93 12/07/16 01:00 Room Air 12/06/16 20:15 2 Intake and Output 12/06/16 12/06/16 12/07/16 15:00 23:00 07:00 Intake Total 40 ml Balance 40 ml Exam nad no mrg lungs clear abd soft no rashes Blood cultures from [facility] (under name GEOVANNA PARMAR, ) [phone] GPCs 2/2 pairs and chains-->looks like beta strep Results Result Diagram: 12/07/16 0825 12/07/16 0825 Results 24 hrs Laboratory Tests Test 12/06/16 19:46 12/06/16 20:07 12/06/16 20:47 12/07/16 00:00 Sodium Level 137 Potassium Level 3.4 L Chloride Level 99 Carbon Dioxide Level 24 Anion Gap 17 H Blood Urea Nitrogen 24 H Creatinine 1.79 H Glucose Level 201 Lactic Acid Level 5.0 *H 4.0 *H Calcium Level 8.9 Total Bilirubin 0.2 Direct Bilirubin 0.00 Indirect Bilirubin 0.2 Aspartate Amino Transf (AST/SGOT) 38 Alanine Aminotransferase (ALT/SGPT) 24 Alkaline Phosphatase 85 Troponin I 0.065 Total Protein 7.2 Albumin 3.6 Globulin 3.60 H Albumin/Globulin Ratio 1.00 White Blood Count 3.0 #L Red Blood Count 5.12 # Hemoglobin 13.2 # Hematocrit 41.6 # Mean Corpuscular Volume 81.3 L Mean Corpuscular Hemoglobin 25.8 L Mean Corpuscular Hemoglobin Concent 31.7 L Red Cell Distribution Width 14.4 Platelet Count 244 Mean Platelet Volume 10.5 H Neutrophils % Segmented Neutrophils % (Manual) 56 Band Neutrophils % (Manual) 22 H Lymphocytes % (Manual) 11 L Monocytes % (Manual) 6 Eosinophils % Metamyelocytes % (manual) 3 H Nucleated Red Blood Cells % 0.0 Neutrophils # Neutrophils # (Manual) 1.7 Band Neutrophils # 0.6 Absolute Lymphocytes (Manual) 0.3 L Lymphocytes # 0.3 L Monocytes # 0.2 L Absolute Monocytes (Manual) 0.1 L Eosinophils # Basophils # 0.1 Metamyelocytes # 0.0 Prothrombin Time 13.8 Prothrombin Time Ratio 1.1 INR International Normalized Ratio 1.06 Activated Partial Thromboplast Time 25.7 Urine Color YELLOW Urine Clarity CLEAR Urine pH 6.0 Urine Specific [place] 1.010 Urine Ketones NEGATIVE Urine Nitrite NEGATIVE Urine Bilirubin NEGATIVE Urine Urobilinogen NEGATIVE Urine Leukocyte Esterase NEGATIVE Urine Hemoglobin NEGATIVE Urine Glucose 1+ H Urine Total Protein NEGATIVE Test 12/07/16 02:52 12/07/16 08:18 12/07/16 08:25 12/07/16 08:30 Lactic Acid Level 3.9 *H 3.9 *H White Blood Count 11.7 #H Red Blood Count 4.83 Hemoglobin 12.4 Hematocrit 39.2 Mean Corpuscular Volume 81.2 L Mean Corpuscular Hemoglobin 25.7 L Mean Corpuscular Hemoglobin Concent 31.6 L Red Cell Distribution Width 14.7 H Platelet Count 204 Mean Platelet Volume 11.0 H Neutrophils % Lymphocytes % Monocytes % Eosinophils % Basophils % Nucleated Red Blood Cells % 0.0 Neutrophils # Lymphocytes # Monocytes # Eosinophils # Basophils # Nucleated Red Blood Cells # Sodium Level 133 L Potassium Level 5.7 #H Chloride Level 101 Carbon Dioxide Level 23 Anion Gap 15 Blood Urea Nitrogen 27 H Creatinine 1.53 H Glucose Level 138 # Calcium Level 8.3 L Magnesium Level 1.3 L Total Bilirubin 0.2 Direct Bilirubin 0.00 Indirect Bilirubin 0.2 Aspartate Amino Transf (AST/SGOT) 47 H Alanine Aminotransferase (ALT/SGPT) 14 Alkaline Phosphatase 56 Total Protein 6.5 Albumin 2.9 L Globulin 3.60 H Albumin/Globulin Ratio 0.80 Triglycerides Level 103 Cholesterol Level 155 LDL Cholesterol, Calculated 84 HDL Cholesterol 50 Cholesterol/HDL Ratio 3.1 Bedside Glucose 136 Medications Medications Current Medications Sodium Chloride (NS) 1,000 ml @ 80 mls/hr [id number] IV Last administered on 05:19; Admin Dose 80 MLS/HR; Start 12/07/16 at 04:56 Ondansetron HCl (Zofran Inj) 4 mg Q6H PRN IV NAUSEA AND/OR VOMITING; Start at 05:00 Acetaminophen (Tylenol Tab) 650 mg Q6H PRN PO PAIN LEVEL 1-3 OR FEVER; Start 12/07/16 at 05:00 Morphine Sulfate (morphine) 2 mg Q4H PRN IV PAIN LEVEL 7-10 Last administered on 12/07/16 06:44; Admin Dose 2 MG; Start 12/07/16 at 05:00 Pantoprazole (Protonix Tab) 40 mg DAILY@06 PO Last administered on 12/07/16 06:44; Admin Dose 40 MG; Start 12/07/16 at 06:00 Heparin Sodium (Porcine) 5000 unit 5,000 unit Q8 SC Last administered on 06:52; Admin Dose 5,000 UNIT; Start 12/07/16 at 06:00 Vancomycin HCl (Vancocin) 250 ml @ 125 mls/hr Q48H IVPB ; Start 12/07/16 at 23 :00 Diagnostic Test (Pha) (Accu-Chek) 1 ea 02 XX ; Start 12/08/16 at 02:00 Miscellaneous Information 1 ea NOTE XX ; Start 12/07/16 at 05:30 Glucose (Glutose) 15 gm Q15M PRN PO DECREASED GLUCOSE; Start 12/07/16 at 05:30 Glucose (Glutose) 22.5 gm Q15M PRN PO DECREASED GLUCOSE; Start 12/07/16 at 05: 30 Dextrose (D50w Syringe) 25 ml Q15M PRN IV DECREASED GLUCOSE; Start 12/07/16 at 05:30 Dextrose (D50w Syringe) 50 ml Q15M PRN IV DECREASED GLUCOSE; Start 12/07/16 at 05:30 Glucagon (Glucagen) 1 mg Q15M PRN IM DECREASED GLUCOSE; Start 12/07/16 at 05: 30 Glucose (Glutose) 15 gm Q15M PRN BUCCAL DECREASED GLUCOSE; Start 12/07/16 at 05:30 ANTHONY AVILES MD Dec 07, 2016 10:43
[2016-12-07 11:43] LABS: ANISOCYTOSIS 1+ (0-0); BURR CELLS 1+ (0-0); GIANT THROMBO% (M) 1 % (0-0); METAMYELOCYTES %M 9 % (0-0); MONOCYTES % (M) 2 % (0-11); MYELOCYTES % (M) 1 % (0-0); PLATELET ESTIMATE NORMAL; POLYCHROMASIA 1+ (0-0)
--- NOTE | 2016-12-07 14:27 | RADRPT ---
PROCEDURE: US left lower extremity veins. CLINICAL INDICATION: Left leg pain and swelling. TECHNIQUE: Multiple longitudinal and transverse images of the left lower extremity veins were obta ined with franks scale and color Doppler imaging. The common femoral vein, femoral vein, and popliteal vein were evaluated. 2D grayscale measurements with compression sonography, pulsed Doppler, color D oppler, and pulsed Doppler with augmentation. COMPARISON: No prior studies are available for comparison. FINDINGS: The left common femoral, femoral and popliteal veins are normally compressible throughout. Color fl ow demonstrates normal filling of the vessels. Normal waveforms are visualized and there is normal response to augmentation. IMPRESSION: 1. No evidence of deep vein thrombosis involving the left lower extremity. RPTAT: QQ .Brodie Gutierrez MD, MD Date Time Electronically viewed and signed by .Brodie Gutierrez MD, on 12/07/2016 14:27 .R/
[2016-12-07] MEDS: ACETAMINOPHEN 325 MG TAB PO PRN (16:44)
[2016-12-07] MEDS ORDERED: VANCOMYCIN 1 GM in NS 250 ML IVPB SCH (23:00)
[2016-12-08] VITALS (9 sets, daily range): BP systolic 106–147; BP diastolic 53–65; PULSE 84–96; RESP 17–18
[2016-12-08] MEDS: ACCU-CHEK XX SCH (02:00)
[2016-12-08] MEDS ORDERED: ACCU-CHEK XX SCH ×2 (02:00)
--- NOTE | 2016-12-08 02:31 | CONS ---
DATE OF ADMISSION: 12/07/2016 DATE OF CONSULTATION: 12/07/2016 TYPE OF CONSULTATION: Infectious Disease. REASON FOR CONSULTATION: Antibiotic management. HISTORY OF PRESENT ILLNESS: Shakira Byrd is a 76-year-old female who comes in with cellulitis and is being seen for antibiotic management. Her past problems include: 1. History of cervical cancer status post surgery and chemotherapy in 2011. 2. Hypertension. 3. Hyperlipidemia. 4. Adult-onset diabetes mellitus. 5. Hypercholesterolemia. 6. Chronic left lower extremity lymphedema. Acutely, the patient presents with left leg swelling. She went to the [place] emergency room with confusion, nausea and vomiting. She was seen on the today at another emergency room and given Tylenol. She has chronic issues with her legs secondary to damaged lymph nodes and radiation thera py for her cervical cancer. She has several days of increased leg swelling and pain. The pain is a ll over the area circumferentially. She has chills, but no fevers. Today her leg is warm and red. PAST MEDICAL HISTORY: Operations as outlined. Status post surgery for cervical cancer stage II. FAMILY HISTORY: Noncontributory except for diabetes. SOCIAL HISTORY: She does not smoke, drink or abuse drugs. ALLERGIES: NONE TO PENICILLIN, SULFA OR FOODS. MEDICATIONS: Per chart. REVIEW OF SYSTEMS: As per HPI. PHYSICAL EXAMINATION: GENERAL: The patient is lethargic but arousable, no acute distress. VITAL SIGNS: T-max 100.1, otherwise within normal limits. SKIN: Without generalized rash. HEENT: Within normal limits. NECK: Supple. LYMPH NODES: None palpable. CHEST: Decreased breath sounds at the bases. HEART: Without murmur or gallop. ABDOMEN: Soft, nontender, nondistended, without organosplenomegaly or masses. EXTREMITIES: She has left lower extremity edema which is chronic. She also has circumferential elham thema with warmth on the left lower extremity up to the pelvic area. RECTAL AND GENITAL: Deferred. NEUROLOGIC: No focal neurological abnormality. ANCILLARY LABORATORY DATA: White count is 3000, H and H of 13.2 and 41.6, platelet count 244,000. BUN and creatinine 24/1.79. HOSPITAL COURSE: The patient was started on vancomycin. A chest x-ray shows no acute infiltrates. Lower extremity CT shows diffuse skin thickening and subcutaneous edema and cellulitis, left lower extremity. No evidence for subcutaneous gas. There is no abnormal fluid collection to suggest absc ess or fasciitis. The study is limited due to lack of IV contrast. No evidence of osteomyelitis, n o discrete soft tissue mass, atherosclerotic arterial calcification. CT scan of the abdomen and pel vis: Stable appearance with diffuse concentric wall thickening of the distal colon extending from t he mid sigmoid colon to the rectum along with fat stranding and soft tissue thickening around the ce rvix and of the bladder, postradiation changes. IMPRESSION AND PLAN: The patient presents now with acute cellulitis on top of chronic lower extremi ty edema and this is related to her cervical cancer with radiation. Her white count today is 11.7. BUN and creatinine 27/1.53. We are going to continue her on her vancomycin and if she does not res pond will add Levaquin to her regimen. She got 1 dose of Zosyn in the emergency room. I will dicta te my findings to the hospitalist. Dictated By: SHANTA JAEGER MD, JD/NICOL Conf#: [id number] DID#: [id number]
[2016-12-08] MEDS: SOD CHLORIDE 0.9% 1,000 ML IV SCH ×2 (05:52→17:16)
[2016-12-08] MEDS: PANTOPRAZOLE (EC) 40 MG TAB PO SCH (05:52)
[2016-12-08] MEDS: HEPARIN 5,000 UNIT/0.5 ML VIAL SC SCH ×3 (05:56→22:10)
[2016-12-08] MEDS: INSULIN ASPART [NOVOLOG] 3 ML PEN SC SCH ×7 (07:48→21:00)
[2016-12-08] MEDS: INSULIN GLARGINE [LANtus] 3 ML PEN SC SCH (07:51)
[2016-12-08] MEDS: ACETAMINOPHEN 325 MG TAB PO PRN ×2 (08:33→23:16)
[2016-12-08 08:56] LABS: CREATININE 1.46 mg/dl (0.44-1.00)
--- NOTE | 2016-12-08 18:24 | PN ---
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 would call micro lab at OSH in AM. if S to quinolones, would treat with 2 weeks of PO levoflox wound care consult DM2: a1c 9.5, only on metformin at home. weight based insulin here Subjective 24 Hr Interval Summary Free Text/Dictation feeling better Exam/Review of Systems Vital Signs Vitals Vital Signs Date Time Temp Pulse Resp B/P Pulse Ox O2 Delivery O2 Flow Rate FiO2 12/08/16 16:20 97.8 96 18 147/65 89 12/07/16 01:00 Room Air 12/06/16 20:15 2 Intake and Output 12/07/16 12/07/16 12/08/16 15:00 23:00 07:00 Intake Total 750 ml 520 ml Output Total 550 ml Balance 200 ml 520 ml Exam nad no mrg lungs clear abd soft LLE with sig improvement in erythema Blood cultures from [facility] (under name SCOTTKishore RIGGINSGerman, ) [phone] beta hemolytic group B strep 2/2 (sensies pending) Results Result Diagram: 12/07/16 0825 12/08/16 0725 Results 24 hrs Laboratory Tests Test 12/07/16 21:12 12/08/16 07:25 12/08/16 07:47 12/08/16 11:42 Bedside Glucose 98 96 127 Blood Urea Nitrogen 27 H Creatinine 1.46 H Test 12/08/16 17:11 Bedside Glucose 125 Medications Medications Current Medications Sodium Chloride (NS) 1,000 ml @ 80 mls/hr [id number] IV Last administered on t 17:16; Admin Dose 80 MLS/HR; Start 12/07/16 at 04:56 Ondansetron HCl (Zofran Inj) 4 mg Q6H PRN IV NAUSEA AND/OR VOMITING; Start at 05:00 Acetaminophen (Tylenol Tab) 650 mg Q6H PRN PO PAIN LEVEL 1-3 OR FEVER Last administered on 12/08/16 08:33; Admin Dose 650 MG; Start 12/07/16 at 05:00 Morphine Sulfate (morphine) 2 mg Q4H PRN IV PAIN LEVEL 7-10 Last administered on 12/07/16 06:44; Admin Dose 2 MG; Start 12/07/16 at 05:00 Pantoprazole (Protonix Tab) 40 mg DAILY@06 PO Last administered on 12/08/16 05:52; Admin Dose 40 MG; Start 12/07/16 at 06:00 Heparin Sodium (Porcine) 5000 unit 5,000 unit Q8 SC Last administered on 13:46; Admin Dose 5,000 UNIT; Start 12/07/16 at 06:00 Vancomycin HCl (Vancocin) 250 ml @ 125 mls/hr Q48H IVPB Last administered on 12/07/16 23:00; Admin Dose 125 MLS/HR; Start 12/07/16 at 23:00 Miscellaneous Information 1 ea NOTE XX ; Start 12/07/16 at 05:30 Glucose (Glutose) 15 gm Q15M PRN PO DECREASED GLUCOSE; Start 12/07/16 at 05:30 Glucose (Glutose) 22.5 gm Q15M PRN PO DECREASED GLUCOSE; Start 12/07/16 at 05: 30 Dextrose (D50w Syringe) 25 ml Q15M PRN IV DECREASED GLUCOSE; Start 12/07/16 at 05:30 Dextrose (D50w Syringe) 50 ml Q15M PRN IV DECREASED GLUCOSE; Start 12/07/16 at 05:30 Glucagon (Glucagen) 1 mg Q15M PRN IM DECREASED GLUCOSE; Start 12/07/16 at 05: 30 Glucose (Glutose) 15 gm Q15M PRN BUCCAL DECREASED GLUCOSE; Start 12/07/16 at 05:30 Diagnostic Test (Pha) (Accu-Chek) 1 ea 02 XX ; Start 12/08/16 at 02:00 Insulin Glargine (Lantus) 10 unit DAILY@08 SC Last administered on 12/08/16 07:51; Admin Dose 10 UNIT; Start 12/08/16 at 08:00 Miscellaneous Information (*Rx Drug Level Order Reminder*) VANCO RANDOM W/ AM LABS... ONCE ONCE XX ; Start 12/09/16 at 05:00; Stop 12/09/16 at 05:01 ANTHONY AVILES MD Dec 08, 2016 18:24
--- NOTE | 2016-12-08 19:23 | CONS ---
Date/Time of Note Date/Time of Note DATE: 12/08/16 TIME: 19:14 Consult Date/Type/Reason Admit Date/Time Dec 07, 2016 at 01:29 Initial Consult Date Type of Consultation: ID Objective Vital Signs Date Time Temp Pulse Resp B/P Pulse Ox O2 Delivery O2 Flow Rate FiO2 12/08/16 16:20 97.8 96 18 147/65 89 12/07/16 01:00 Room Air 12/06/16 20:15 2 Intake and Output 12/07/16 12/07/16 12/08/16 15:00 23:00 07:00 Intake Total 750 ml 520 ml Output Total 550 ml Balance 200 ml 520 ml Results/Medications Result Diagram: 12/07/16 0825 12/08/16 0725 Results 24 hrs Laboratory Tests Test 12/07/16 21:12 12/08/16 07:25 12/08/16 07:47 12/08/16 11:42 Bedside Glucose 98 96 127 Blood Urea Nitrogen 27 H Creatinine 1.46 H Test 12/08/16 17:11 Bedside Glucose 125 Medications Current Medications Sodium Chloride (NS) 1,000 ml @ 80 mls/hr [id number] IV Last administered on 17:16; Admin Dose 80 MLS/HR; Start 12/07/16 at 04:56 Ondansetron HCl (Zofran Inj) 4 mg Q6H PRN IV NAUSEA AND/OR VOMITING; Start at 05:00 Acetaminophen (Tylenol Tab) 650 mg Q6H PRN PO PAIN LEVEL 1-3 OR FEVER Last administered on 12/08/16 08:33; Admin Dose 650 MG; Start 12/07/16 at 05:00 Morphine Sulfate (morphine) 2 mg Q4H PRN IV PAIN LEVEL 7-10 Last administered on 12/07/16 06:44; Admin Dose 2 MG; Start 12/07/16 at 05:00 Pantoprazole (Protonix Tab) 40 mg DAILY@06 PO Last administered on 12/08/16 05:52; Admin Dose 40 MG; Start 12/07/16 at 06:00 Heparin Sodium (Porcine) 5000 unit 5,000 unit Q8 SC Last administered on 13:46; Admin Dose 5,000 UNIT; Start 12/07/16 at 06:00 Vancomycin HCl (Vancocin) 250 ml @ 125 mls/hr Q48H IVPB Last administered on 12/07/16 23:00; Admin Dose 125 MLS/HR; Start 12/07/16 at 23:00 Miscellaneous Information 1 ea NOTE XX ; Start 12/07/16 at 05:30 Glucose (Glutose) 15 gm Q15M PRN PO DECREASED GLUCOSE; Start 12/07/16 at 05:30 Glucose (Glutose) 22.5 gm Q15M PRN PO DECREASED GLUCOSE; Start 12/07/16 at 05: 30 Dextrose (D50w Syringe) 25 ml Q15M PRN IV DECREASED GLUCOSE; Start 12/07/16 at 05:30 Dextrose (D50w Syringe) 50 ml Q15M PRN IV DECREASED GLUCOSE; Start 12/07/16 at 05:30 Glucagon (Glucagen) 1 mg Q15M PRN IM DECREASED GLUCOSE; Start 12/07/16 at 05: 30 Glucose (Glutose) 15 gm Q15M PRN BUCCAL DECREASED GLUCOSE; Start 12/07/16 at 05:30 Diagnostic Test (Pha) (Accu-Chek) 1 ea 02 XX ; Start 12/08/16 at 02:00 Insulin Glargine (Lantus) 10 unit DAILY@08 SC Last administered on 12/08/16 07:51; Admin Dose 10 UNIT; Start 12/08/16 at 08:00 Miscellaneous Information (*Rx Drug Level Order Reminder*) VANCO RANDOM W/ AM LABS... ONCE ONCE XX ; Start 12/09/16 at 05:00; Stop 12/09/16 at 05:01 Assessment/Plan Chief Complaint/Hosp Course No acute changes, afebrile, nad Abx: Vancomycin GENERAL: The patient is lethargic but arousable, no acute distress. SKIN: Without generalized rash. HEENT: Within normal limits. NECK: Supple. LYMPH NODES: None palpable. CHEST: Decreased breath sounds at the bases. HEART: Without murmur or gallop. ABDOMEN: Soft, nontender, nondistended, BT present EXTREMITIES: She has left lower extremity edema which is chronic. She also has circumferential erythema with warmth on the left lower extremity up to the pelvic area. NEUROLOGIC: No focal neurological abnormality. Assessment: 1. Beta hemolytic group B strep bacteremia==> per report from another facility, repeat bld cx neg 2. LLE cellulitis/chronic lymphedema 3. History of cervical cancer status post surgery and chemotherapy in 2011. 2. Hypertension. 3. Hyperlipidemia. 4. Adult-onset diabetes mellitus. Plan: Stable, bld cx repeated here negative, continue abx, LLE elevation DW staff/pt/family Problems: MAXIME BLACKWELL NP Dec 08, 2016 19:23
[2016-12-09] VITALS (14 sets, daily range): BP systolic 130–168; BP diastolic 3–81; PULSE 73–148; RESP 17–20
[2016-12-09] MEDS: ACCU-CHEK XX SCH (02:00)
[2016-12-09] MEDS ORDERED: ACETAMINOPHEN 325 MG TAB PO ONE (03:30)
[2016-12-09] MEDS ORDERED: hydrALAzine 20 MG INJ IV PRN (03:30)
[2016-12-09] MEDS: CEFEPIME 1GM/50 ML (PMX) 50 ML IVPB SCH ×3 (06:30→22:03)
[2016-12-09] MEDS: SOD CHLORIDE 0.9% 1,000 ML IV SCH (06:31)
[2016-12-09] MEDS: PANTOPRAZOLE (EC) 40 MG TAB PO SCH (06:31)
[2016-12-09] MEDS: HEPARIN 5,000 UNIT/0.5 ML VIAL SC SCH ×3 (06:37→22:07)
[2016-12-09] MEDS: INSULIN ASPART [NOVOLOG] 3 ML PEN SC SCH ×7 (08:00→22:08)
[2016-12-09] MEDS: INSULIN GLARGINE [LANtus] 3 ML PEN SC SCH (09:06)
[2016-12-09] MEDS ORDERED: VANCOMYCIN 1 GM in NS 250 ML IVPB SCH (11:00)
--- NOTE | 2016-12-09 12:36 | PN ---
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 1. LE cellulitis - cont Cefepime and vanc for now, monitor CBC - try to call micro lab at OSH in AM. if S to quinolones, would treat with 2 weeks of PO levoflox - f/u wound care consult rec's - consider PT consult 2. DM2: - a1c 9.5, only on metformin at home. - continue lantus and ISS 3. History of cervical cancer, status post-surgery and chemoradiation in 2011. The patient is no longer on any chemotherapy. - monitor for now 4. chronic left lower extremity lymphedema: This remains a chronic issue as a result likely from her this remains a chronic issue likely from lymph damage from her chemoradiation. - continue to tx cellulitis of the area. She was seen by vascular surgery during the previous admission. We may need a consult with them as well if does not improve. Problems: Exam/Review of Systems Vital Signs Vitals Vital Signs Date Time Temp Pulse Resp B/P Pulse Ox O2 Delivery O2 Flow Rate FiO2 12/09/16 12:00 75 12/09/16 11:33 98.0 19 144/67 99 12/07/16 01:00 Room Air 12/06/16 20:15 2 Intake and Output 12/08/16 12/08/16 12/09/16 15:00 23:00 07:00 Intake Total 1480 ml 550 ml Balance 1480 ml 550 ml Exam nad no mrg lungs clear abd soft LLE with some + erythema Results Result Diagram: 12/07/16 0825 12/08/16 0725 Results 24 hrs Laboratory Tests Test 12/08/16 17:11 12/08/16 22:03 12/09/16 07:05 12/09/16 08:43 Bedside Glucose 125 138 117 Random Vancomycin Level 10.8 Medications Medications Current Medications Sodium Chloride (NS) 1,000 ml @ 80 mls/hr [id number] IV Last administered on 06:31; Admin Dose 80 MLS/HR; Start 12/07/16 at 04:56 Ondansetron HCl (Zofran Inj) 4 mg Q6H PRN IV NAUSEA AND/OR VOMITING; Start at 05:00 Acetaminophen (Tylenol Tab) 650 mg Q6H PRN PO PAIN LEVEL 1-3 OR FEVER Last administered on 12/08/16 23:16; Admin Dose 650 MG; Start 12/07/16 at 05:00 Morphine Sulfate (morphine) 2 mg Q4H PRN IV PAIN LEVEL 7-10 Last administered on 12/07/16 06:44; Admin Dose 2 MG; Start 12/07/16 at 05:00 Pantoprazole (Protonix Tab) 40 mg DAILY@06 PO Last administered on 12/09/16 06:31; Admin Dose 40 MG; Start 12/07/16 at 06:00 Heparin Sodium (Porcine) (Heparin (5000 Units/0.5 ml)) 5,000 unit Q8 SC Last administered on 12/09/16 06:37; Admin Dose 5,000 UNIT; Start 12/07/16 at 06: 00 Miscellaneous Information 1 ea NOTE XX ; Start 12/07/16 at 05:30 Glucose (Glutose) 15 gm Q15M PRN PO DECREASED GLUCOSE; Start 12/07/16 at 05:30 Glucose (Glutose) 22.5 gm Q15M PRN PO DECREASED GLUCOSE; Start 12/07/16 at 05: 30 Dextrose (D50w Syringe) 25 ml Q15M PRN IV DECREASED GLUCOSE; Start 12/07/16 at 05:30 Dextrose (D50w Syringe) 50 ml Q15M PRN IV DECREASED GLUCOSE; Start 12/07/16 at 05:30 Glucagon (Glucagen) 1 mg Q15M PRN IM DECREASED GLUCOSE; Start 12/07/16 at 05: 30 Glucose (Glutose) 15 gm Q15M PRN BUCCAL DECREASED GLUCOSE; Start 12/07/16 at 05:30 Diagnostic Test (Pha) (Accu-Chek) 1 ea 02 XX ; Start 12/08/16 at 02:00 Insulin Glargine (Lantus) 10 unit DAILY@08 SC Last administered on 12/09/16 09:06; Admin Dose 10 UNIT; Start 12/08/16 at 08:00 Hydralazine HCl 10 mg 10 mg Q4H PRN IV HYPERTENSION; Start 12/09/16 at 03:30 Cefepime HCl 50 ml @ 100 mls/hr Q12 IVPB Last administered on 12/09/16 09:07 ; Admin Dose 100 MLS/HR; Start 12/09/16 at 04:30 Vancomycin HCl (Vancocin) 250 ml @ 125 mls/hr Q36H IVPB Last administered on 12/09/16 12:17; Admin Dose 125 MLS/HR; Start 12/09/16 at 11:00 RANDY WETZEL Dec 09, 2016 12:36
--- NOTE | 2016-12-09 12:48 | CONS ---
Date/Time of Note Date/Time of Note DATE: 12/09/16 TIME: 12:46 Consult Date/Type/Reason Admit Date/Time Dec 07, 2016 at 01:29 Type of Consultation: ID Objective Vital Signs Date Time Temp Pulse Resp B/P Pulse Ox O2 Delivery O2 Flow Rate FiO2 12/09/16 12:00 75 12/09/16 11:33 98.0 19 144/67 99 12/07/16 01:00 Room Air 12/06/16 20:15 2 Intake and Output 12/08/16 12/08/16 12/09/16 15:00 23:00 07:00 Intake Total 1480 ml 550 ml Balance 1480 ml 550 ml Results/Medications Result Diagram: 12/07/16 0825 12/08/16 0725 Results 24 hrs Laboratory Tests Test 12/08/16 17:11 12/08/16 22:03 12/09/16 07:05 12/09/16 08:43 Bedside Glucose 125 138 117 Random Vancomycin Level 10.8 Test 12/09/16 12:14 Bedside Glucose 165 Medications Current Medications Sodium Chloride (NS) 1,000 ml @ 80 mls/hr [id number] IV Last administered on 06:31; Admin Dose 80 MLS/HR; Start 12/07/16 at 04:56 Ondansetron HCl (Zofran Inj) 4 mg Q6H PRN IV NAUSEA AND/OR VOMITING; Start at 05:00 Acetaminophen (Tylenol Tab) 650 mg Q6H PRN PO PAIN LEVEL 1-3 OR FEVER Last administered on 12/08/16 23:16; Admin Dose 650 MG; Start 12/07/16 at 05:00 Morphine Sulfate (morphine) 2 mg Q4H PRN IV PAIN LEVEL 7-10 Last administered on 12/07/16 06:44; Admin Dose 2 MG; Start 12/07/16 at 05:00 Pantoprazole (Protonix Tab) 40 mg DAILY@06 PO Last administered on 12/09/16 06:31; Admin Dose 40 MG; Start 12/07/16 at 06:00 Heparin Sodium (Porcine) (Heparin (5000 Units/0.5 ml)) 5,000 unit Q8 SC Last administered on 12/09/16 06:37; Admin Dose 5,000 UNIT; Start 12/07/16 at 06: 00 Miscellaneous Information 1 ea NOTE XX ; Start 12/07/16 at 05:30 Glucose (Glutose) 15 gm Q15M PRN PO DECREASED GLUCOSE; Start 12/07/16 at 05:30 Glucose (Glutose) 22.5 gm Q15M PRN PO DECREASED GLUCOSE; Start 12/07/16 at 05: 30 Dextrose (D50w Syringe) 25 ml Q15M PRN IV DECREASED GLUCOSE; Start 12/07/16 at 05:30 Dextrose (D50w Syringe) 50 ml Q15M PRN IV DECREASED GLUCOSE; Start 12/07/16 at 05:30 Glucagon (Glucagen) 1 mg Q15M PRN IM DECREASED GLUCOSE; Start 12/07/16 at 05: 30 Glucose (Glutose) 15 gm Q15M PRN BUCCAL DECREASED GLUCOSE; Start 12/07/16 at 05:30 Diagnostic Test (Pha) (Accu-Chek) 1 ea 02 XX ; Start 12/08/16 at 02:00 Insulin Glargine (Lantus) 10 unit DAILY@08 SC Last administered on 12/09/16 09:06; Admin Dose 10 UNIT; Start 12/08/16 at 08:00 Hydralazine HCl 10 mg 10 mg Q4H PRN IV HYPERTENSION; Start 12/09/16 at 03:30 Cefepime HCl 50 ml @ 100 mls/hr Q12 IVPB Last administered on 12/09/16 09:07 ; Admin Dose 100 MLS/HR; Start 12/09/16 at 04:30 Vancomycin HCl (Vancocin) 250 ml @ 125 mls/hr Q36H IVPB Last administered on 12/09/16 12:17; Admin Dose 125 MLS/HR; Start 12/09/16 at 11:00 Assessment/Plan Chief Complaint/Hosp Course No acute changes, alert, feels better, afebrile, nad Abx: Vancomycin, Cefepime GENERAL: The patient is lethargic but arousable, no acute distress. SKIN: Without generalized rash. HEENT: Within normal limits. NECK: Supple. LYMPH NODES: None palpable. CHEST: Decreased breath sounds at the bases. HEART: Without murmur or gallop. ABDOMEN: Soft, nontender, nondistended, BT present EXTREMITIES: She has left lower extremity edema which is chronic. She also has circumferential erythema with warmth on the left lower extremity up to the pelvic area. NEUROLOGIC: No focal neurological abnormality. Assessment: 1. Beta hemolytic group B strep bacteremia==> per report from another facility, repeat bld cx neg 2. LLE cellulitis/chronic lymphedema 3. History of cervical cancer status post surgery and chemotherapy in 2011. 2. Hypertension. 3. Hyperlipidemia. 4. Adult-onset diabetes mellitus. Plan: Remains stable, bld cx repeated here negative, LLE looks much better, continue abx, LLE elevation, check 2D ECHO, anticipate dc on IV Rocephin or PO Zyvox to complete 2 weeks abx, f/u labs in am DW staff/pt/family Problems: MAXIME BLACKWELL NP Dec 09, 2016 12:48
--- NOTE | 2016-12-09 19:55 | RADRPT ---
Echocardiogram Report Patient Name: PATRIZIA CAMPBELL Gender: Female Date: 1940 Study Date: 09-Dec-2016 [employer] Machine Operator: SANG Location: [id number] Ref. Physician: MAXIME BLACKWELL Quality: Good Procedures: Transthoracic echocardiogram with complete 2D, M-Mode, and doppler examination. Indications: Endocarditis. 2D/M Mode Doppler Measurement Value Normal Ranges Measurement Value Normal Ranges AoR Diam MM 3.0 cm INGRIS Vmax 2.7 cm2 LA/Ao MM 1.3 INGRIS VTI 2.7 cm2 LA Dimen MM 3.8 cm AV Peak Kingsley 1.1 m/sec LVIDd 2D 5.0 3.5 - 5.6 cm AV Peak PG 4.9 mmHg LVIDs 2D 3.4 2.1 - 4.1 cm LVOT Peak Kingsley 1.0 m/sec LVPWd 2D 1.0 0.6 - 1.1 cm LVOT Peak PG 3.9 mmHg IVSd 2D 1.1 0.6 - 1.1 cm MV E Peak Kingsley 0.8 m/sec EDV 2D 119.4 cm3 MV A Peak Kingsley 1.1 m/sec ESV 2D 40.2 cm3 MV E/A 0.7 LVOT Diam 1.9 cm MV Decel Time 143 msec MV Decel Taney 5 MV E/A 0.7 TR Peak Kingsley 2.9 m/sec TR Peak PG 34.1 mmHg RVSP 37.0 mmHg RA Pressure 3.0 Findings Left Ventricle: Normal left ventricular systolic function. Normal left ventricular cavity size. Normal left ventricular wall thickness. Mild left ventricular systolic dysfunction. Ejection fraction is visually estimated at 4550 %. These segments of the LV are hypokinetic apex. Right Ventricle: Normal right ventricular size. Normal right ventricular systolic function. Left Atrium: The left atrium is normal in size. Right Atrium: The right atrium is normal in size. Atrial Septum: Normal atrial septum. Mitral Valve: Normal appearance of the mitral valve. Normal appearance and function of the mitral valve. Mild mitral annular calcification. Trace mitral regurgitation. Aortic Valve: Normal appearance of the aortic valve. No significant aortic stenosis or insufficiency. Normal trileaflet aortic valve structure. Tricuspid Valve: Normal appearance and function of the tricuspid valve. Estimated peak PA systolic pressure 37 mmHg. Pulmonic Valve: Normal pulmonic valve appearance. There is trace pulmonic regurgitation. Pericardium: Normal pericardium with no significant pericardial effusion. Aorta: Not well visualized. IVC: Normal size and normal respiratory collapse visually consistent with normal right atrial pressure. Conclusions 1.Technically difficult echo with limited visualization. 2.Normal left ventricular systolic function. Normal left ventricular cavity size. Normal left ventricular wall thickness. Mild left ventricular systolic dysfunction. Ejection fraction is visually estimated at 45-50 %. These segments of the LV are hypokinetic apex. 3.Normal appearance of the mitral valve. Normal appearance and function of the mitral valve. Mild mitral annular calcification. Trace mitral regurgitation. 4.Normal appearance and function of the tricuspid valve. Estimated peak PA systolic pressure 37 mmHg. 5.Normal pulmonic valve appearance. There is trace pulmonic regurgitation. 6.No definite vegetations noted on any of the visualized valvular apparati. If concern persists would consider PAVAN. Electronically Signed By: Zaki Panda 09-Dec-2016 19:54:27 -0700 Patient Name: PATRIZIA CAMPBELL Study Date: 09-Dec-2016 [id number]
[2016-12-10] VITALS (12 sets, daily range): BP systolic 121–177; BP diastolic 61–78; PULSE 68–80; RESP 17–19
[2016-12-10] MEDS: SOD CHLORIDE 0.9% 1,000 ML IV SCH (00:01)
[2016-12-10] MEDS: ACCU-CHEK XX SCH (02:40)
[2016-12-10] MEDS: PANTOPRAZOLE (EC) 40 MG TAB PO SCH (05:59)
[2016-12-10] MEDS: HEPARIN 5,000 UNIT/0.5 ML VIAL SC SCH ×2 (06:00→14:00)
[2016-12-10] MEDS: INSULIN ASPART [NOVOLOG] 3 ML PEN SC SCH ×6 (08:00→17:28)
[2016-12-10] MEDS: CEFEPIME 1GM/50 ML (PMX) 50 ML IVPB SCH (08:19)
[2016-12-10] MEDS: INSULIN GLARGINE [LANtus] 3 ML PEN SC SCH (08:26)
--- NOTE | 2016-12-10 13:46 | PDOCDIS ---
Discharge Instructions CONDITION Patient Condition: Stable HOME CARE INSTRUCTIONS: Special Diet: LOW FAT, LOW CHOLESTEROL ACTIVITY: Activity Restrictions: Slowly Increase Activity FOLLOW UP/APPOINTMENTS Follow-up Plan Please take your medications as prescribed, please see your doctor in the clinic in the next 1 week. RANDY WETZEL Dec 10, 2016 13:46
[2016-12-10] MEDS ORDERED: LINE600T6 PO (13:49)
--- NOTE | 2016-12-10 13:54 | CONS ---
Date/Time of Note Date/Time of Note DATE: 12/10/16 TIME: 13:53 Assessment/Plan Assessment/Plan Chief Complaint/Hosp Course No acute changes, alert, sitting up in a chair, feels better, afebrile, nad Abx: Vancomycin, Cefepime GENERAL: The patient is awake, in no acute distress. SKIN: Without generalized rash. HEENT: Within normal limits. NECK: Supple. LYMPH NODES: None palpable. CHEST: Decreased breath sounds at the bases. HEART: Without murmur or gallop. ABDOMEN: Soft, nontender, nondistended, BT present EXTREMITIES: She has left lower extremity edema which is chronic. She also has circumferential erythema with warmth on the left lower extremity up to the pelvic area. NEUROLOGIC: No focal neurological abnormality. Assessment: 1. Beta hemolytic group B strep bacteremia==> per report from another facility, repeat bld cx neg 2. LLE cellulitis/chronic lymphedema 3. History of cervical cancer status post surgery and chemotherapy in 2011. 2. Hypertension. 3. Hyperlipidemia. 4. Adult-onset diabetes mellitus. Plan: Remains stable, bld cx repeated here negative, LLE looks better, continue abx, LLE elevation, will try to obtain final sensitivities from another facility , anticipate dc on IV Rocephin or PO Zyvox to complete 2 weeks abx [facility] staff/pt/family Problems: Consultation Date/Type/Reason Admit Date/Time Dec 07, 2016 at 01:29 Type of Consultation: ID Exam/Review of Systems Vital Signs Vitals Vital Signs Date Time Temp Pulse Resp B/P Pulse Ox O2 Delivery O2 Flow Rate FiO2 12/10/16 12:02 98.3 75 19 177/68 98 12/07/16 01:00 Room Air 12/06/16 20:15 2 Intake and Output 12/09/16 12/09/16 12/10/16 15:00 23:00 07:00 Intake Total 1200 ml 400 ml Balance 1200 ml 400 ml Results Result Diagram: 12/07/16 0825 12/08/16 0725 Results 24 hrs Laboratory Tests Test 12/09/16 17:26 12/09/16 22:04 12/10/16 02:44 12/10/16 08:14 Bedside Glucose 68 L 223 H 145 89 Test 12/10/16 12:07 Bedside Glucose 172 Medications Medications Current Medications Sodium Chloride (NS) 1,000 ml @ 80 mls/hr [id number] IV Last administered on 00:01; Admin Dose 80 MLS/HR; Start 12/07/16 at 04:56 Ondansetron HCl (Zofran Inj) 4 mg Q6H PRN IV NAUSEA AND/OR VOMITING; Start at 05:00 Acetaminophen (Tylenol Tab) 650 mg Q6H PRN PO PAIN LEVEL 1-3 OR FEVER Last administered on 12/08/16 23:16; Admin Dose 650 MG; Start 12/07/16 at 05:00 Morphine Sulfate (morphine) 2 mg Q4H PRN IV PAIN LEVEL 7-10 Last administered on 12/07/16 06:44; Admin Dose 2 MG; Start 12/07/16 at 05:00 Pantoprazole (Protonix Tab) 40 mg DAILY@06 PO Last administered on 12/10/16 05:59; Admin Dose 40 MG; Start 12/07/16 at 06:00 Heparin Sodium (Porcine) (Heparin (5000 Units/0.5 ml)) 5,000 unit Q8 SC Last administered on 12/10/16 06:00; Admin Dose 5,000 UNIT; Start 12/07/16 at 06: 00 Miscellaneous Information 1 ea NOTE XX ; Start 12/07/16 at 05:30 Glucose (Glutose) 15 gm Q15M PRN PO DECREASED GLUCOSE; Start 12/07/16 at 05:30 Glucose (Glutose) 22.5 gm Q15M PRN PO DECREASED GLUCOSE; Start 12/07/16 at 05: 30 Dextrose (D50w Syringe) 25 ml Q15M PRN IV DECREASED GLUCOSE; Start 12/07/16 at 05:30 Dextrose (D50w Syringe) 50 ml Q15M PRN IV DECREASED GLUCOSE; Start 12/07/16 at 05:30 Glucagon (Glucagen) 1 mg Q15M PRN IM DECREASED GLUCOSE; Start 12/07/16 at 05: 30 Glucose (Glutose) 15 gm Q15M PRN BUCCAL DECREASED GLUCOSE; Start 12/07/16 at 05:30 Diagnostic Test (Pha) (Accu-Chek) 1 ea 02 XX Last administered on 12/10/16 02 :40; Admin Dose 1 EA; Start 12/08/16 at 02:00 Insulin Glargine (Lantus) 10 unit DAILY@08 SC Last administered on 12/10/16 08:26; Admin Dose 10 UNIT; Start 12/08/16 at 08:00 Hydralazine HCl 10 mg 10 mg Q4H PRN IV HYPERTENSION; Start 12/09/16 at 03:30 Cefepime HCl 50 ml @ 100 mls/hr Q12 IVPB Last administered on 12/10/16 08:19 ; Admin Dose 100 MLS/HR; Start 12/09/16 at 04:30 Vancomycin HCl (Vancocin) 250 ml @ 125 mls/hr Q36H IVPB Last administered on 12/09/16 12:17; Admin Dose 125 MLS/HR; Start 12/09/16 at 11:00 MAXIME BLACKWELL NP Dec 10, 2016 13:54
--- NOTE | 2016-12-10 16:10 | DS ---
DATE OF ADMISSION: 12/07/2016 DATE OF DISCHARGE: 12/10/2016 HISTORY OF PRESENT ILLNESS: This is a 76-year-old female, originally admitted on December 07, 2016, being discharged home on December 10, 2016. The patient came in with looks like sepsis secondary to underlying cellulitis of left lower extremity. She does have a prior history of cervical cancer, status post surgery and chemoradiation. She also has a history of chronic left lower extremity lymphedema. Apparently, the patient may have had this chronic left lower extremity lymphedema from possible lymph damage from her prior chemoradiation. In any event, she was placed on broad-spectrum antibiotics, seen by Infectious Disease team while she was here during her hospital stay. Her redness symptoms improved. Her leukocytosis was also resolving by the time of discharge. She had no fevers. She was able to ambulate with assistance of a front- wheel walker, able to tolerate a p.o. diet, and after speaking with Infectious Disease team, will be discharged home today with 2 weeks of antibiotics in an improved condition. DISCHARGE MEDICATIONS: She will go home with the following medications: 1. Linezolid 600 mg b.i.d. for 14 days. 2. Metformin 500 mg b.i.d. 3. Multivitamin 1 tab daily. FOLLOWUP: She will need followup with her regular doctor in clinic in the next 1 to 2 weeks. FINAL DIAGNOSES: 1. Sepsis, again secondary left lower extremity cellulitis, improved on antibiotics. 2. History of chronic left lower extremity lymphedema. 3. History of cervical cancer, status post surgery and chemoradiation in 2011. 4. Type 2 diabetes. A1c was 9.5 on this admission. Time spent for discharging patient: 40 minutes. Dictated By: Derrick Tomas MD /sana/susan /Document#: [id number] RADHA
[2016-12-10] MEDS: ACETAMINOPHEN 325 MG TAB PO PRN (16:15)
--- NOTE | 2016-12-10 20:14 | DS ---
Date/Time of Note Date/Time of Note DATE: 12/10/16 TIME: 20:12 Discharge Summary Admission/Discharge Info Admit Date/Time Dec 07, 2016 at 01:29 Discharge Date/Time Discharge Diagnosis Cellulitis Patient Condition: Good Consults Dr. Reyez Procedures 1 Hx of Present Illness This 76-year-old female presents for left leg swelling. She went to the [place] ER for confusion and nausea and vomitting. She was seen at another emergency room today with a partly treated her at all and give her Tylenol for her leg pain. The daughter also is present and she said they were " taking too long to do anything for her" so they left the hospital and brought her here. She did receive antibiotics before she left. She has a chronic issue with her legs secondary to damaged lymph nodes from her radiation treatment for her cancer. She is a diabetic on metformin with several days of increasing leg swelling and pain. The pain is circumferential. The patient has chills but no fevers. Her left lower extremity is baseline swollen/edematous compared to the left, but today there was warm and redness noted. The redness has improved since she left the hospital in [place] according to her daughter. allergies: nkda meds: see [facility] Hospital Course Addendum could not fill prescription for linezolid due to cost. Will change to p.o. broad-spectrum cephalosporin or have a home health arrange IV Rocephin. Will need to see her primary sooner than later. Etiology is possibly all lymphedema. No acute changes, alert, sitting up in a chair, feels better, afebrile, nad Abx: Vancomycin, Cefepime GENERAL: The patient is awake, in no acute distress. SKIN: Without generalized rash. HEENT: Within normal limits. NECK: Supple. LYMPH NODES: None palpable. CHEST: Decreased breath sounds at the bases. HEART: Without murmur or gallop. ABDOMEN: Soft, nontender, nondistended, BT present EXTREMITIES: She has left lower extremity edema which is chronic. She also has circumferential erythema with warmth on the left lower extremity up to the pelvic area. NEUROLOGIC: No focal neurological abnormality. Assessment: 1. Beta hemolytic group B strep bacteremia==> per report from another facility, repeat bld cx neg 2. LLE cellulitis/chronic lymphedema 3. History of cervical cancer status post surgery and chemotherapy in 2011. 2. Hypertension. 3. Hyperlipidemia. 4. Adult-onset diabetes mellitus. Plan: Remains stable, bld cx repeated here negative, LLE looks better, continue abx, LLE elevation, will try to obtain final sensitivities from another facility , anticipate dc on IV Rocephin or PO Zyvox to complete 2 weeks abx [facility] staff/pt/family Home Meds Active Scripts Linezolid (Linezolid) 600 Mg Tablet, 600 MG PO BID for 14 Days, TAB Prov:DAPHNIERANDY Mendoza 12/10/16 Reported Medications Multivitamins* (Theragran*) 1 Tab Tab, 1 TAB PO DAILY, TAB 12/07/16 Metformin* (Glucophage*) 500 Mg Tab, 500 MG PO BID, #30 TAB 07/08/16 Discontinued Reported Medications Meloxicam* (Meloxicam*) 7.5 Mg/5 Ml Oral.susp, 15 MG PO DAILY, #300 ML 07/08/16 Calcium Carbonate/Vitamin D3 (Oysco 500+D Tablet) 1 Each Tablet, 1 TAB PO DAILY , TAB 07/08/16 Follow-up Plan Please take your medications as prescribed, please see your doctor in the clinic in the next 1 week. Primary Care Provider Lorri Ken MD Pending Labs Laboratory Tests Test 12/09/16 22:04 12/10/16 02:44 12/10/16 08:14 12/10/16 12:07 Bedside Glucose 223mg/dL (70-220) 145mg/dL (70-220) 89mg/dL (70-220) 172mg/dL (70-220) Test 12/10/16 17:12 Bedside Glucose 172mg/dL (70-220) TIFFANIE AGUILAR MD Dec 10, 2016 20:14
== END 2016-12-10 20:40 | disposition home health service (06) | DRG 872 ==
LOC: E/R 19:21 → MS4 12-07 01:29
PROVIDERS: ADMIT Family Medicine; ATTEND Family Medicine
DX: A40.1 Sepsis due to streptococcus, group B (principal); N17.9 Acute kidney failure, unspecified; R65.20 Severe sepsis without septic shock; E87.2 Acidosis; L03.116 Cellulitis of left lower limb; E11.22 Type 2 diabetes mellitus with diabetic chronic kidney disease; E86.0 Dehydration; I12.9 Hypertensive chronic kidney disease with stage 1 through stage 4 chronic kidney disease, or unspecified chronic kidney disease; N18.9 Chronic kidney disease, unspecified; Z85.41 Personal history of malignant neoplasm of cervix uteri; L59.8 Other specified disorders of the skin and subcutaneous tissue related to radiation; Y84.2 Radiological procedure and radiotherapy as the cause of abnormal reaction of the patient, or of later complication, without mention of misadventure at the time of the procedure
CPT/HCPCS: 36415; 71010; 73700; 74176; 80053; 80061; 80202; 81003; 82565; 82962; 83036; 83605; 83735; 84484; 84520; 85025; 85610; 85730; 87040; 87086; 93005; 93306; 93971; 96374; 96375; 97161; J0360; J0692; J1644; J1815; J2270; J2543; J3370; J7030

== ENCOUNTER 2017-02-18 12:18 | Emergency (ER) | END 2017-02-19 03:50 | disposition home or self-care (01) ==

== ENCOUNTER 2017-02-19 10:19 | Emergency (ER) | END 2017-02-19 16:35 | disposition home or self-care (01) ==

== ENCOUNTER 2017-02-20 18:14 | Emergency (ER) | END 2017-02-20 23:49 | disposition home or self-care (01) ==

== ENCOUNTER 2017-03-15 08:54 | Inpatient (IN) | END 2017-03-19 19:19 | disposition home or self-care (01) | DRG 872 ==

== ENCOUNTER 2017-12-31 20:19 | Inpatient (IN) | END 2018-01-12 18:10 | DRG 872 ==